=== PATIENT | female | born 1960 | race Caucasian/White ===

== ENCOUNTER 2025-02-05 08:31 | Outpatient (AMB) | payer BC, SELFPAY ==
--- OUTSIDE RECORDS SUMMARY | 2025-02-05 08:36 | XMS_ITS | Clinical Summary ---
Author Organization [facility] Address [address] [place] [address] Phone Care Team Providers Care Operations Research Engineer Name Role Phone Milton Rush MD Primary Care Provider [phone] Allergies Active Allergy Reactions Criticality Noted Date Comments Cefprozil Other Medium 01/17/2025 Ciprofloxacin 12/29/2011 Other reaction(s): Rash/Dermatitis Erythromycin Nausea And Vomiting High 07/06/2005 Lactose Diarrhea 07/05/2018 Sulfa (Sulfonamide Antibiotics) Diarrhea 09/13/2023 Sulfamethoxazole-Trimeth oprim Diarrhea 05/15/2023 unknown unknown Azithromycin Other Medium 01/17/2025 Medications EPINEPHrine (EPIPEN) 0.3 mg/0.3 mL injection INJECT SINGLE DOSE NEEDED 023 Active fluticasone HFA (FLOVENT HFA) 110 mcg/actuation inhaler Take 2 inhalations by mouth 2 (two) times a day. 022 Active insulin glargine (LANTUS) 100 unit/mL injection Inject under the skin every night at bedtime. Active cholecalciferol (VITAMIN D-3) 50 mcg (2,000 unit) tablet Take 1 tablet (2,000 Units total) by mouth 1 (one) time each day. Active ASCORBIC ACID, VITAMIN C, ORAL Take by mouth. Active BLOOD-GLUCOSE METER,CONTINUOUS MISC 1 kit by Other route every 14 (fourteen) days. Active omeprazole (PriLOSEC) [address] capsule Take 1 capsule (20 mg total) by mouth. Active multivitamin (MULTIPLE VITAMINS ORAL) Take 1 tablet by mouth 1 (one) time each day. Active lancets 33 gauge misc Apply 1 Lancet topically. Active blood sugar diagnostic (Numerify Verio test strips) test strip USE TO CHECK BLOOD SUGAR ONCE A DAY 023 Active glucagon (Baqsimi) 3 mg/actuation nasal spray Administer 3 mg into affected nostril(s) if needed. Active albuterol HFA (PROAIR HFA ; PROVENTIL HFA ; VENTOLIN HFA) 90 mcg/actuation inhaler Inhale 1 puff by mouth every 6 (six) hours if needed for wheezing or shortness of breath. Active Lantus Solostar U-100 Insulin 100 unit/mL (3 mL) injection penIndications:Ty pe 2 diabetes mellitus with other diabetic neurological complication (CMS/HCC V24, [facility] V28) INJECT 40 UNITS SUBCUTANEOUSLY ONCE DAILY 30 mL 1 025 Active atorvastatin (LIPITOR) 20 mg tablet TAKE 1 TABLET AT BEDTIME 90 tablet 1 025 Active amLODIPine (NORVASC) 10 mg tablet TAKE 1 TABLET DAILY 90 tablet 1 025 Active insulin aspart (NovoLOG FlexPen) 100 unit/mL (3 mL) injection penIndications:Ty pe II diabetes mellitus with neurological manifestations (CMS/HCC V24, CMS/HCC V28) Three times a day before meals as directed MAX up to 45 units day 45 mL 1 025 Active fluticasone propionate (FLONASE) 50 mcg/actuation nasal spray Administer 2 sprays into each nostril 1 (one) time each day. Shake gently. Before first use, prime pump. After use, clean tip and replace cap. 16 g 5 025 2025 Active losartan (COZAAR) 50 mg tablet TAKE 1 TABLET DAILY 90 tablet 1 025 Active pen needle, diabetic (BD Winsome 2nd Gen Pen Needle) 32 gauge x /32 needleIndications :Type 2 diabetes mellitus with other diabetic neurological complication ([facility] V24, [facility] V28) USE DIRECTED 5 TIMES A DAY 300 each 3 025 Active blood-glucose sensor (FreeStyle Temi 3 Plus Sensor) deviceIndications :Type 2 diabetes mellitus with other diabetic neurological complication ([facility] V24, [facility] V28) Box = Kit = EA, change sensors every 2 weeks 2 kit 11 025 Active cholestyramine (QUESTRAN) 4 gram packet Take 1 packet (4 g total) by mouth 4 (four) times a day. 360 packet 1 025 Active Eliquis 5 mg tablet TAKE 1 TABLET BY MOUTH EVERY 12 HOURS 60 tablet 3 025 Active ondansetron (ZOFRAN) 8 mg tablet Take 1 tablet (8 mg total) by mouth every 8 hours as needed. 023 2024 Discontinued Eliquis 5 mg tablet TAKE 1 TABLET BY MOUTH EVERY 12 HOURS 60 tablet 3 025 2024 Discontinued Active Problems Problem Noted Date Diagnosed Date Family history of MEN (multiple endocrine neopla quentin) 11/18/2024 Mild intermittent asthma 09/26/2024 Type 2 diabetes mellitus ([facility] V24, [facility] V 28) 09/26/2024 Anal cancer ([facility] V24, [facility] V28) Decreased sensation of foot 12/15/2023 Cancer of anorectal junction ([facility] V24, [facility]/ [facility] V28) 01/04/2023 High cholesterol 10/06/2021 Severe obesity (BMI 35.0-39. 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 Hernandez - peripheral neuropathy BRENNA (obstructive sleep apnea) 10/22/2013 Overview (05/13/2024): NOT TREATED (OCTOBER 2020) [facility] Sleep Center Polysomnogram: Date 10/04/2013; Wt 225#; BMI 35; SE 66%; SM 66%; REM 34%; RDI 13 (AHI 8), REM (RDI 30 - AHI 29), Central apneas 1; Obstructive apneas 8; Mixed apneas 0; hypopneas 25; RERAs 22; average oxygen saturation 95% (lowest 88% - without saturations <88% for 5% or more of study); PLMs 15. - Obstructive Sleep Apnea - mild overall and moderate in REM; mostly hypopneas and obstructive apneas; without sleep related hypoventilation by 2019 polysomnogram. 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 Sister is homozygous. C282Y. Acid reflux disease 02/05/2009 Nephrolithiasis 08/27/2008 Overview (05/13/2024): 3-mm stone, CAT scan, 05/15/2008 Lithotripsy 01/14 Left ureter stone 07/16, hydronephrosis and hydroureter Hyperparathyroidism ([facility] V24) 02/20/2008 Overview (05/13/2024): Parathyroidectomy 03/19/2004, parathyroid hyperplasia, right upper, right lower, and left upper parathyroid resected. Allergic rhinitis 07/06/2005 Asthma 07/06/2005 Chronic sinusitis 07/06/2005 Hypertension 07/06/2005 Irritable bowel syndrome with diarrhea 5 Encounters Date Type Department Care Team Description 02/04/2025 2:48 PM EDT Hospital Encounter [facility] PET Scan [address] [place] [phone] Cancer of anorectal junction ([facility]/HCC V24, [facility] V28) 01/31/2025 9:00 AM EDT Office Visit General Surgery - [place] [address] [phone] John Barillas MD Anal cancer ([facility]/HCC V24, [facility] V28) (Primary Dx) 01/29/2025 11:15 AM EDT Office Visit [facility] Hematology Oncology [address] [place] [phone] Chrissy Briggs MD Cancer of anorectal junction ([facility]/HCC V24, [facility] V28) (Primary Dx) 01/23/2025 Telephone [facility] Hematology Oncology [address] [place] [phone] Chrissy Briggs MD 01/22/2025 8:39 AM EDT - 01/22/2025 11:59 PM EDT Hospital Encounter [facility] Neurodiagnostic [address] [place] [phone] Discharge Disposition: Home or Self Care 01/21/2025 8:39 AM EDT - 01/21/2025 11:59 PM EDT Hospital Encounter [facility] Neurodiagnostic [address] [place] [phone] Discharge Disposition: Home or Self Care 01/20/2025 7:51 AM EDT - 01/20/2025 11:59 PM EDT Hospital Encounter [facility] Neurodiagnostic [address] [place] [phone] Discharge Disposition: Home or Self Care 01/17/2025 8:27 AM EDT Anesthesia Event [facility] Endoscopy [address] [place] [phone] Pardeep Blackburn DO 01/17/2025 7:36 AM EDT - 01/17/2025 11:59 PM EDT Hospital Encounter [facility] Endoscopy [address] [place] [phone] Ngoc Antony DO Barnes, Tyanna R, CRNA Anal cancer ([facility] V24, [facility] V28) Discharge Disposition: Home or Self Care 01/15/2025 8:45 AM EDT Office Visit [facility] Hematology Oncology [address] [place] [phone] Chrissy Briggs MD Cancer of anorectal junction ([facility] V24, [facility] V28) (Primary Dx); Malignant neoplasm of anorectum ([facility] V24, [facility] V28) 01/10/2025 Telephone Gastroenterology - [place] 175 [facility] 175 [facility] [address] [place] [phone] Jessica Kirk LPN Anticoagulation (Colonoscopy on 01/17/[address] Antony) 01/09/2025 Telephone Adult Medicine [address] [phone] Milton Rush MD Referral 12/31/2024 9:00 AM EDT Office Visit Endocrinology - [address] [phone] Chetan Pulido MD Type 2 diabetes mellitus with other diabetic neurological complication ([facility] V24, [facility] V28) 12/25/2024 9:00 AM EDT Office Visit Adult Medicine [address] [phone] Barbara Coulter PA Hypertension, unspecified type (Primary Dx); Type II diabetes mellitus with neurological manifestations ([facility] V24, [facility] V28); High cholesterol; Hyperparathyroidism ([facility] V24); Anal cancer ([facility] V24, [facility] V28) 11/28/2024 10:00 AM EDT - 11/28/2024 11:59 PM EDT Hospital Encounter [address] [phone] Other cough Discharge Disposition: Home or Self Care 11/28/2024 9:30 AM EDT Office Visit Adult Medicine [address] [phone] Isaac Walsh MD Other cough (Primary Dx); Rhinitis, unspecified type; Mild intermittent asthma, unspecified whether complicated 11/27/2024 Nurse Triage Adult Medicine [address] [phone] Milton Rush MD Cough; Asthma; Sinusitis 11/23/2024 12:11 PM EDT - 11/23/2024 11:59 PM EDT Hospital Encounter [facility] MRI [address] [place] [phone] Anal cancer ([facility] V24, [facility] V28) Discharge Disposition: Home or Self Care 11/20/2024 Telephone Adult Medicine [address] [phone] Milton Rush MD Referral ([facility]) 11/14/2024 8:30 AM EDT Office Visit [address] [phone] Chetan Pulido MD Type II diabetes mellitus with neurological manifestations ([facility] V24, [facility] V28) (Primary Dx) 11/14/2024 Telephone General Surgery [facility] [address] [phone] John Barillas MD UPDATE ON REFERRAL TO DR. MEZA 11/14/2024 Telephone General Surgery [facility] [address] [phone] John Barillas MD 11/06/2024 Lab [facility] Neurodiagnostic [address] [place] [phone] Mark aSntillan MD Partial seizure disorder ([facility] V24, [facility] V28) from Last 3 Months Immunizations Name Administration Dates Next Due H1N1 Inj Preservative Free 09/10/2009 Influenza Quadravalent, MDCK , 0.5ml, preservative free (Flucelvax) 6mo and older 06/05/2019,08/17/2018 Influenza trivalent, with pr eservative (Fluzone; Afluria) 6mo and older 08/05/2015,05/25/2014,05/15/2013,05/17,05/11/2011,05/13/2010,04/22/2009 ,08/27/2008,05/16/2007,05/22/2006,05/08 Pneumococcal polysaccharide 23 valent (Pneumovax 23) 2yo and older 05/27/2014 Td Tetanus diptheria (Tdvax) 7yo and older 04/05/2018 Tdap Tetanus diptheria acell ular pertussis (Boostrix; Adacel) 7yo and older 02/20/2008 Surgical History Surgery Date Site/Laterality Comments OTHER SURGICAL HISTORY PROCEDURE: MI BIOPSY OVARY UNI/BI SEPARATE PROCEDURE; COMMENT: right ovary/ cyst removed TUBAL LIGATION PROCEDURE: HISTORICAL TUBAL LIGATION PARATHYROIDECTOMY 2002 PROCEDURE: HISTORICAL PARATHYROIDECTOMY; COMMENT: about 15 years ago COLONOSCOPY 2012 PROCEDURE: HISTORICAL COLONOSCOPY; COMMENT: Normal to cecum; propofol at [facility]. COLONOSCOPY 12/09/2002 PROCEDURE: HISTORICAL COLONOSCOPY; COMMENT: Negative/incomplete to 35 cm for rectal bleeding. BREAST SURGERY Left PROCEDURE: MI UNLISTED PROCEDURE BREAST; COMMENT: cystectomy 03/2017 neg OTHER SURGICAL HISTORY PROCEDURE: CHG GI IBS IA ANTI-CDTB&ANTI-VINCULIN ANTB PLSM ALG LITHOTRIPSY Medical History Medical History Date Comments Irritable bowel syndrome 07/06/2005 DX:Irri table bowel syndrome Hyperparathyroidism ([facility] V24) 02/20/2008 DX:Hyperparathyroidism ([facility]); COMMENT: Parathyroidectomy 03/19/2004, parathyroid hyperplasia Nephrolithiasis 08/27/2008 DX:Nephrolithias is Hypertension 07/06/2005 DX:Hypertension Allergic rhinitis 07/06/2005 DX:Allergic rh initis Chronic sinusitis 07/06/2005 DX:Chronic sin usitis Asthma 07/06/2005 DX:Asthma 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 Sister is homozygous. C282Y. GERD (gastroesophageal reflux disease) 9 DX:GERD (gastroesophageal reflux disease) Family history of colonic polyps 02/26/2009 DX:Family history of colonic polyps; COMMENT: Negative/incomplete colonoscopy 12/09/2002. Negative colonoscopy 05/31/2013, no colon cancer screening needed for 10 years. Microalbuminuria 12/07/2012 DX:Microalbumin uria; COMMENT: 116 on 06/27/2010. BRENNA (obstructive sleep apnea) 10/22/2013 DX :BRENNA (obstructive sleep apnea); COMMENT: Noncompliant with CPAP Postmenopausal bleeding 10/03/2012 DX:Postm enopausal bleeding Prediabetes 07/26/2016 DX:Prediabetes IBS (irritable bowel syndrome) D X:IBS (irritable bowel syndrome) Diabetes 1.5, managed as typ e 2 (CMS/HCC V24, CMS/HCC V28) DX:Diabetes 1.5, managed as type 2 (HCC) Rectal bleeding DX:Rectal bleedi ng Rectal cancer (CMS/HCC V24, CMS/HCC V28) Pulmonary embolus (CMS/HCC V 24, CMS/HCC V28) Family History Medical History Relation Name Comments Hypertension Brother 1 Hyperlipidemia Brother 2 Asthma Daughter 1 Asthma Daughter 2 Heart attack Father age 65, alive Breast cancer Father's side p. aunt aunt Diabetes Maternal Grandfather CHF, Hy pertension Hypertension Mother fibromyalgia, C HF, Diabetes, skin cancer, sleep apnea, CKD, athritis, colon polyps Hemochromatosis Sister 1 homozygous C 282Y Relation Name Status Comments Brother 1 Brother 2 Brother 3 Alive x1 Daughter 1 Daughter 2 Daughter 3 Alive x2 Father Alive Father's side p. aunt Maternal Grandfather Maternal Grandmother Mother Alive Paternal Grandfather Paternal Grandmother Sister 1 Sister 2 Alive x1 Social History Tobacco Use Types Packs/Day Years Used Date Smoking Tobacco: Former Cigarettes Q uit: 08/07/1976 Smokeless Tobacco: Never Tobacco Cessation:Counseling Given: Not Answered Alcohol Use Standard Drinks/Week Comments Yes 0 (1 standard drink = 0.6 oz pur e alcohol) Housing Instability Answer Date Recorde d Are you worried that in the next 2 months you may not have stable housing? No 06/17/2024 Food Access & Nutrition Answer Date Rec orded Do you have access to a vari ety of food including fruits and vegetables? Yes 06/17/2024 Access to Healthcare Answer Date Record ed Within the last 3 months, ho w many times did you visit the emergency department for your medical care? 0 06/17/2024 Health Literacy Answer Date Recorded How often do you need to hav e someone help you when you read instructions, pamphlets, or other written material from your doctor or pharmacy? Never 06/17/2024 Caregiver: How often do you need to have someone help you when you read instructions, pamphlets, or other written material from your doctor or pharmacy? Not on file 06/17/2024 Financial Risk Answer Date Recorded How hard is it for you to pa y for the very basics like food, housing, medical care, and air conditioning / heating? Not very hard 06/17/2024 Transportation Answer Date Recorded Has the lack of transportati on kept you from meetings, work, or from getting things needed for daily living? No Has the lack of transportati on kept you from medical appointments or from getting medications? No 06/17/2024 Social Isolation Answer Date Recorded How often do you feel lonely or isolated from th ose around you? Never 06/17/2024 Food Risk Answer Date Recorded Within the past 12 months we worried whether our food would run out before we got money to buy more. Never true 06/17/2024 Within the past 12 months th e food we bought just didn't last and we didn't have money to get more. Never true 06/17/2024 Dependent Care Answer Date Recorded Do you need help finding or paying for care for your loved ones. For example, children's book author or elderly care for an older adult? No 06/17/2024 Education Answer Date Recorded Do you think completing more education or training, like finishing a GED, going to college, or learning a trade, would be helpful for you? N/A 06/17/2024 Employment and Income Answer Date Recor ded During the last four weeks, have you been actively looking for work? No 06/17/2024 Living Situation Answer Date Recorded What is your living situation? 1 08/17/2023 Interpersonal Safety Answer Date Record ed Physical Abuse 01/17/2025 Verbal Abuse 01/17/2025 Comments No Sex and Gender Information Value Date Recorded Sex Assigned at Not on file Legal Sex Female 11:56 AM EST Gender Identity Not on file Sexual Orientation Not on file Obstetrics History Para Term AB IAB SAB Ectopic Multiple Livin g Live Births 2 2 2 2 Date Outcome GA Total Labor Labor/2nd/3rd Weight Sex Type Anes PTL Kristen A1 A5 Name Clin Term Term Last Filed Vital Signs Vital Sign Reading Time Taken Comments Blood Pressure 140/83 01/31/2025 8:57 AM EDT Pulse 84 01/31/2025 8:57 AM EDT Temperature 36.3 C (97.3 F) 01/31/2025 8:57 AM EDT Respiratory Rate 20 01/17/2025 8:55 AM EDT Oxygen Saturation 99% 01/29/2025 11:18 AM EDT Inhaled Oxygen Concentration - - Weight 107 kg (236 lb) 01/31/2025 8:57 AM EDT Height 168.9 cm (5' 6.5 ) 01/31/2025 8:57 AM EDT Body Mass Index 37.52 01/31/2025 8:57 AM EDT Plan of Treatment Upcoming Encounters Date Type Department Care Team (Late st Contact Info) Description 03/04/2025 8:20 AM EDT Office Visit Gastroenterology - [place] [address] [phone] Zohreh Sotelo NP [address] [phone] 04/01/2025 9:00 AM EDT Appointment [facility] Radiation Oncology [address] [place] [phone] Kristen Roe NP [address] [place] [address] 04/02/2025 9:00 AM EDT Office Visit Endocrinology [address] [phone] Chetan Pulido MD [address] [place] [address] 05/15/2025 8:15 AM EDT Office Visit Pulmonolgy - [place] [address] [phone] Jose M Hall MD [address] [address] 05/20/2025 9:45 AM EDT Office Visit [facility] Hematology Oncology [address] [place] [phone] Chrissy Briggs MD [address] [place] [address] 08/04/2025 8:30 AM EST Office Visit Adult Medicine [address] [phone] Milton Rush MD [address] [place] [phone] 10/06/2025 9:20 AM EST Appointment Radiology Department - [address] [phone] Health Maintenance Due Date Last Done Comments Diabetes: Annual Retina Eye Exam 1970 Zoster Vaccines (1 of 2) 1979 Pneumococcal Vaccine: 50+ Years (2 of 2 - PCV) 05/27/2015 05/27/2014 Pneumococcal Vaccine: Pediatrics (0 to 5 Years) and At-Risk Patients (6 to 64 Years) (2 of 2 - PCV) 05/27/2015 05/27/2014 RSV Immunization Adult Patients (1 - Risk 60-74 years 1-dose series) 2020 HIV Screening 07/16/2022 COVID-19 Vaccine (2023- season) 2024 06/25/2022, 05/14/2021, 11/05/2020, Additional history exists Diabetes: Annual Foot Exam 12/14/2024 12/15/2023 Influenza Vaccine (#1) 2025 9, 08/17/2018, 08/05/2015, Additional history exists Social Influencers of Health Screening 06/17/2025 06/17/2024 Diabetes: Annual Urine Albumin-Creatinine Ratio (uACR) 06/24/2025 06/24/2024, 12/15/2023 Diabetes: Blood Sugar Control Test (HGBA1C) 06/27/2025 12/25/2024, 06/24/2024, 12/15/2023, Additional history exists Depression Screening 11/27/2025 11/27/2024 Cervical Cancer Screening: Pap Smear 12/19/2025 12/19/2022, 12/19/2022, 12/19/2022, Additional history exists Diabetes: Annual GFR (Glomerular Filtration Rate) 12/25/2025 12/25/2024, 06/24/2024, 12/15/2023, Additional history exists Hypertension/CHF/CAD Annual BMP Blood Test 12/25/2025 12/25/2024, 06/24/2024, 12/15/2023, Additional history exists Colorectal Cancer Screening: Colonoscopy 09/21/2026 09/21/2023 Breast Cancer Screening 10/05/2026 10/06/19, 09/09/2023, 08/27/2022, Additional history exists Cervical Cancer Screening: HPV 12/20/2027 12/19/2022 DTaP,Tdap,and Td Vaccines (3 - Td or Tdap) 04/05/2028 04/05/2018, 02/20/2008 Cholesterol Screening (Lipid Panel) 12/25/2029 12/25/2024, 06/24/2024, 12/15/2023, Additional history exists Hepatitis C Screening Completed 01/08/2013 HIB Vaccines Aged Out No longer eligi ble based on patient's age to complete this topic HPV Vaccines Aged Out No longer eligi ble based on patient's age to complete this topic Hepatitis A Vaccines Aged Out No long er eligible based on patient's age to complete this topic Hepatitis B Vaccines Aged Out No long er eligible based on patient's age to complete this topic IPV Vaccines Aged Out No longer eligi ble based on patient's age to complete this topic MMR Vaccines Aged Out No longer eligi ble based on patient's age to complete this topic Meningococcal ACWY Vaccine Aged Out N o longer eligible based on patient's age to complete this topic Meningococcal B Vaccine Aged Out No l onger eligible based on patient's age to complete this topic RSV Immunization Patients Under 20 months Aged Out No longer eligible based on patient's age to complete this topic Varicella Vaccines Aged Out No longer eligible based on patient's age to complete this topic Procedures Procedure Name Priority Date/Time Associated Diagnosis Comments CONTINUOUS EEG Routine 01/21/2025 9:04 AM EDT Partial seizure disorder ([facility] V24, [facility] V28) CONTINUOUS EEG Routine 01/20/2025 9:18 AM EDT Partial seizure disorder ([facility] V24, [facility]/H[facility] V28) FLEXIBLE SIGMOIDOSCOPY Routine 01/17/2025 8:34 AM EDT Anal cancer ([facility] V24, [facility] V28) TISSUE EXAM Routine 01/17/2025 8:31 AM EDT Anal cancer ([facility]/HCC V24, [facility]/HCC V28) LIPID PANEL WITH REFLEX TO DIRECT LDL Routine 12/25/2024 9:47 AM EDT High cholesterol HEMOGLOBIN A1C Routine 12/25/2024 9:47 AM EDT Type II diabetes mellitus with neurological manifestations ([facility] V24, [facility] V28) COMPREHENSIVE METABOLIC PANEL Routine 12/25/2024 9:47 AM EDT Hypertension, unspecified type XR CHEST 2 VIEWS STAT 11/28/2024 10:0 6 AM EDT Other cough MR PELVIS WO AND W CONTRAST Routine 11/23/2024 1:17 PM EDT Anal cancer ([facility] V24, [facility] V28) MG MAMMO DIGITAL SCREENING W JUAN BILAT Routine 10/05/2024 9:06 AM EST Encounter for screening mammogram for breast cancer MICROALBUMIN CREATININE URINE RATIO Routine 06/24/2024 9:17 AM EST Type II diabetes mellitus with neurological manifestations (CMS/HCC V24, CMS/HCC V28) DIABETES FOOT EXAM Routine 12/15/2023 COLONOSCOPY Routine 09/21/2023 HPV Routine 12/19/2022 PAP SMEAR Routine 12/19/2022 HEPATITIS C SCREENING Routine 01/08/2013 from Last 3 Months or Most Recently Relevant to Health Maintenance Results * Continuous EEG (01/21/2025 9:04 AM EDT) Narrative Mark Santillan MD - 02/01/2025 3:37 PM EDT Table formatting from the original result was not included. Images from the original result were not included. [facility] [address] [place] [id number] Ambulatory Electroencephalogram Report Date of service: 01/21/25 Patient Name: Elsa Rodriguez Date of : 1960 Age: 64 y.o. Gender: female Procedure Order: Continuous EEG Ordering Provider: Mark Santillan MD Reason for Exam: Order Questions Answers Type of monitoring Unmonitored With video? No Diagnosis listed on Order: Partial seizure disorder (CMS/HCC V24, CMS/HCC V28) This is a recurrent day study. Please see report with final results. us Mark Santillan MD NEUROLOGY ORDERABLES Final Result * Continuous EEG (01/20/2025 9:18 AM EDT) Narrative Mark Santillan MD - 02/01/2025 3:37 PM EDT Table formatting from the original result was not included. Images from the original result were not included. [facility] [address] [place] [id number] Ambulatory Electroencephalogram Report Date of service: 01/20/25 Patient Name: Elsa Rodriguez Date of : 1960 Age: 64 y.o. Gender: female Procedure Order: Continuous EEG Ordering Provider: Mark Santillan MD Reason for Exam: Order Questions Answers Type of monitoring Unmonitored With video? No Diagnosis listed on Order: Partial seizure disorder (CMS/HCC V24, CMS/HCC V28) Procedure Performed: 48-hour EEG. EEG Technical Description: This study was performed using the 10-20 International Electrode System placement and single channel EKG electrode on Trex recorder. Settings included: low frequency filter of 1 Hz, high frequency filter of 70 Hz, sensitivity of 7 uV/mm, a display speed of 30 mm/sec, with a 60 Hz notched filter applied as appropriate. Modifications in these parameters were made as necessary for further waveform resolution. Video Recording: No Description: This is a 16 channel 48-hour ambulatory EEG. Patient kept a diary of each day and did not report any events. HDF EEG was separately reviewed and included wakefulness and sleep. Background EEG rhythm during wakefulness was symmetric alpha posteriorly lower amplitude faster anteriorly with some late and muscle artifacts. At times periods of posterior sharply contoured theta range discharges were noted. More specifically, sharply contoured discharges were noted in the left temporal, T3, and right temporal, T4, area. Cardiac lead did not reveal any significant abnormality. Impression: Mildly abnormal EEG suggestive of temporal irritability. us Mark Santillan MD NEUROLOGY ORDERABLES Final Result * FLEXIBLE SIGMOIDOSCOPY Anesthesia - MAC; [facility] ENDOSCOPY (01/17/2025 8:34 AM EDT) Anatomical Region Laterality Modality Endoscopy 01/17/2025 8:27 AM EDT Impressions 01/17/2025 8:34 AM EDT - No specimens collected. Recommendation: - Discharge patient to home. - Await pathology results. Narrative 01/17/2025 8:34 AM EDT [facility] GI Patient Name: Elsa Rodriguez Procedure Date: 01/17/2025 8:27 AM Date of : 1960 Age: 64 Gender: Female Note Status: Finalized Attending MD: Ngoc Antony DO, [id number] Procedure Date No Time: 01/17/2025 Procedure: Flexible Sigmoidoscopy Indications: High risk colon cancer surveillance: Personal history of colon cancer Providers: Ngoc Antony DO Referring MD: Milton Rush MD Medicines: Monitored Anesthesia Care Complications: No immediate complications. Estimated blood loss: Minimal. Estimated Blood Loss: Estimated blood loss was minimal. Procedure: Pre-Anesthesia Assessment: - - Prior to the procedure, a History and Physical was performed, and patient medications and allergies were reviewed. The patient is competent. The risks and benefits of the procedure and the sedation options and risks were discussed with the patient. All questions were answered and informed consent was obtained. Patient identification and proposed procedure were verified by the physician, the nurse, the anesthesiologist, the intermediate manager and the process engineering technician in the pre-procedure area in the endoscopy suite. Mental Status Examination: alert and oriented. Airway Examination: normal oropharyngeal airway and neck mobility. Respiratory Examination: clear to auscultation. CV Examination: normal. Prophylactic Antibiotics: The patient does not require prophylactic antibiotics. Prior Anticoagulants: The patient has taken no anticoagulant or antiplatelet agents. ASA Grade Assessment: II - A patient with severe systemic disease. After reviewing the risks and benefits, the patient was deemed in satisfactory condition to undergo the procedure. The anesthesia plan was to use monitored anesthesia care (MAC). Immediately prior to administration of medications, the patient was re-assessed for adequacy to receive sedatives. The heart rate, respiratory rate, oxygen saturations, blood pressure, adequacy of pulmonary ventilation, and response to care were monitored throughout the procedure. The physical status of the patient was re-assessed after the procedure. After obtaining informed consent, the endoscope was passed under direct vision. Throughout the procedure, the patient's blood pressure, pulse, and oxygen saturations were monitored continuously. The Olympus Gastroscope was introduced through the anus and advanced to the sigmoid colon. The flexible sigmoidoscopy was accomplished without difficulty. The patient tolerated the procedure well. The quality of the bowel preparation was good. Findings: Hemorrhoids were found on perianal exam. A small scar was found in the distal rectum. The scar tissue was healthy in appearance. Biopsies were taken with a cold forceps for histology. Estimated blood loss was minimal. Procedure Code(s): --- Professional --- 28856, Sigmoidoscopy, flexible; with biopsy, single or multiple Diagnosis Code(s): --- Professional --- Z85.038, Personal history of other malignant neoplasm of large intestine CPT copyright 2020 [employer]. All rights reserved. The codes documented in this report are preliminary and upon stull hewer review may be revised to meet current compliance requirements. NGOC Antony DO 01/17/2025 8:34:30 AM This report has been signed electronically.Ngoc Antony DO Number of Addenda: 0 Note Initiated On: 01/17/2025 8:27 AM Scope In: Scope Out: Endoscopy Department at [facility] - [address] [place] [id number] Procedure Note Ngoc Antony DO - 01/17/2025 [facility] GI Patient Name: Elsa Rodriguez Procedure Date: 01/17/2025 8:27 AM Date of : 1960 Age: 64 Gender: Female Note Status: Finalized Attending MD: Ngoc Antony DO, [id number] Procedure Date No Time: 01/17/2025 Procedure: Flexible Sigmoidoscopy Indications: High risk colon cancer surveillance: Personalhistory of colon cancer Providers: Ngoc Antony DO Referring MD: Milton Rush MD Medicines: Monitored Anesthesia Care Complications: No immediate complications. Estimated blood loss: Minimal. Estimated Blood Loss: Estimated blood loss was minimal. Procedure: Pre-Anesthesia Assessment: - - Prior to the procedure, a History and Physicalwas performed, and patient medications and allergieswere reviewed. The patient is competent. The risks and benefits of the procedure and the sedation optionsand risks were discussed with the patient. Allquestions were answered and informed consent was obtained. Patient identification and proposed procedure were verified by the physician, the nurse, the anesthesiologist, the intermediate manager and thetechnician in the pre-procedure area in the endoscopy suite. Mental Status Examination: alert and oriented.Airway Examination: normal oropharyngeal airway and neck mobility. Respiratory Examination: clear to auscultation. CV Examination: normal. Prophylactic Antibiotics: The patient does not requireprophylactic antibiotics. Prior Anticoagulants: The patient has taken no anticoagulant or antiplatelet agents. ASA Grade Assessment: II - A patient with severesystemic disease. After reviewing the risks and benefits,the patient was deemed in satisfactory condition to undergo the procedure. The anesthesia plan was touse monitored anesthesia care (MAC). Immediately priorto administration of medications, the patient was re-assessed for adequacy to receive sedatives. The heart rate, respiratory rate, oxygen saturations, blood pressure, adequacy of pulmonary ventilation,and response to care were monitored throughout the procedure. The physical status of the patient was re-assessed after the procedure. After obtaining informed consent, the endoscope was passed under direct vision. Throughout theprocedure, the patient's blood pressure, pulse, and oxygen saturations were monitored continuously. TheOlympus Gastroscope was introduced through the anus and advanced to the sigmoid colon. The flexible sigmoidoscopy was accomplished without difficulty.The patient tolerated the procedure well. The qualityof the bowel preparation was good. Findings: Hemorrhoids were found on perianal exam. A small scar was found in the distal rectum. Thescar tissue was healthy in appearance. Biopsies weretaken with a cold forceps for histology. Estimated blood loss was minimal. Procedure Code(s): --- Professional --- 28859, Sigmoidoscopy, flexible; with biopsy, singleor multiple Diagnosis Code(s): --- Professional --- Z85.038, Personal history of other malignantneoplasm of large intestine CPT copyright 2020 [employer]. All rights reserved. The codes documented in this report are preliminary and upon stull hewer reviewmay be revised to meet current compliance requirements. NGOC Antony DO 01/17/2025 8:34:30 AM This report has been signed electronically.Ngoc Antony DO Number of Addenda: 0 Note Initiated On: 01/17/2025 8:27 AM Scope In: Scope Out: Endoscopy Department at [facility] - [address] [place] [phone] IMPRESSION: - No specimens collected. Recommendation: - Discharge patient to home. - Await pathology results. 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 (See note.) - Immunohistochemical studies were performed and the results are as follows: p63: Atypical cells of interest present mainly in rounded nests. p16: Block-like immunoreactivity is present in s93-hmhqzuic cells. Interpretation: The immunohistochemical results show diffuse expression of p16 and p63 in the atypical cells of interest. Note: The atypical squamous epithelium shows diffuse, block-like immunoreactivity for p16. The rounded configuration of the nests and absence of stromal desmoplasia (seen in slides from the patient's prior biopsy specimen, [id number]) suggest that much of the neoplastic proliferation in the current biopsy represents squamous cell carcinoma in situ. However, the presence of rare single cells extending beyond the rounded nests supports interpretation as at least focally invasive squamous cell carcinoma. 5 9:32 AM EDT [facility] Comment Cinder Block Maker slide(s) from this case have been presented at Anatomic Pathology Intradepartmental Review Conference on 01/20/2025. Dr. Frandy Antony was notified of the diagnosis by Dr. Taras Graves via secure text on 01/21/2025 at 9:15 a.m. 5 9:32 AM EDT [facility] Gross Description A. Large Intestine, Rectum, cancer surgical site biopsies: Labeled LI rectum ca . Received in formalin, are four irregular soft to rubbery, elizabeth-pink to red tissue fragments, approximately ranging from 0.1 cm to 0.6 cm in greatest diameters, which are wrapped in paper and submitted in toto in one cassette, four pieces, multiple levels. Please note: Small tissue fragments may not survive processing. hs/DG 5 9:32 AM EDT [facility] Disclaimer NOTE: The immunohistochemical tests and in situ hybridization tests were developed and their performance characteristics were determined by [facility]. They have not been cleared or approved by the U.S. Food and Drug Administration. The FDA has determined that such clearance or approval is not necessary. These tests are used for clinical purposes. They should not be regarded as investigational or for research. This laboratory is certified under the Clinical Laboratory Improvement Amendments of 1988 (CLIA) as qualified to perform high complexity clinical laboratory testing. (controls appropriate) Unless otherwise specified, all tissue is 10% NB formalin fixed and paraffin embedded. 9:32 AM EDT [facility] Tissue Rectum structure / Unknown 01/17/2025 8:31 AM EDT 01/17/2025 9:48 AM EDT us Ngoc Antony DO LAB PATHOLOGY ORDERABLES Final R esult [facility] [address] [place] [address], * (ABNORMAL) Lipid panel with reflex to direct LDL (12/25/2024 9:47 AM EDT) Cholesterol 157 0 - 200 mg/dL LAB CHEMISTRY METHOD 12/25/2024 12:49 PM EDT [facility] Triglycerides 166(H) 0 - 150 mg/dL LAB CHEMISTRY METHOD 12/25/2024 12:49 PM EDT [facility] HDL 56 >=40 mg/dL LAB CHEMISTRY METHOD 12/25/2024 12:49 PM EDT [facility] LDL Calculated 68 0 - 100 mg/dL LAB CHEMISTRY METHOD 12/25/2024 12:49 PM EDT [facility] VLDL Cholesterol Arpan 33.2 mg/dL LAB CHEMISTRY METHOD 12/25/2024 12:49 PM EDT [facility] Non HDL Chol. (LDL+VLDL) 101 <145 mg/dL LAB CHEMISTRY METHOD 12/25/2024 12:49 PM EDT [facility] Chol/HDL Ratio 2.8 0.0 - 4.4 LAB CHEMISTRY METHOD 12/25/2024 12:49 PM EDT [facility] Blood Venous blood specimen / Unknown Venipuncture / Unknown 12/25/2024 9:47 AM EDT 12/25/2024 9:47 AM EDT Barbara Coulter [place] LAB BLOOD ORDERABLES Fi nal Result Performing Organization Address City/[facility]/ZIP Co de Phone Number [facility] [address] [place] [address], [place] [phone] * (ABNORMAL) Hemoglobin A1c (12/25/2024 9:47 AM EDT) Hemoglobin A1C 9.4(H) <6.5 % LAB CHEMISTRY METHOD 12/27/2024 10:34 PM EDT [facility] Mean Bld Glu Estim. 223 mg/dL LAB CHEMISTRY METHOD 12/27/2024 10:34 PM EDT [facility] Blood Venous blood specimen / Unknown Venipuncture / Unknown 12/25/2024 9:47 AM EDT 12/25/2024 9:47 AM EDT Barbara FELICIANO LAB BLOOD ORDERABLES Fi nal Result Performing Organization Address City/[facility]/ZIP Co de Phone Number [facility] [address] [place] [address], [place] [phone] * (ABNORMAL) Comprehensive metabolic panel (12/25/2024 9:47 AM EDT) Sodium 139 133 - 145 mmol/L LAB CHEMISTRY METHOD 12/25/2024 12:55 PM EDT [facility] Potassium 4.4 3.5 - 5.5 mmol/L LAB CHEMISTRY METHOD 12/25/2024 12:55 PM EDT [facility] Chloride 103 96 - 110 mmol/L LAB CHEMISTRY METHOD 12/25/2024 12:55 PM [facility] CO2 25 21 - 32 mmol/L LAB CHEMISTRY METHOD 12/25/2024 12:55 PM [facility] Anion Gap 11 3 - 11 LAB CHEMISTRY METHOD 12/25/2024 12:55 PM [facility] Glucose 239(H) 70 - 100 mg/dL LAB CHEMISTRY METHOD 12/25/2024 12:55 PM [facility] BUN 15 5 - 25 mg/dL LAB CHEMISTRY METHOD 12/25/2024 12:55 PM [facility] Creatinine 0.83 0.50 - 1.10 mg/dL LAB CHEMISTRY METHOD 12/25/2024 12:55 PM [facility] eGFR 79 >=60 mL/min/1. 73m2 LAB CHEMISTRY METHOD 12/25/2024 12:55 PM [facility] Comment:Calculation based on the Chronic Kidney Disease Epidemiology Collaboration (CKD-EPI) equation refit without adjustment for race. BUN/Creatinine Ratio 18.1 LAB CHEMISTRY METHOD 12/25/2024 12:55 PM [facility] Calcium 8.8 8.5 - 10.5 mg/dL LAB CHEMISTRY METHOD 12/25/2024 12:55 PM [facility] AST (SGOT) 30 10 - 42 unit/L LAB CHEMISTRY METHOD 12/25/2024 12:55 PM [facility] ALT (SGPT) 46 10 - 60 unit/L LAB CHEMISTRY METHOD 12/25/2024 12:55 PM [facility] Alkaline Phosphatase 141(H) 42 - 121 unit/L LAB CHEMISTRY METHOD 12/25/2024 12:55 PM [facility] Total Protein 7.6 6.0 - 8.0 g/dL LAB CHEMISTRY METHOD 12/25/2024 12:55 PM [facility] Albumin 3.6 3.2 - 5.0 g/dL LAB CHEMISTRY METHOD 12/25/2024 12:55 PM EDT [facility] Total Bilirubin 0.6 0.0 - 1.4 mg/dL LAB CHEMISTRY METHOD 12/25/2024 12:55 PM EDT [facility] Blood Venous blood specimen / Unknown Venipuncture / Unknown 12/25/2024 9:47 AM EDT 12/25/2024 9:47 AM EDT Barbara FELICIANO LAB BLOOD ORDERABLES Fi nal Result [facility] [address] [place] [address], * XR Chest 2 Views (11/28/2024 10:06 AM EDT) Anatomical Region Laterality Modality Body Radiographic Kathy ging 11/28/2024 10:2 0 AM EDT Impressions 11/28/2024 10:22 AM EDT No acute pulmonary pathology. -------- FINAL REPORT -------- Dictated By: Alisha Frank Dictated Date: 11/28/2024 10:20 ET Assigned Physician: Alisha Frank Reviewed and Electronically Signed By: Alisha Frank Signed Date: 11/28/2024 10:22 ET Workstation ID: [id number] Transcribed By: Self Edit Transcribed Date: 11/28/2024 10:20 ET Narrative 11/28/2024 10:22 AM EDT CHEST, TWO VIEWS HISTORY: Cough. TECHNIQUE: Frontal and lateral views of the chest. PRIOR: Chest x-ray 04/27/2022. FINDINGS: The lungs are clear. No pleural effusion is seen. No pneumothorax is seen. The cardiac diameter is within normal limits. No acute or aggressive appearing bony abnormalities are seen. There is mild curvature and degenerative change of the spine. Surgical clips are noted in the right upper quadrant. Procedure Note Alisha Frank MD - 11/28/2024 CHEST, TWO VIEWS HISTORY: Cough. TECHNIQUE: Frontal and lateral views of the chest. PRIOR: Chest x-ray 04/27/2022. FINDINGS: The lungs are clear. No pleural effusion is seen. No pneumothorax is seen. The cardiac diameter is within normal limits. No acute or aggressive appearing bony abnormalities are seen. There ismild curvature and degenerative change of the spine. Surgical clips are noted in the right upper quadrant. IMPRESSION: No acute pulmonary pathology. -------- FINAL REPORT -------- Dictated By: Alisha Frank Dictated Date: 11/28/2024 10:20 ET Assigned Physician: Alisha Frank Reviewed and Electronically Signed By: Alisha Frank Signed Date: 11/28/2024 10:22 ET Workstation ID: [id number] Transcribed By: Self Edit Transcribed Date: 11/28/2024 10:20 ET Isaac Walsh MD IMG XR PROCEDURES Final Result * MR Pelvis wo and w Contrast (11/23/2024 1:17 PM EDT) Anatomical Region Laterality Modality Pelvis, Body Magnetic Resonan ce 11/25/2024 1:39 PM EDT Impressions 11/25/2024 3:45 PM EDT Stable curvilinear anorectal lesion, correlating with a site of treated neoplastic disease. -------- FINAL REPORT -------- Dictated By: Jay Sinha Dictated Date: 11/25/2024 13:39 ET Assigned Physician: Jay Sinha Reviewed and Electronically Signed By: Jay Sinha Signed Date: 11/25/2024 15:45 ET Workstation ID: [id number] Transcribed By: Self Edit Transcribed Date: 11/25/2024 13:39 ET Narrative 11/25/2024 3:45 PM EDT PROCEDURE: Contrast enhanced MRI of the pelvis. TECHNIQUE: Multiplanar multisequence MRI of the pelvis with and without intravenous contrast administration. IV contrast dose: 20 mL intravenous Dotarem from a 20 mL vial with 0 mL discarded. HISTORY: Anal carcinoma, monitor COMPARISON: 02/13/2024. FINDINGS: No significant change in a curvilinear low T2 signal anorectal lesion, extending from the 5-10 o'clock position on axial images (series 5, images 18-21). The lesion measures approximately 2.0 x 0.8 cm in maximal transverse dimensions and extends craniocaudally over a length of approximately 3 cm. Unchanged involvement of the internal and external sphincter. Stable irregular architectural distortion in the adjacent fat at the 7-8 o'clock position, at the site of a soft tissue nodule seen on the 12/29/[address], but no discrete residual soft tissue nodule. No associated diffusion restriction. Sigmoid diverticulosis. Underdistention of the urinary bladder limits evaluation but appears grossly unremarkable. Anteverted uterus with no focal lesion. The junctional zone appears ill-defined and thickened. Endometrial stripe appears normal. Normal appearance of the cervix. Minimal free fluid in the pelvis. No pelvic lymphadenopathy. No focal bony lesion. Mild degenerative changes of the hips, pubic symphysis, and visualized lumbar spine. Fatty marrow replacement in the pelvis, likely secondary to radiation therapy. Procedure Note Jay Sinha MD - 11/25/2024 PROCEDURE: Contrast enhanced MRI of the pelvis. TECHNIQUE: Multiplanar multisequence MRI of the pelvis with and withoutintravenous contrast administration. IV contrast dose: 20 mL intravenous Dotarem from a 20 mL vial with 0 mLdiscarded. HISTORY: Anal carcinoma, monitor COMPARISON: 02/13/2024. FINDINGS: No significant change in a curvilinear low T2 signal anorectal lesion,extending from the 5-10 o'clock position on axial images (series 5, [id number]). The lesion measures approximately 2.0 x 0.8 cm in maximaltransverse dimensions and extends craniocaudally over a length ofapproximately 3 cm. Unchanged involvement of the internal and externalsphincter. Stable irregular architectural distortion in the adjacent fatat the 7-8 o'clock position, at the site of a soft tissue nodule seen onthe 12/29/[address], but no discrete residual soft tissue nodule.No associated diffusion restriction. Sigmoid diverticulosis. Underdistention of the urinary bladder limits evaluation but appearsgrossly unremarkable. Anteverted uterus with no focal lesion. The junctional zone appearsill-defined and thickened. Endometrial stripe appears normal. Normalappearance of the cervix. Minimal free fluid in the pelvis. No pelvic lymphadenopathy. No focal bony lesion. Mild degenerative changes of the hips, pubicsymphysis, and visualized lumbar spine. Fatty marrow replacement in thepelvis, likely secondary to radiation therapy. IMPRESSION: Stable curvilinear anorectal lesion, correlating with a site of treatedneoplastic disease. -------- FINAL REPORT -------- Dictated By: Jya Sinha Dictated Date: 11/25/2024 13:39 ET Assigned Physician: Jay Sinha Reviewed and Electronically Signed By: Jay Sinha Signed Date: 11/25/2024 15:45 ET Workstation ID: [id number] Transcribed By: Self Edit Transcribed Date: 11/25/2024 13:39 ET us John Barillas MD IMG MRI PROCEDURES Final Re sult * MG Mammo Digital Screening w Juan bilat (10/05/2024 9:06 AM EST) Anatomical Region Laterality Modality Breast Bilateral Mammography 10/07/2024 4:37 PM EST Impressions 10/07/2024 4:40 PM EST 1. No mammographic evidence of malignancy 2. Scattered fibroglandular tissue BI-RADS CATEGORY: 2 - BENIGN RECOMMENDATION: Screening bilateral mammogram is recommended in 1 year. Mammo Location: [facility], [address] [place] [address], [id number], . -------- FINAL REPORT -------- Dictated By: Tamela Sutton Dictated Date: 10/07/2024 16:37 ET Assigned Physician: Tamela Sutton Reviewed and Electronically Signed By: Tamela Sutton Signed Date: 10/07/2024 16:40 ET Workstation ID: [id number] Transcribed By: Self Edit Transcribed Date: 10/07/2024 16:37 ET Narrative 10/07/2024 4:40 PM EST A BILATERAL DIGITAL 3D SCREENING MAMMOGRAPHY HISTORY: Routine screening. Family history of breast cancer COMPARISON: Multiple priors dating back to 05/25/2020 Technique: Bilateral full field digital mammography (3D) was performed using standard CC and MLO projections CAD was used to evaluate this mammogram. FINDINGS: Right: No suspicious masses, groups of microcalcification or areas of architectural distortion identified. Stable typically benign parenchymal asymmetries. Left: No suspicious masses, groups of microcalcification or areas of architectural distortion identified. Stable typically benign parenchymal asymmetries. BREAST DENSITY: B - There are scattered areas of fibroglandular density. Procedure Note Tamela Sutton MD - 10/07/2024 A BILATERAL DIGITAL 3D SCREENING MAMMOGRAPHY HISTORY: Routine screening. Family history of breast cancer COMPARISON: Multiple priors dating back to 05/25/2020 Technique: Bilateral full field digital mammography (3D) was performedusing standard CC and MLO projections CAD was used to evaluate this mammogram. FINDINGS: Right: No suspicious masses, groups of microcalcification or areas ofarchitectural distortion identified. Stable typically benign parenchymalasymmetries. Left: No suspicious masses, groups of microcalcification or areas ofarchitectural distortion identified. Stable typically benign parenchymalasymmetries. BREAST DENSITY: B - There are scattered areas of fibroglandular density. IMPRESSION: 1. No mammographic evidence of malignancy 2. Scattered fibroglandular tissue BI-RADS CATEGORY: 2 - BENIGN RECOMMENDATION: Screening bilateral mammogram is recommended in 1 year. Mammo Location: [facility], [address] [place] [address], [id number], . -------- FINAL REPORT -------- Dictated By: Tamela Sutton Dictated Date: 10/07/2024 16:37 ET Assigned Physician: Tamela Sutton Reviewed and Electronically Signed By: Tamela Sutton Signed Date: 10/07/2024 16:40 ET Workstation ID: [id number] Transcribed By: Self Edit Transcribed Date: 10/07/2024 16:37 ET us Milton Rush MD IM BI PROCEDURES Final Result * (ABNORMAL) Microalbumin creatinine urine ratio (06/24/2024 9:17 AM EST) Creatinine, Urine 333.0 mg/dL LAB CHEMISTRY METHOD 06/24/2024 10:58 AM EST [facility] Microalb, Ur 53.0(H) 0.0 - 29.0 mg/L LAB CHEMISTRY METHOD 06/24/2024 10:58 AM EST [facility] Microalb/Crea t Ratio 16 <30 mg/g creat LAB CHEMISTRY METHOD 06/24/2024 10:58 AM EST [facility] Urine Urine specimen obtained by clean catch procedure / Unknown Non-blood Collection / Unknown 06/24/2024 9:17 AM EST 06/24/2024 9:17 AM EST Milton Rush MD LAB URINE ORDERABLES Final [facility] [address] [place] [address], * Diabetes Foot Exam (12/15/2023) Pathologist [facility] Diabetes: Annual Foot Exam abstracted Historical Provider HEALTH MAINTENANCE Final Result * Colonoscopy (09/21/2023) [facility] Colonoscopy no interpretation , abstracted Anatomical Region Laterality Modality Other Historical Provider HEALTH MAINTENANCE Final Result * Cervical Cancer Screening: HPV (12/19/2022) [facility] Cervical Cancer Screening: HPV no interpretation , abstracted Historical Provider HEALTH MAINTENANCE Final Result * Pap smear (12/19/2022) 12/19/2022 Narrative HISTORICAL TESTING LAB RESULTING AGENCY - 12/26/2022 7:40 AM EDT [id number] THINPREP PAP, IMAGED: NEGATIVE FOR SQUAMOUS INTRAEPITHELIAL LESION AND MALIGNANCY . ZEKE GONZALEZ(ASCP) (CASE ELECTRONICALLY SIGNED 12 25 2022) RESULT OF APTIMA HIGH RISK HPV ASSAY: HIGH RISK HPV: NEGATIVE (SEROTYPES 16,18,31,33,35,39,45,51,52,56,58,59,66,68) COMPLETED ON 2022-12-20 ADEQUACY: SATISFACTORY ENDOCERVICAL/TRANSFORMATION ZONE COMPONENT PRESENT. SOURCE: THINPREP PAP HPV ANY DX: REFLEX 16 AND 18, CERVICAL, IMAGED CLINICAL INFORMATION: HPV ANY DIAGNOSIS. MENOPAUSE, PAP HX NEGATIVE, LMP 08/21/12, [Z01.419] Maria E Olmos DO LAB CYTOLOGY ORDERABLES Final Result HISTORICAL TESTING LAB RESULTING AGENCY * Hepatitis C Screening (01/08/2013) Hepatitis C Screening abstracted Historical Provider HEALTH MAINTENANCE Final Result from Last 3 Months or Most Recently Relevant to Health Maintenance Insurance [facility] Care Teams Operations Research Engineer Relationship Specialty Start Date End Date Milton Rush MD [address] [place] [id number] PCP - General Internal Medicine 02/11/20
--- OUTSIDE RECORDS SUMMARY | 2025-02-05 08:36 | XMS_ITS | Clinical Summary ---
Author Organization [facility] Address [address] [place] [address] Care Team Providers Care Padding Machine Operator Name Role Phone Milton Rush MD Primary Care Provider [phone] Allergies Active Allergy Reactions Criticality Noted Date Comments Ciprofloxacin 12/29/2011 Other reaction(s): Rash/Dermatitis Erythromycin Nausea And Vomiting High 07/06/2005 Lactose Diarrhea 07/05/2018 Medications Medication Sig Dispensed Refills Start Date End Date Status albuterol 108 (90 Base) MCG/ACT inhaler Inhale 1 puff into the lungs. 0 07/13/2022 Active amLODIPine (NORVASC) tablet 10 mg Take 1 tablet (10 mg total) by mouth daily. 0 08/26/2022 Active atorvastatin (LIPITOR) tablet 20 mg Take 1 tablet (20 mg total) by mouth daily. 0 08/26/2022 Active EPINEPHrine 0.3 MG/0.3ML SOAJ INJECT SINGLE DOSE NEEDED 0 11/01/2022 Active fluticasone (Flovent HFA) 110 MCG/ACT inhaler Take 2 inhalations by mouth 2 (two) times a day. 0 03/23/2022 Active losartan (COZAAR) tablet 50 mg Take 1 tablet (50 mg total) by mouth daily. 0 08/26/2022 Active ondansetron (ZOFRAN) 8 MG tablet Take 1 tablet (8 mg total) by mouth every 8 (eight) hours as needed for nausea. 20 tablet 3 01/16/2023 Active Additional Information Patient not taking.Reported on 12/05/2023 insulin glargine (LANTUS) injection 100 units/mL Inject under the skin every night at bedtime. 0 Active insulin lispro (HumaLOG) injection 100 units/mL Inject under the skin 3 (three) times a day before meals. 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 Social History Tobacco Use Types Packs/Day Years Used Date Smoking Tobacco: Never Smokeless Tobacco: Never Tobacco Cessation:Counseling Given: Not Answered Alcohol Use Standard Drinks/Week Comments Yes 0 (1 standard drink = 0.6 oz pur e alcohol) 1 or 2 times a year Sex and Gender Information Value Date Recorded Sex Assigned at Female 02/13/2023 12:08 PM EDT Gender Identity Female 02/13/2023 12:08 PM EDT Sexual Orientation Straight 02/13/2023 12 :08 PM EDT Job Start Date Occupation Industry Not on file Not on file Not on file Last Filed Vital Signs Vital Sign Reading Time Taken Comments Blood Pressure 130/75 12/05/2023 9:05 AM EDT Pulse 92 12/05/2023 9:05 AM EDT Temperature 36.4 C (97.6 F) 12/05/2023 9:05 AM EDT Respiratory Rate 18 02/13/2023 11:47 AM EDT Oxygen Saturation 100% 12/05/2023 9:05 AM EDT Inhaled Oxygen Concentration - - Weight 94.8 kg (209 lb) 12/05/2023 9:05 AM EDT Height 167.6 cm (5' 6 ) 12/05/2023 9:05 AM EDT Body Mass Index 33.73 12/05/2023 9:05 AM EDT Plan of Treatment Health Maintenance Due Date Last Done Comments Hepatitis C Screening 1960 Depression Screening 1972 BMI Counseling 1978 Preventative Health Evaluation 1978 Shingrix-Zoster Vaccine (1 of 2) 1979 Cervical Cancer Screening (Pap Smear) 1981 Colon Cancer Screening (Colonoscopy) 2005 Breast Cancer Screening (Mammogram) 2010 Pneumococcal Vaccine (2 of 2 - PCV) 05/27/2015 05/27/2014 Pneumococcal Vaccine (2 of 2 - PCV) 05/27/2015 05/27/2014 DTap / Tdap / Td (2 - Td or Tdap) 02/19/2018 02/20/2008 COVID-19 Vaccine (2 - Pfizer risk series) 07/16/2022 06/25/2022 Influenza Vaccine (Season Ended) 2025 06/05/2019, 08/17/2018, 08/05/2015, Additional history exists RSV Adult > 60+ Yrs or (1 - 1-dose 75+ series) 2035 Hepatitis B Vaccines Aged Out No long er eligible based on patient's age to complete this topic RSV Ped < 20 months Aged Out No longe r eligible based on patient's age to complete this topic Care Teams Padding Machine Operator Relationship Specialty Start Date End Date Milton Rush MD PCP - General Internal Medicine 12/02/22
--- NOTE | 2025-02-05 08:40 | MHC.OFFVIS ---
Intake Visit Reasons: fu after AMB EEG Allergies erythromycin base (From ERYTHROCIN) Allergy (Unknown, Unverified 04/23/20 19:51) UNKNOWN HPI Comments Details: 64 y/o woman with DM, rectal cancer treated with chemo and radiation in 2022, h/o chronic inflammatory demyelinating polyneuropathy is here for episodes of dizziness.she has been having brief episodes of blurred vision like her eyes were moving or jumping.? Each episode lasting for a second or a few seconds.? She did not feel confused or unsteady with it.? There was no pain or headache.? There was no known trigger.? [facility] Medical History (Updated 02/05/25 @ 09:04 by Mark Santillan MD) Kidney stones Rectal cancer Hypertension Partial seizure disorder BRENNA (obstructive sleep apnea) Mild cognitive impairment CIDP (chronic inflammatory demyelinating polyneuropathy) Gait disorder Diabetes mellitus Peripheral neuropathy Family History (Updated 02/04/25 @ 15:28 by Rachel White MA) Mother Diabetes mellitus CAD (coronary artery disease) COPD (chronic obstructive pulmonary disease) CHF (congestive heart failure) Physical Exam Neuro Other: Mental Status: Alert with normal orientation and attention. Normal spontaneous speech, fluency, and comprehension. No obvious issues with mood and memory. Affect is appropriate. Cranial Nerves: CN II: Visual dominguez full to confrontation, visual acuity intact. CN III, IV, : Pupils equal, round, reactive to light and accommodation. Extraocular movements are normal. CN V: Facial sensation is normal. CN VII: Facial movements symmetrical. CN VIII: Hearing intact to bedside conversation is normal. Motor: Bulk and tone normal in all extremities. No significant muscle weakness in arms and legs. No drift. Gait and Station: No obvious gait abnormality. No ataxia or instability. Sensory: Intact to light touch, pinprick, and vibration. Romberg is negative. Extrapyramidal: Full facial expressions and blinking. No rigidity. Movements are appropriate with no tremor or abnormality. Speech: Normal; no dysarthria or tremor. Assessment & Plan Assessment & Plan (1) Partial seizure disorder: Code(s): G40.109 - Localization-related (focal) (partial) symptomatic epilepsy and epileptic syndromes with simple partial seizures, not intractable, without status epilepticus Category: Medical Plan She was educated but her diagnosis and was advised to take the medicine to prevent any further spells especially now that she was driving. So far she did not have an episode where she would lose her mind or get confused but episodes now then were still happening. After discussing risks and benefit of medicine levetiracetam 250 mg twice a day was prescribed and side effects were discussed. Medications: New levetiracetam 250 mg PO BID 60 tabs 2RF Coding Level of Care Code Tele New Pt Level 4 (66044) Diagnoses Partial seizure disorder G40.109
== END 2025-02-05 09:03 | disposition home or self-care (01) ==
LOC: HO.HSM 08:32
PROVIDERS: PCP Internal Medicine Endocrinology, Diabetes & Metabolism; Visit Provider Psychiatry & Neurology Neurology
DX: G40.109 Localization-related (focal) (partial) symptomatic epilepsy and epileptic syndromes with simple partial seizures, not intractable, without status epilepticus (principal)
CPT/HCPCS: 99204

== ENCOUNTER → 2025-06-20 13:41 | Outpatient (BNV) | payer BC, SELFPAY | PROVIDERS: PCP Internal Medicine; Visit Provider Radiology Diagnostic Radiology | DX: G40.109 Localization-related (focal) (partial) symptomatic epilepsy and epileptic syndromes with simple partial seizures, not intractable, without status epilepticus (principal) | CPT/HCPCS: 70553 ==

== ENCOUNTER 2025-06-20 13:42 | Outpatient (REF) | payer BC, SELFPAY ==
--- OUTSIDE RECORDS SUMMARY | 2025-06-17 13:30 | XMS_ITS | Encounter Summary ---
Author Organization [facility] Address [address] [place] [address] Care Team Providers Care Java Web Developer Name Role Phone Milton Rush MD Primary Care Provider [phone] Reason for Visit * Reason Comments Rectal Bleeding Encounter Details Date Type Department Care Team (Late st Contact Info) Description 06/17/2025 1:30 PM EST Office Visit Adult Medicine [facility] [address] [place] [address] Lianna Segal, SCIENTIFIC RESEARCH MANAGER [address] [place], [place] Bleeding (Primary Dx) Social History Tobacco Use Types Packs/Day Years Used Date Smoking Tobacco: Former Cigarettes 0 Q uit: 08/07/1976 Smokeless Tobacco: Never Tobacco [...] care for your loved ones. For example, child care team lead or elderly care for an older adult? [...] Date Recorded What is your living situation? Unrecognized valu e 06/17/2024 Interpersonal Safety Answer Date Record ed Physical Abuse Unrecognized value 01/17/2025 Verbal Abuse Unrecognized value 01/17/2025 Comments No Sex and Gender Information Value Date Recorded Sex Assigned at Not on file Legal Sex Female 11:56 AM EST Gender Identity Not on file Sexual Orientation Not on file documented as of this encounter Last Filed Vital Signs Vital Sign Reading Time Taken Comments Blood Pressure 85/61 06/17/2025 1:20 PM EST Pulse 92 06/17/2025 1:20 PM EST Temperature 36.4 C (97.5 F) 06/17/2025 1:20 PM EST Respiratory Rate 15 06/17/2025 1:20 PM EST Oxygen Saturation 97% 06/17/2025 1:20 PM EST Inhaled Oxygen Concentration - - Weight 94.2 kg (207 lb 11.2 oz) 06/17/2025 1:20 PM EST Height 168.9 cm (5' 6.5 ) 06/17/2025 1:20 PM EST Body Mass Index 33.02 06/17/2025 1:20 PM EST documented in this encounter Progress Notes * Lianna Segal NP - 06/17/2025 1:30 PM EST PATIENT'S PCP: Milton Rush MD LAST VISIT IN THIS DEPARTMENT: 06/12/2025 I have obtained verbal consent from Elsa Rodriguez prior to the recording. I have advised Elsa Rodriguez that she may refuse the recording and require the recording to be turned off at any time during this encounter. Elsa Rodriguez is a 64 y.o. (: 1960) female who presents today for: Chief Complaint Patient presents with Rectal Bleeding SUBJECTIVE History of Present Illness The patient presents for evaluation of blood in the rectum. She underwent a rectal resection on 03/06/2025, during which a flap was placed in the buttock area.Postoperatively, she noticed a small amount of bright red blood, an occurrence that had not been previously experienced. Despite daily monitoring, no further bleeding has been observed. A family member who provided care post-surgery also reported no significant changes. She has been cautious in heractivities, including walking and washing the area, and has been using a donut-shaped cushion to alleviate pressure on the buttock. She has recently resumed part-time work, which involves increased sitting and bending, leading to discomfort and tenderness in the area. She has an upcoming appointment with gastroenterology on 06/26/2025. 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 PAST SURGICAL HISTORY: Rectal resection on 03/06/2025 Review Of System See HPI PAST MEDICAL HISTORY: Patient Active Problem List Diagnosis Date Noted Family history of MEN (multiple endocrine neoplasia) 11/18/2024 Mild intermittent asthma 09/26/2024 Type 2 diabetes mellitus ([facility] V24, [facility] V28) 09/26/2024 Anal cancer ([facility] V24, [facility] V28) 01/03/2024 Decreased sensation of foot 12/15/2023 Cancer of anorectal junction ([facility] V24, [facility] V28) 01/04/2023 High cholesterol 10/06/2021 Severe obesity (BMI 35.0-39.9) with comorbidity ([facility] V24, [facility] V28) 10/12/2020 Type II diabetes mellitus with renal manifestations ([facility] V24, [facility] V28) 10/12/2020 Aortic dilatation ([facility] V24) 05/22/2020 PLMD (periodic limb movement disorder) 03/05/2020 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 ([facility] V24) 01/09/2020 Type II diabetes mellitus with neurological manifestations ([facility] V24, [facility] V28) 08/14/2019 BRENNA (obstructive sleep apnea) 10/22/2013 Microalbuminuria 12/07/2012 Postmenopausal bleeding 10/03/2012 Iron metabolism disorder 02/26/2009 Acid reflux disease 02/05/2009 Nephrolithiasis 08/27/2008 Hyperparathyroidism ([facility] V24) 02/20/2008 Allergic rhinitis 07/06/2005 Asthma 07/06/2005 Chronic sinusitis 07/06/2005 Hypertension 07/06/2005 Irritable bowel syndrome with diarrhea 07/06/2005 Surgical History[1] SOCIAL HISTORY: Social History Tobacco Use Smoking status: Former Current packs/day: 0.00 Types: Cigarettes Quit date: 08/07/1976 Years since quittin.8 Smokeless tobacco: Never Substance Use Topics Alcohol use: Yes FAMILY HISTORY: Family History[2] Family Status Relation Name Status Mother Alive Father Alive Sister (Not Specified) Sister Alive x1 Daughter (Not Specified) Daughter (Not Specified) Daughter Alive x2 MGM MGF PGM PGF Brother (Not Specified) Brother (Not Specified) Brother Alive x1 Father's mariah p. aunt No partnership data on file OBJECTIVES Vitals: 06/17/25 1320 BP: 85/61 Pulse: 92 Resp: 15 Temp: 36.4 ??C (97.5 ??F) TempSrc: Oral SpO2: 97% Weight: 94.2 kg (207 lb 11.2 oz) Height: 1.689 m (66.5 ) BP Readings from Last 5 Encounters: 06/17/25 85/61 05/20/25 125/76 01/31/25 (!) 140/83 01/29/25 130/81 01/17/25 130/81 Body mass index is 33.02 kg/m??. BMI is greater than 25.0 (above the normal range) - see Plan Wt Readings from Last 5 Encounters: 06/17/25 1320 94.2 kg (207 lb 11.2 oz) 05/20/25 0946 94.3 kg (208 lb) 01/31/25 0857 107 kg (236 lb) 01/29/25 1118 107 kg (235 lb) 01/17/25 0802 107 kg (236 lb) 01/10/25 1200 107 kg (235 lb) Allergies[3] Active Medications: Current Outpatient Medications Medication Instructions albuterol HFA (PROAIR HFA ; PROVENTIL HFA ; VENTOLIN HFA) 90 mcg/actuation inhaler USE 1 INHALATIONORALLY EVERY 6 HOURS NEEDED FOR COUGH, WHEEZING, OR SHORTNESS OF BREATH FOR UP TO 90 DAYS amLODIPine (NORVASC) 10 mg, oral, Daily ASCORBIC ACID, VITAMIN C, ORAL Take by mouth. atorvastatin (LIPITOR) 20 mg, oral, at bedtime. Baqsimi 3 mg, As needed blood sugar diagnostic (OneTouch Verio test strips) test strip USE TO CHECK BLOOD SUGAR ONCE A DAY BLOOD-GLUCOSE METER,CONTINUOUS MISC 1 kit, Every 14 days blood-glucose sensor (FreeStyle Temi 3 Plus Sensor) device change sensors every 15 days cholecalciferol (VITAMIN D-3) 50 mcg (2,000 unit) tablet 1 tablet, Daily Eliquis 5 mg, oral, Every 12 hours EPINEPHrine (EPIPEN) 0.3 mg/0.3 mL injection INJECT SINGLE DOSE NEEDED fluticasone HFA (FLOVENT HFA) 110 mcg/actuation inhaler Take 2 inhalations by mouth 2 (two) times aday. fluticasone propionate (FLONASE) 50 mcg/actuation nasal spray 2 sprays, Each Nostril, Daily, Shake gently. Before first use, prime pump. After use, clean tip and replace cap. insulin aspart (NovoLOG FlexPen) 100 unit/mL (3 mL) injection pen Three times a day before meals asdirected MAX up to 45 units day insulin glargine (Lantus Solostar U-100 Insulin) 100 unit/mL (3 mL) injection pen 20 units two times daily lancets 33 gauge misc 1 each levETIRAcetam (KEPPRA) 250 mg, 2 times daily losartan (COZAAR) 50 mg, oral, Daily multivitamin (MULTIPLE VITAMINS ORAL) 1 tablet, Daily Winsome 2nd Gen Pen Needle 32 gauge x 5/32 needle 1 each, extracorporeal, 4 times daily omeprazole (PRILOSEC) 20 mg Physical Exam Constitutional: Appearance: Normal appearance. Genitourinary: Rectum: Normal. No external hemorrhoid. Neurological: General: No focal deficit present. Mental Status: She is alert and oriented to person, place, and time. LABORATORY: CBC: No results found for: WBC , HGB , HCT , MCV , PLT Lab Results Component Value Date LDLCALC 68 12/25/2024 1. Bleeding Assessment & Plan Postoperative bleeding A small amount of bright red blood was noted from the flap on the buttock area, which occurred onceand has not recurred. The surgical site appears to be healing well with no signs of infection or complications. She has been advised to continue monitoring the area and to avoid excessive pressure or strain. She is using a donut-shaped cushion to alleviate pressure while sitting. She has an upcoming appointment with gastroenterology on 06/26/2025. Patient understands the plan and is in agreement with the plan. FOLLOW-UP: No follow-ups on file. Health Maintenance Due Topic Date Due Diabetes: Annual Retina Eye Exam Never done Zoster Vaccines (1 of 2) Never done RSV Immunization Adult Patients (1 - Risk 50-74 years 1-dose series) Never done HIV Screening Never done Diabetes: Annual Foot Exam 12/14/2024 Influenza Vaccine (1) 04/07/2025 COVID-19 Vaccine (2024- season) 2025 Pneumococcal Vaccine: 50+ Years (2 of 2 - PCV) 05/27/2025 Social Influencers of Health Screening 06/17/2025 Lianna Segal NP ADULT MEDICINE [address] I have obtained verbal consent from Elsa Rodriguez prior to the recording. I have advised Elsa Rodriguez that she may refuse the recording and require the recording to be turned off at any time during this encounter. Today's documentation was made using voice recognition software.This note may contain grammatical errors secondary to this software. [1] Past Surgical History: Procedure Laterality Date BREAST SURGERY Left PROCEDURE: OR UNLISTED PROCEDURE BREAST; COMMENT: cystectomy 03/2017 neg COLONOSCOPY 2012 PROCEDURE: HISTORICAL COLONOSCOPY; COMMENT: Normal to cecum; propofol at [facility]. COLONOSCOPY 12/09/2002 PROCEDURE: HISTORICAL COLONOSCOPY; COMMENT: Negative/incomplete to 35 cm for rectal bleeding. LITHOTRIPSY OTHER SURGICAL HISTORY PROCEDURE: OR BIOPSY OVARY UNI/BI SEPARATE PROCEDURE; COMMENT: right ovary/ cyst removed OTHER SURGICAL HISTORY PROCEDURE: CHG GI IBS IA ANTI-CDTB&ANTI-VINCULIN ANTB PLSM ALG PARATHYROIDECTOMY 2002 PROCEDURE: HISTORICAL PARATHYROIDECTOMY; COMMENT: about 15 years ago TUBAL LIGATION PROCEDURE: HISTORICAL TUBAL LIGATION [2] Family History Problem Relation Name Age of Onset Hypertension Mother fibromyalgia, CHF, Diabetes, skin cancer, sleep apnea, CKD, athritis, colon polyps Heart attack Father age 65, alive Hemochromatosis Sister homozygous C282Y Asthma Daughter Asthma Daughter Diabetes Maternal Grandfather CHF, Hypertension Hypertension Brother Hyperlipidemia Brother Breast cancer Father's side p. aunt 40 aunt [3] Allergies Allergen Reactions Erythromycin Nausea And Vomiting Cefzil [Cefprozil] Other Zithromax [Azithromycin] Other Ciprofloxacin Other reaction(s): Rash/Dermatitis Lactose Diarrhea Sulfa (Sulfonamide Antibiotics) Diarrhea Sulfamethoxazole-Trimethoprim Diarrhea unknown unknown documented in this encounter Plan of Treatment Upcoming Encounters Date Type Department Care Team (Late st Contact Info) Description 06/25/2025 1:45 PM EST Appointment Radiology Department [address] [phone] 06/26/2025 8:00 AM EST Office Visit Gastroenterology - [address] [facility] [address] [place] [phone] Zohreh Sotelo, YORDAN [address] [facility] [address] [place] [address] 06/26/2025 8:30 AM EST Clinical Support General Surgery - [place] [address] [facility] [address] [place] [phone] 07/07/2025 3:30 PM EST Office Visit Pulmonology - [place] [address] [facility] [address] [place] [address] Jose M Hall MD [address] [place] [phone] 07/25/2025 9:00 AM EST Office Visit [facility] Hematology Oncology [address] [place] [phone] Chrissy Briggs MD [address] [place] [address] 08/04/2025 8:30 AM EST Office Visit Adult Medicine [facility] - [address] [phone] Milton Rush MD [address] [place] [address] 10/11/2025 9:30 AM EST Appointment Radiology Department - [address] [phone] documented as of this encounter Visit Diagnoses Diagnosis Bleeding- Primary Unspecified hemorrhage documented in this encounter Additional Health Concerns Assessment Noted Time PHQ-9 Depression Total Score: 0 11/28/19 25 4:50 PM EDT documented as of this encounter Care Teams Java Web Developer Relationship Specialty Start Date End Date Milton Rush MD [address] [place] [address] PCP - General Internal Medicine 02/11/20 documented as of this encounter
--- OUTSIDE RECORDS SUMMARY | 2025-06-18 23:59 | XMS_ITS | Continuity of Care Document ---
Author Organization [facility] [place] [address] [facility], [address] [place] [address]- Care Team Providers Care Lighting Engineering Technician Name Role Phone Victor Manuel ROMERO MD, Milton Bob Primary Care Physician [phone] Encounter 06/11/25 - 06/18/25 [facility] [address], [address] [place] [address]- Attending Physician: Miguelina Caruso Admitting Physician: Miguelina Caruso Referring Physician: Miguelina Caruso Encounter Type: OutPatient One Time Allergies, Adverse Reactions, Alerts Substance Criticality Severity Reaction Reaction Severity Status erythromycin Active Zithromax 1 Miscellaneous Acti ve Cefzil 2 Miscellaneous Active Grass 3 Miscellaneous Active Bactrim 4 Miscellaneous Active Dust 5 Miscellaneous Active 1unknown 2unknown 3sinus issues 4unknown 5sinus issues Medications amLODIPine 10 mg oral tablet 10 mg, 1, tablet, By Mouth, Daily, Refills 0, Maintenance, 08/26/22 8:45:00 AM EST, Partial fill upon patient request if the prescription is for a schedule II opioid drug. Start Date: 08/26/22 Status: Ordered Medication Dispense Status: Completed Total Allowed Fills: 1 Fills Dispensed: 0 atorvastatin 20 mg oral tablet 1 tablet = 20 mg, By Mouth, Daily, 0 Refills, Maintenance, 08/26/22 8:45:00 AM EST, Partial fill upon patient request if the prescription is for a schedule II opioid drug. Start Date: 08/26/22 Status: Ordered Medication Dispense Status: Completed Total Allowed Fills: 1 Fills Dispensed: 0 cholestyramine 4 g/4.8 g oral powder for reconstitution = 4 Gm, By Mouth, 2 times a day, 0 Refills, Maintenance, 08/26/22 8:45:00 AM EST, Partial fill upon patient request if the prescription is for a schedule II opioid drug. Start Date: 08/26/22 Status: Ordered Medication Dispense Status: Completed Total Allowed Fills: 1 Fills Dispensed: 0 glipiZIDE 5 mg oral tablet 5 mg, 1, tablet, By Mouth, Daily, Refills 0, Maintenance, 08/26/22 8:46:00 AM EST, Partial fill uponpatient request if the prescription is for a schedule II opioid drug. Start Date: 08/26/22 Status: Ordered Medication Dispense Status: Completed Total Allowed Fills: 1 Fills Dispensed: 0 losartan 50 mg oral tablet 50 mg, 1, tablet, By Mouth, Daily, Refills 0, Maintenance, 08/26/22 8:46:00 AM EST, Partial fill upon patient request if the prescription is for a schedule II opioid drug. Start Date: 08/26/22 Status: Ordered Medication Dispense Status: Completed Total Allowed Fills: 1 Fills Dispensed: 0 omeprazole 20 mg oral delayed release tablet 1 tablet = 20 mg, By Mouth, Daily, 0 Refills, Maintenance, 08/26/22 8:46:00 AM EST, Partial fill upon patient request if the prescription is for a schedule II opioid drug. Start Date: 08/26/22 Status: Ordered Medication Dispense Status: Completed Total Allowed Fills: 1 Fills Dispensed: 0 Please obtain the following labs at any [facility] lab: Serum Calcium & albumin Please obtain the following labs at any [facility] lab: Serum Calcium & albumin, See Instructions, # 1 each, Refills 0, Tot. Refills 0, Maintenance, Obtain these labs in 1 week, 12/13/22 12:18:00 PM EDT, Supply Start Date: 12/13/22 Status: Ordered Medication Dispense Status: Completed Quantity: 1.0 Unit: each Total Allowed Fills: 1 Fills Dispensed: 0 Trulicity Pen 4.5 mg/0.5 mL subcutaneous solution = 4.5 mg, Subcutaneous Infusion, 0 Refills, Maintenance, 08/26/22 8:46:00 AM EST, Partial fill upon patient request if the prescription is for a schedule II opioid drug. Start Date: 08/26/22 Status: Ordered Medication Dispense Status: Completed Total Allowed Fills: 1 Fills Dispensed: 0 Vitamin C By Mouth, Daily, 0 Refills, Maintenance, 08/26/22 8:46:00 AM EST, Partial fill upon patient request if the prescription is for a schedule II opioid drug. Start Date: 08/26/22 Status: Ordered Medication Dispense Status: Completed Total Allowed Fills: 1 Fills Dispensed: 0 Problem List Condition Confirmation Course Effective Dates Status Health Status Informant Hypertension Confirmed Active Acid reflux disease Confirmed Active Hyperparathyroidism Confirmed Active Irritable bowel syndrome with diarrhea Confirmed Active Nephrolithiasis Confirmed Active Mild intermittent asthma Confirmed Active Severe obesity (BMI 35.0-39.9) with comorbidity Confirmed Active Type 2 diabetes mellitus Confirmed Active Results Radiology Reports * Exam Date Time Procedure Performing Provider Status 06/10/25 1:[address] Abd/Pelvis W/O + W/ IV Contrast Modified Notes: (CT Abd/Pelvis W/O + W/ IV Contrast) Reason For Exam: hematuria RESULT: CT Abd/Pelvis W/O + W/ IV Contrast CT Abd/Pelvis W/O + W/ IV Contrast THE STUDY WAS PERFORMED AT [facility] , [address] [place] [address] Reason: hematuria. History of nephrolithiasis, dysuria and gross hematuria. TECHNIQUE: Spiral CT through the abdomen and pelvis with and without IV contrast, formatted in 3 planes. Urogram protocol was used with a 10 minute delayed sequence obtained for ureteral evaluation. 100 cc of Isovue 300 100cc vials was administered intravenously. This study was performed without oral contrast. Weight-based protocol using automatic tube modulation was used to optimize exposure parameters. COMPARISON: Noncontrast CT abdomen and pelvis 11/15/2022. Renal bladder ultrasound 11/10/2023 reviewed. FINDINGS: Chief Procurement Officer View Findings, Lines and Tubes: None. Visualized Chest: Lung bases are clear. No pleural effusion. The heart is normal in size. No pericardial effusion. Diaphragm: Normal. Liver: Normal morphology and attenuation. No suspicious lesion. Gallbladder: Cholecystectomy Bile ducts: No biliary ductal dilation. Spleen: Normal. Pancreas: Marked fatty atrophy. Unchanged 6 mm soft tissue attenuation nodule in the region of the pancreatic head anteriorly (series 2, image 34), compared to 11/15/2022, likely a small peripancreatic lymph node. Adrenal glands: Right adrenal normal. There is an unchanged 6 no later nodule of the lateral limb of the left adrenal gland, measuring 7 Hounsfield units on noncontrast CT, consistent with a small lipid-rich adenoma. Kidneys and ureters: No hydronephrosis, stones, or suspicious masses. At the left upper pole calyx,there appears to be an ill-defined linear hypodensity (delayed coronal series 9, image 65), which could reflect clot or possibly a region papillary necrosis. It does not have the typical appearance of a transitional cell carcinoma. There are also tiny linear contrast filled defects at the tips of the papilla of the left lower pole (image 61) and right upper pole (image 68), questionable significance but could reflect very early changes of papillary necrosis. Normal ureters. Bladder: Normal. Decompressed, limiting assessment. Reproductive organs: Unremarkable. Stomach, small bowel, and large bowel: Stomach and small bowel normal. Left lower quadrant colostomy. Interval abdominoperineal resection. Appendix: Not seen, but no evidence of appendicitis. Peritoneum and retroperitoneum: No ascites or pneumoperitoneum. No omental or mesenteric lesions. Lymph nodes: No enlarged lymph nodes. 7 mm short axis low left para-aortic lymph node unchanged (series 2, image 56). Blood vessels: Normal. No aneurysm. No evidence of venous thrombosis. Abdominal and pelvic wall: Unremarkable. Bones: No acute abnormality. IMPRESSION: 1. No urinary tract calcification. 2. No evidence of renal mass. 3. There is an ill-defined linear hypodensity at the right upper pole calyx on the delayed imaging raising the question of clot or possibly early papillary necrosis. This does not have the typical appearance of a transitional cell lesion although this cannot be entirely excluded. There are also tiny linear contrast-filled defects at the left lower and right upper pole papillae centrally, nonspecific, but could also reflect very early papillary necrosis. This should be correlated clinically. 4. Unchanged 6 mm left adrenal nodule of low attenuation typical for an adenoma. Interval abdominoperineal resection. WSN: [id number] Ordering Physician: Miguelina Mccullough Dictated By: Troy Rubalcava MD Dictated Date/Time: 06/11/25 4:50 pm Reviewed By: Troy Rubalcava MD Signed By: Troy Rubalcava MD Signed Date/Time: 06/11/25 4:50 pm Transcribed By: OVIDIO Transcribed Date/Time: 06/11/25 4:26 pm Social History Social History Type Response Smoking Status Never (less than 100 in lifetime) entered on: 11/29/22 Sex Sex Representation Female (finding) Patient Care team information Care Team Personnel Name: Milton Rush III, MD Position: Reference Physician Member Role: PCP Address: [address] [place] [address] Telecom: Care Team Related Persons Name: PATRICE GONGORA Name: LEON JIMÉNEZ Insurance Providers Guarantor name: FATOU GONGORA [place] Plan Information #: 1 Payer: RUSTO Payer Identifier: NA Member Number: [id number] Group Number: [id number] Subscriber Identifier: [id number] Relationship to Subscriber: spouse Coverage Type: NA Coverage Verification Date: NA Telecom: NA Address:
--- OUTSIDE RECORDS SUMMARY | 2025-06-19 10:19 | XMS_ITS | Encounter Summary ---
Author Organization [facility] Address [address] [place] [address] Care Team Providers Care Child Care Associate Teacher Name Role Phone Milton Rush MD Primary Care Provider Reason for Visit * Reason Comments Follow-up Encounter Details Date Type Department Care Team (Latest Contact Info) Description 06/19/2025 10:19 AM EST Hospital Encounter [facility] Radiation Oncology [address] [place] [phone] Kristen Roe, YORDAN [address] [place] [address] Anal cancer (CMS/HCC V24, CMS/HCC V28) (Primary Dx) Social History Tobacco Use Types Packs/Day Years Used Date Smoking Tobacco: Former Cigarettes 0 Q uit: 08/07/1976 Smokeless Tobacco: Never Alcohol Use Standard Drinks/Week Comments Yes 0 [...] for your loved ones. For example, child guidance counselor or elderly care for an older adult? [...] Sign Reading Time Taken Comments Blood Pressure 126/67 06/19/2025 10:42 AM EST Pulse 85 06/19/2025 10:42 AM EST Temperature 35.8 C (96.4 F) 06/19/2025 10:42 AM EST Respiratory Rate 18 06/19/2025 10:42 AM EST Oxygen Saturation 99% 06/19/2025 10:42 AM EST Inhaled Oxygen Concentration - - Weight 95.3 kg (210 lb) 06/19/2025 10:42 AM EST Height 168.9 cm (5' 6.5 ) 06/19/2025 10:42 AM ES T Body Mass Index 33.39 06/19/2025 10:42 AM EST documented in this encounter Progress Notes * Kristen Roe NP - 06/19/2025 10:30 AM EST Images from the original note were not included. [address] [phone] RADIATION ONCOLOGY FOLLOW-UP Staff Physician: Kristen Roe NP Requesting Physician: No ref. provider found Date of Service: 06/19/2025 Accompanied by: self Diagnosis: No diagnosis found. 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 She reports she is doing okay. She had some intermittent bleeding per rectum prior. On 01/17/2025 she had a surveillance sigmoidoscopy which showed Squamous cell carcinoma, HPV-associated, with focal ulceration and acute and chronic inflammation. She unfortuantly had complications after her resection with colostomy. 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 She feels tired a lot. Her appetite has been fine. She has beenhydrating well. She still has sensitivity on her bottom especially since surgery. She uses a special pillow to sit. Has a MRI brain tomorrow and a MRI pelvis next week. She is seeing General Surgery and GI on the 06/26/2025. HPI ROS: Review of Systems Constitutional: Positive for fatigue (baseline). Negative for appetite change and unexpected weightchange. Gastrointestinal: Positive for rectal pain. Negative for nausea and vomiting. Discomfort in rectal area. Ostomy in place. Genitourinary: Positive for bladder incontinence. Negative for frequency. Feels pressure in pelvis area. Skin: Negative for itching and rash. Neurological: Negative for dizziness and headaches. Medications: Current Outpatient Medications: albuterol HFA (PROAIR HFA ; PROVENTIL HFA ; VENTOLIN HFA) 90 mcg/actuation inhaler, USE 1 INHALATION ORALLY EVERY 6 HOURS NEEDED FOR COUGH, WHEEZING, OR SHORTNESS OF BREATH FOR UP TO 90 DAYS, Disp: 18 g, Rfl: 7 amLODIPine (NORVASC) 10 mg tablet, TAKE 1 TABLET DAILY, Disp: 90 tablet, Rfl: 1 ASCORBIC ACID, VITAMIN C, ORAL, Take by mouth., Disp: , Rfl: atorvastatin (LIPITOR) 20 mg tablet, TAKE 1 TABLET AT BEDTIME, Disp: 90 tablet, Rfl: 1 blood sugar diagnostic (Aden & Anais Verio test strips) test strip, USE TO CHECK BLOOD SUGAR ONCE A DAY, Disp: , Rfl: BLOOD-GLUCOSE METER,CONTINUOUS MISC, 1 kit by Other route every 14 (fourteen) days., Disp: , Rfl: blood-glucose sensor (FreeStyle Temi 3 Plus Sensor) device, change sensors every 15 days, Disp: 6 each, Rfl: 5 cholecalciferol (VITAMIN D-3) 50 mcg (2,000 unit) tablet, Take 1 tablet (2,000 Units total) by mouth 1 (one) time each day., Disp: , Rfl: Eliquis 5 mg tablet, TAKE 1 TABLET BY MOUTH EVERY 12 HOURS, Disp: 60 tablet, Rfl: 3 EPINEPHrine (EPIPEN) 0.3 mg/0.3 mL injection, INJECT SINGLE DOSE NEEDED, Disp: , Rfl: fluticasone HFA (FLOVENT HFA) 110 mcg/actuation inhaler, Take 2 inhalations by mouth 2 (two) times a day., Disp: , Rfl: fluticasone propionate (FLONASE) 50 mcg/actuation nasal spray, Administer 2 sprays into each nostril 1 (one) time each day. Shake gently. Before first use, prime pump. After use, clean tip and replace cap., Disp: 16 g, Rfl: 5 glucagon (Baqsimi) 3 mg/actuation nasal spray, Administer 3 mg into affected nostril(s) if needed.,Disp: , Rfl: insulin aspart (NovoLOG FlexPen) 100 unit/mL (3 mL) injection pen, Three times a day before meals as directed MAX up to 45 units day, Disp: 45 mL, Rfl: 1 insulin glargine (Lantus Solostar U-100 Insulin) 100 unit/mL (3 mL) injection pen, 20 units two times daily, Disp: 45 mL, Rfl: 1 lancets 33 gauge misc, Apply 1 Lancet topically., Disp: , Rfl: levETIRAcetam (KEPPRA) 250 mg tablet, Take 1 tablet (250 mg total) by mouth 2 (two) times a day., Disp: , Rfl: losartan (COZAAR) 50 mg tablet, TAKE 1 TABLET DAILY, Disp: 90 tablet, Rfl: 1 multivitamin (MULTIPLE VITAMINS ORAL), Take 1 tablet by mouth 1 (one) time each day., Disp: , Rfl: Winsome 2nd Gen Pen Needle 32 gauge x 5/32 needle, USE DIRECTED 4 TIMES A DAY, Disp: 200 each, Rfl: 5 omeprazole (PriLOSEC) [address] capsule, Take 1 capsule (20 mg total) by mouth., Disp: , Rfl: Imported vital signs, weight Visit Vitals BP 126/67 (BP Location: Left arm, Patient Position: Sitting, BP Cuff Size: Adult) Pulse 85 Temp 35.8 ??C (96.4 ??F) (Temporal) Resp 18 Ht 1.689 m (66.5 ) Wt 95.3 kg (210 lb) SpO2 99% BMI 33.39 kg/m?? OB Status Postmenopausal Smoking Status Former BSA 2.05 m?? No data recorded Physical Exam: Physical Exam Vitals reviewed. Constitutional: Appearance: Normal appearance. HENT: Head: Normocephalic. Abdominal: General: The ostomy site is clean. There is no distension. Comments: Ostomy in place Genitourinary: Rectum: No mass. Skin: General: Skin is warm. Neurological: General: No focal deficit present. Mental Status: She is alert and oriented to person, place, and time. Mental status is at baseline. Psychiatric: Mood and Affect: Mood normal. Behavior: Behavior normal. Behavior is cooperative. Thought Content: Thought content normal. Judgment: Judgment normal. Impression: Patient overall healing well post surgical intervention. She is following with Dr. Briggs, general surgery, and GI. Has appointments upcoming. She was recently checked for a UTI and was cleared. Advised to use vaginal dilators 3 times per week to avoid vaginal fibrosis, shortening, or stenosis. She still see PACKAGING INSPECTOR per current guidelines. Plan: Follow-up in six months. Sooner if needed. Kristen Roe NP 06/19/25 11:08 AM EST documented in this encounter Plan of Treatment Upcoming Encounters Date Type Department Care Team ([facility] st Contact Info) Description 06/25/2025 1:45 PM EST Appointment Radiology Department [address] [phone] 06/26/2025 8:00 AM EST Office Visit Gastroenterology - [address] [place] [address] Zohreh Sotelo NP [address] [facility] [address] [place] [address] 06/26/2025 8:30 AM EST Clinical Support General Surgery [facility] [address] [facility] [address] [place] [phone] 07/07/2025 3:30 PM EST Office Visit Pulmonology - [place] [address] [facility] [address] [place] [address] Jose M Hall MD [address] [place] [phone] 07/25/2025 9:00 AM EST Office Visit [facility] Hematology Oncology [address] [place] [phone] Chrissy Briggs MD [address] [place] [address] 08/04/2025 8:30 AM EST Office Visit [facility] - [address] [phone] Milton Rush MD [address] [place] [address] 10/11/2025 9:30 AM EST Appointment Radiology Department - [address] [phone] documented as of this encounter Visit Diagnoses Diagnosis Anal cancer (CMS/HCC V24, CMS/HCC V28)- Primary Malignant neoplasm of anus, unspecified site documented in this encounter Additional Health Concerns Assessment Noted Time PHQ-9 Depression Total Score: 0 11/28/19 25 4:50 PM EDT documented as of this encounter Care Teams Child Care Associate Teacher Relationship Specialty Start Date End Date Milton Rush MD [address] [place] [address] PCP - General Internal Medicine 02/11/20 documented as of this encounter
--- NOTE | ~2025-06-20 | MR_ITS ---
EXAMINATION: MR BRAIN WITHOUT AND WITH CONTRAST CLINICAL INFORMATION: G 40.109. COMPARISON: January 03, 2020. TECHNIQUE: Multiplanar, multisequence MRI of the brain was obtained before and after the intravenous administration of 10.0 mL gadolinium based (Gadavist) without reported immediate complications. FINDINGS: No restricted diffusion. No abnormal enhancement within the intra-axial or the extra-axial compartment of the cranium. No acute intracranial hemorrhage, mass effect, midline shift, hydrocephalus or herniation. Villareal-white matter differentiation is normal. Bilateral, a few, scattered, nonspecific subcortical and white matter hyperintense T2 FLAIR signal foci, the most conspicuous in the left frontal lobe. Prominence of the extra-axial CSF spaces and cerebral sulci involving mostly the bifrontal lobes. No signal abnormality or enhancing lesion in the hippocampi. Flow-void signal within the main cerebral vessels is normal. Main cerebral venous sinuses are patent. Sellar/suprasellar region is normal. Craniocervical junction is intact with normal position of the cerebellar tonsils. MR/MR head/brain wo/w con IMPRESSION: No acute brain abnormality. No abnormal enhancement. Nonspecific white matter T2 FLAIR signal. Electronically signed by: Joshua Patterson MD 06/24/2025 10:20 AM MICHELLE
--- OUTSIDE RECORDS SUMMARY | 2025-06-20 20:03 | XMS_ITS | Encounter Summary ---
Author Organization [facility] Address [address] [place] [address] [place] [address] Phone Care Team Providers Care Mount Loader Name Role Phone John Barillas MD Unavailable [phone] Milton Rush MD Primary Care Provider + Cheryl Orellana MD, MSc Unavailable [phone] Henrry Patel MD Unavailable [phone] Encounter Details Date Type Department Care Team (Late st Contact Info) Description 03/06/2025 Procedure Pass [facility] Periop [address] [place] [address] Social History Tobacco Use Types Packs/Day Years Used Date Smoking Tobacco: Never Passive Smoke Exposure: Never Smokeless Tobacco: Never Alcohol Use Standard Drinks/Week Comments Yes 0 (1 standard drink = 0.6 oz pur e alcohol) rare Child or Family Care Answer Date Record ed Do you have problems with on e of the following making it difficult for you to work, study, or receive health care? No 02/03/2025 Education Answer Date Recorded Are you interested in help w ith more adult education (for example, completing high school, GED, job training, learning the [place] language, technical skills, or developing parenting skills)? No 02/03/2025 Are you concerned about learning? Not on file 02/03/2025 No 02/03/2025 Yes 02/03/2025 Food Answer Date Recorded Within the past 6 months we worried whether our food would run out before we got money to buy more. Never True 03/06/2025 Within the past 6 months the food we bought just didn't last and we didn't have enough money to get more. Never True Residential Stability Answer Date Recor ded What is your housing situation today? I have pedro luis sing 03/06/2025 How many times have you move d in the past 12 months? Zero (I did not move) 03/06/2025 Paying for Meds Answer Date Recorded Do you have trouble paying for medicines? No 03/06/2025 Paying Utility Bills Answer Date Record ed Do you have trouble paying your heating or elect ricity bill? No 03/06/2025 Transportation Answer Date Recorded Has the lack of transportati on kept you from medical appointments or from getting medications? No 03/06/2025 Digital Access Answer Date Recorded No 03/06/2025 Yes 03/06/2025 Do you have reliable internet access at home? Ye s 03/06/2025 Do you have a device (e.g., phone, tablet, computer) with a working camera? Yes 03/06/2025 Intimate Partner Violence Answer Date R ecorded Are you denied basic needs s uch as food, clothing, or medical care? No 03/06/2025 In the past 12 months have y ou been in a relationship with a person who hurts, threatens, or tries to control you? No 03/06/2025 Are you denied basic needs s uch as food, clothing, or medical care? No 03/06/2025 In the past 12 months have y ou been in a relationship with a person who hurts, threatens, or tries to control you? No 03/06/2025 Comments No Sex and Gender Information Value Date Recorded Sex Assigned at Female 02/03/2025 8:42 AM EDT Legal Sex Female 8:40 AM EDT Gender Identity Female 02/03/2025 8:42 AM EDT Sexual Orientation Straight 02/03/2025 8: 42 AM EDT documented as of this encounter Functional Status * Calculated C-SSRS Risk Score (Lifetime/Recent) Answer Date of Assessment Author No Risk Indicated 03/06/2025 11:32 PM EDT Daisy Juárez RN * [place] Suicide Severity Rating Scale (Screener/Recent Self-Report) Question Answer Date of Assessment Author 1. Wish to be (Past 1 Month) No 03/06/2025 11:32 PM EDT Daisy Paniagua RN 2. Non-Specific Active Suicidal Thoughts (Past 1 Month) No 03/06/2025 11:32 PM EDT Daisy Paniagua RN 6. Suicidal Behavior (Lifetime) No 03/06/2025 11:32 PM EDT Daisy Paniagua RN documented as of this encounter Plan of Treatment Scheduled Procedures Name Priority Associated Diagnoses Date/Ti me RECONSTRUCTION PERINEAL Anal cancer documented as of this encounter Visit Diagnoses Not on filedocumented in this encounter Care Teams Mount Loader Relationship Specialty Start Date End Date Milton Rush MD [address] [place] [address] PCP - General 02/03/25 John Barillas MD [address] [place] [address] Referring Physician General Surgery 02/03/25 Cheryl Orellana MD, MSc [address] [place] [phone] [email or web address] Colon and Rectal Surgery 02/03/25 Henrry Patel MD [address] [place] [address] [email or web address] Medical Oncology 02/03/25 documented as of this encounter Additional Source Comments The information contained in this document represents components of the legal health record. It is not the complete legal health record.[facility]
--- OUTSIDE RECORDS SUMMARY | 2025-06-20 20:03 | XMS_ITS | Encounter Summary ---
Author Organization [facility] Address [address] [place] [address] [place] [address] Phone Care Team Providers Care Electronic Commerce Specialist Name Role Phone John Barillas MD Unavailable [phone] Milton Rush MD Primary Care Provider + Cheryl Orellana MD, MSc Unavailable [phone] Henrry Patel MD Unavailable [phone] Encounter Details Date Type Department Care Team (Late st Contact Info) Description 03/25/2025 Procedure Pass [facility], Ct Scan - [address] [id number] Social History Tobacco Use Types Packs/Day Years [...] high school, GED, job training, learning the Wol[place] language, technical skills, or developing parenting skills)? No 02/03/2025 Are you concerned about learning? Not on file 02/03/2025 No 02/03/2025 Yes 02/03/2025 Food Answer Date Recorded Within the past 6 months we worried whether our food would run out before we got money to buy more. Never True 03/24/2025 Within the past 6 months the food we bought just didn't last and we didn't have enough money to get more. Never True Residential Stability Answer Date Recor ded What is your housing situation today? I have pedro luis sing 03/24/2025 How many times have you move d in the past 12 months? Zero (I did not move) 03/24/2025 Paying for Meds Answer Date Recorded Do you have trouble paying for medicines? No 03/24/2025 Paying Utility Bills Answer Date Record ed Do you have trouble paying your heating or elect ricity bill? No 03/24/2025 Transportation Answer Date Recorded Has the lack of transportati on kept you from medical appointments or from getting medications? No 03/24/2025 Digital Access Answer Date Recorded Yes 03/24/2025 No 03/24/2025 Do you have reliable internet access at home? No 03/24/2025 Do you have a device (e.g., phone, tablet, computer) with a working camera? No 03/24/2025 Intimate Partner Violence Answer Date R ecorded Are you denied basic needs s uch as food, clothing, or medical care? No 03/24/2025 In the past 12 months have y ou been in a relationship with a person who hurts, threatens, or tries to control you? No 03/24/2025 Are you denied basic needs s uch as food, clothing, or medical care? No 03/24/2025 In the past 12 months have y ou been in a relationship with a person who hurts, threatens, or tries to control you? No 03/24/2025 Comments No Sex and Gender Information Value Date Recorded Sex Assigned at Female 02/03/2025 8:42 AM EDT Legal Sex Female 8:40 AM EDT Gender Identity Female 02/03/2025 8:42 AM EDT Sexual Orientation Straight 02/03/2025 8: 42 AM EDT documented as of this encounter Plan of Treatment Scheduled Procedures Name Priority Associated Diagnoses Date/Ti me RECONSTRUCTION PERINEAL Anal cancer documented as of this encounter Visit Diagnoses Not on filedocumented in this encounter Care Teams Electronic Commerce Specialist Relationship Specialty Start Date End Date Milton Rush MD [address] [place] [phone] PCP - General 02/03/25 John Barillas MD [address] [place] [address] Referring Physician General Surgery 02/03/25 Cheryl Orellana MD, MSc [address] [place] [address] [email or web address] Colon and Rectal Surgery 02/03/25 Henrry Patel MD [address] [place] [phone] [email or web address] Medical Oncology 02/03/25 documented as of this encounter Additional Source Comments The information contained in this document represents components of the legal health record. It is not the complete legal health record.[facility]
--- OUTSIDE RECORDS SUMMARY | 2025-06-20 20:03 | XMS_ITS | Encounter Summary ---
Author Organization [facility] Address [address] [place] [address] [place] [address] Phone Care Team Providers Care Land Acquisition Manager Name Role Phone John Barillas MD Unavailable [phone] Milton Rush MD Primary Care Provider + Cheryl Orellana MD, MSc Unavailable [phone] Henrry Patel MD Unavailable [phone] Encounter Details Date Type Department Care Team (Late st Contact Info) Description 03/24/2025 Procedure Pass [facility], Ct Scan - [address] [address] Social History Tobacco Use Types Packs/Day Years [...] high school, GED, job training, learning the Chadian language, technical skills, or developing parenting skills)? [...] Date of Assessment Author No Risk Indicated 03/24/2025 1:36 AM EDT Dougie Goodman RN * [place] Suicide Severity Rating Scale (Screener/Recent Self-Report) Question Answer Date of Assessment Author 1. Wish to be (Past 1 Month) No 03/24/2025 1:36 AM EDT Dougie Goodman RN 2. Non-Specific Active Suicidal Thoughts (Past 1 Month) No 03/24/2025 1:36 AM EDT Dougie Goodman RN 6. Suicidal Behavior (Lifetime) No 03/24/2025 1:36 AM EDT Dougie Goodman RN documented as of this encounter Plan of Treatment Scheduled Procedures Name Priority Associated Diagnoses Date/Ti me RECONSTRUCTION PERINEAL Anal cancer documented as of this encounter Visit Diagnoses Not on filedocumented in this encounter Care Teams Land Acquisition Manager Relationship Specialty Start Date End Date Milton Rush MD [address] [place] [address] PCP - General 02/03/25 John Barillas MD [address] [place] [address] Referring Physician General Surgery 02/03/25 Cheryl Orellana MD, MSc [address] [place] [address] [email or web address] Colon and Rectal Surgery 02/03/25 Henrry Patel MD [address] [place] [address] [email or web address] Medical Oncology 02/03/25 documented as of this encounter Additional Source Comments The information contained in this document represents components of the legal health record. It is not the complete legal health record.[facility]
--- OUTSIDE RECORDS SUMMARY | 2025-06-20 20:03 | XMS_ITS | Encounter Summary ---
Author Organization [facility] Address [address] [place] [address] [place] [address] Phone Care Team Providers Care Career Portals Teacher Name Role Phone John Barillas MD Unavailable [phone] Milton Rush MD Primary Care Provider + Cheryl Orellana MD, MSc Unavailable [phone] Henrry Patel MD Unavailable [phone] Encounter Details Date Type Department Care Team (Late st Contact Info) Description 04/01/2025 Procedure Pass [facility], Ct Scan - [address] [address] Social History Tobacco Use Types Packs/Day Years [...] high school, GED, job training, learning the Kiswahili language, technical skills, or developing parenting skills)? [...] on filedocumented in this encounter Care Teams Career Portals Teacher Relationship Specialty Start Date End Date Milton Rush MD [address] [place] [address] PCP - General 02/03/25 John Barillas MD [address] [place] [address] Referring Physician General Surgery 02/03/25 Cheryl Orellana MD, MSc [address] [place] [phone] [email or web address] Colon and Rectal Surgery 02/03/25 Henrry Patel MD [address] [place] [phone] [email or web address] Medical Oncology 02/03/25 documented as of this encounter Additional Source Comments The information contained in this document represents components of the legal health record. It is not the complete legal health record.[facility]
--- OUTSIDE RECORDS SUMMARY | 2025-06-20 20:03 | XMS_ITS | Clinical Summary ---
Author Organization [facility] Address [address] [place] [address] Phone Care Team Providers Care Curb Setter Helper Name Role Phone Milton Rush MD Primary Care Provider [phone] Allergies Active Allergy Reactions Criticality Noted Date [...] 2 (two) times a day. 022 Active cholecalciferol (VITAMIN D-3) 50 mcg (2,000 unit) tablet Take 1 tablet (2,000 Units total) by mouth 1 (one) time each day. Active ASCORBIC ACID, VITAMIN C, ORAL Take by mouth. Active BLOOD-GLUCOSE METER,CONTINUOUS MISC 1 kit by Other route every 14 (fourteen) days. 024 Active omeprazole (PriLOSEC) [address] capsule Take 1 capsule (20 mg total) by mouth. Active multivitamin (MULTIPLE VITAMINS ORAL) Take 1 tablet by mouth 1 (one) time each day. Active lancets 33 gauge misc Apply 1 Lancet topically. 023 Active blood sugar diagnostic (OneTouch Verio test strips) test strip USE TO CHECK BLOOD SUGAR ONCE A DAY Active glucagon (Baqsimi) 3 mg/actuation nasal spray Administer 3 mg into affected nostril(s) if needed. 023 Active fluticasone propionate (FLONASE) 50 mcg/actuation nasal [...] units day 45 mL 1 025 Active insulin glargine (Lantus Solostar U-100 Insulin) 100 unit/mL (3 mL) injection penIndications:Ty pe 2 diabetes mellitus with other diabetic neurological complication (CMS/HCC V24, CMS/HCC V28) 20 units two times daily 45 mL 1 025 Active amLODIPine (NORVASC) 10 mg tablet TAKE 1 TABLET DAILY 90 tablet 1 025 Active atorvastatin (LIPITOR) 20 mg tablet TAKE 1 TABLET AT BEDTIME 90 tablet 1 025 Active Eliquis 5 mg tablet TAKE 1 TABLET BY MOUTH EVERY 12 HOURS 60 tablet 3 025 Active Winsome 2nd Gen Pen Needle 32 gauge x needleIndications :Type 2 diabetes mellitus with other diabetic neurological complication ([facility] V24, [facility] V28) USE DIRECTED 4 TIMES A DAY 200 each 5 025 Active levETIRAcetam (KEPPRA) 250 mg tablet Take 1 tablet (250 mg total) by mouth 2 (two) times a day. 025 Active blood-glucose sensor (FreeStyle Temi 3 Plus Sensor) deviceIndications :Type 2 diabetes mellitus with other diabetic neurological complication ([facility] V24, [facility] V28) change sensors every 15 days 6 each 5 025 Active albuterol HFA (PROAIR HFA ; PROVENTIL HFA ; VENTOLIN HFA) 90 mcg/actuation inhaler USE 1 INHALATION ORALLY EVERY 6 HOURS NEEDED FOR COUGH, WHEEZING, OR SHORTNESS OF BREATH FOR UP TO 90 DAYS 18 g 7 025 Active albuterol HFA (PROAIR HFA ; PROVENTIL HFA ; VENTOLIN HFA) 90 mcg/actuation inhaler Inhale 1 puff by mouth every 6 (six) hours if needed for wheezing or shortness of breath. 024 2024 Discontinued Active Problems Problem Noted Date Diagnosed Date Family history of MEN (multiple endocrine neopla quentin) 11/18/2024 Mild intermittent asthma 09/26/2024 Type 2 diabetes mellitus ([facility] V24, [facility] V 28) 09/26/2024 Anal cancer ([facility] V24, [facility] V28) 4 Decreased sensation of foot 12/15/2023 Cancer of anorectal junction ([facility] V24, [facility] V28) 01/04/2023 High cholesterol 10/06/2021 Severe obesity (BMI 35.0-39. 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 Hernandez - peripheral neuropathy BRENNA (obstructive sleep apnea) 10/22/2013 Overview (05/13/2024): NOT TREATED (OCTOBER 2020) [facility] Polysomnogram: Date 10/04/2013; Wt 225#; [...] ureter stone 07/16, hydronephrosis and hydroureter Hyperparathyroidism ([facility] V24) 02/20/2008 Overview (05/13/2024): Parathyroidectomy 03/19/2004, parathyroid hyperplasia, right upper, right lower, and left upper parathyroid resected. Allergic rhinitis 07/06/2005 Asthma 07/06/2005 Chronic sinusitis 07/06/2005 Hypertension 07/06/2005 Irritable bowel syndrome with diarrhea 5 Encounters Date Type Department Care Team Description 06/19/2025 10:19 AM EST Hospital Encounter [facility] Radiation Oncology [address] [place] [phone] Kristen Roe NP Anal cancer (CMS/HCC V24, CMS/HCC V28) (Primary Dx) 06/19/2025 Telephone Adult Medicine [address] [phone] Jitendra De [place], [place] 06/17/2025 1:30 PM EST Office Visit Adult [address] [phone] Lianna Segal NP Bleeding (Primary Dx) 06/12/2025 Telephone Adult [address] [phone] Milton Rush MD 06/10/2025 Nurse Triage [address] [phone] Milton Rush MD 06/09/2025 Telephone Adult [address] [phone] Jitendra [place], [place] 06/05/2025 1:50 PM EDT Lab Draw [address] Gross hematuria (Primary Dx) 06/03/2025 Lab Requisition [facility] - Main Lab [address] [facility] [place] [phone] Miguelina Mccullough PA Gross hematuria 05/28/2025 Telephone [facility] Hematology Oncology [address] [place] [phone] Chrissy Briggs MD 05/26/2025 Billing Patient Not Present Adult Medicine [address] [phone] Milton Rush MD 05/20/2025 9:45 AM EDT Office Visit [facility] Hematology Oncology [address] [place] [phone] Chrissy Briggs MD Anal cancer (CMS/HCC V24, CMS/HCC V28) (Primary Dx) 05/20/2025 Telephone [facility] Hematology Oncology [address] [place] [phone] Jessica Nuñez DC 05/16/2025 Lab Requisition [facility] - Main Lab [address] [facility] [place] [phone] Miguelina Mccullough PA Urinary tract infection, site not specified; Dysuria 05/02/2025 Telephone Adult Medicine [address] [phone] Milton Rush MD 05/02/2025 Telephone Adult Medicine [address] [phone] Milton Rush MD 04/30/2025 Telephone Adult Medicine [address] [phone] Milton Rush MD 04/30/2025 Telephone Adult Medicine [address] [phone] Milton Rush MD 04/30/2025 Telephone Adult Medicine [address] [phone] Milton Rush MD 04/28/2025 Telephone Adult Medicine [address] [phone] Milton Rush MD 04/22/2025 Telephone Adult Medicine [address] [phone] Milton Rush MD 04/21/2025 Telephone Adult Medicine [address] [phone] Milton Rush MD 04/18/2025 Telephone Adult Medicine [address] [phone] Milton Rush MD 04/14/[address] [phone] Chetan Pulido MD 04/08/2025 Telephone Adult [address] [phone] Milton Rush MD 04/04/2025 Telephone Adult [address] [phone] Milton Rush MD 04/02/2025 9:00 AM EDT Telemedicine [address] [phone] Chetan Pulido MD Type 2 diabetes mellitus with other diabetic neurological complication (CMS/HCC V24, CMS/HCC V28) (Primary Dx); Type II diabetes mellitus with neurological manifestations (CMS/HCC V24, CMS/HCC V28) 04/02/[address] [phone] Chetan Pulido MD 04/01/2025 [place] Adult [address] [phone] Isabela Mckinney RN 03/31/2025 Telephone Adult Medicine [address] [phone] Milton Rush MD from Last 3 Months Immunizations Immunization Administration Dates Next Due H1N1 Inj Preservative [...] Date Site/Laterality Comments OTHER SURGICAL HISTORY PROCEDURE: [place] BIOPSY OVARY UNI/BI SEPARATE PROCEDURE; COMMENT: right ovary/ cyst removed TUBAL LIGATION PROCEDURE: HISTORICAL TUBAL LIGATION PARATHYROIDECTOMY 2002 PROCEDURE: HISTORICAL PARATHYROIDECTOMY; COMMENT: about 15 years ago COLONOSCOPY 2012 PROCEDURE: HISTORICAL COLONOSCOPY; COMMENT: Normal to cecum; propofol at [facility]. COLONOSCOPY 12/09/2002 PROCEDURE: HISTORICAL COLONOSCOPY; COMMENT: Negative/incomplete to 35 cm for rectal bleeding. BREAST SURGERY Left PROCEDURE: [place] UNLISTED PROCEDURE BREAST; COMMENT: cystectomy 03/2017 neg OTHER SURGICAL HISTORY PROCEDURE: CHG GI IBS IA ANTI-CDTB&ANTI-VINCULIN ANTB PLSM ALG LITHOTRIPSY Medical History Medical History Date Comments Irritable bowel syndrome 07/06/2005 DX:Irri table bowel syndrome Hyperparathyroidism (CMS/HCC V24) 02/20/2008 DX:Hyperparathyroidism (HCC); COMMENT: Parathyroidectomy 03/19/2004, parathyroid hyperplasia Nephrolithiasis 08/27/2008 [...] Diabetes 1.5, managed as typ e 2 ([facility] V24, [facility] V28) DX:Diabetes 1.5, managed as type 2 (HCC) Rectal bleeding DX:Rectal bleedi ng Rectal cancer ([facility] V24, [facility] V28) Pulmonary embolus ([facility] V 24, [facility] V28) Family History Medical History Relation Name [...] for your loved ones. For example, child adolescent care or elderly care for an older adult? [...] Mass Index 33.39 06/19/2025 10:42 AM EST Plan of Treatment Upcoming Encounters Date Type Department Care Team (Late st Contact Info) Description 06/25/2025 1:45 PM EST Appointment Radiology Department - [address] [phone] 06/26/2025 8:00 AM EST Office Visit Gastroenterology - [address] [place] [phone] Zohreh Sotelo, YORDAN [facility] [address] [place] [address] 06/26/2025 8:30 AM EST Clinical Support General Surgery - [place] [facility] [address] [place] [phone] 07/07/2025 3:30 PM EST Office Visit Pulmonology - [place] [facility] [address] [place] [phone] Jose M Hall MD [address] [place] [phone] 07/25/2025 9:00 AM EST Office Visit [facility] Hematology Oncology [address] [place] [phone] Chrissy Briggs MD [address] [place] [address] 08/04/2025 8:30 AM EST Office Visit Adult Medicine [place] - [address] [phone] Milton Rush MD [address] [place] [address] 10/11/2025 9:30 AM EST Appointment Radiology Department - [address] [phone] Health Maintenance Due Date Last Done Comments Diabetes: Annual Retina Eye Exam 1970 Zoster Vaccines (1 of 2) 1979 RSV Immunization Adult Patients (1 - Risk 50-74 years 1-dose series) 2010 HIV Screening 07/16/2022 Diabetes: Annual Foot Exam 12/14/2024 12/15/2023 COVID-19 Vaccine ( season) 2025 06/25/2022, 05/14/2021, 11/08/2020, Additional history exists Influenza Vaccine (#1) 2025 9, 08/17/2018, 08/05/2015, Additional history exists Pneumococcal Vaccine: 50+ Years (2 of 2 - PCV) 05/27/2025 05/27/2024, 05/27/2014 Social Influencers of Health Screening 06/17/2025 06/17/2024 Diabetes: Annual Urine Albumin-Creatinine Ratio (uACR) 06/24/2025 06/24/2024, 12/15/2023 Diabetes: Blood Sugar Control Test (HGBA1C) 06/27/2025 12/25/2024, 06/24/2024, 12/15/2023, Additional history exists Cervical Cancer Screening: Pap Smear 12/19/2025 12/19/2022, 12/19/2022, 12/19/2022, Additional history exists Diabetes: Annual GFR (Glomerular Filtration Rate) 06/05/2026 06/05/2025, 04/01/2025, 03/31/2025, Additional history exists Hypertension/CHF/CAD Annual BMP Blood Test 06/05/2026 06/05/2025, 04/01/2025, 03/31/2025, Additional history exists Colorectal Cancer Screening: Colonoscopy 09/21/2026 09/21/2023 Breast Cancer Screening 10/05/2026 10/06/19, 09/09/2023, 08/27/2022, Additional history exists Cervical Cancer Screening: HPV 12/20/2027 12/19/2022 DTaP,Tdap,and Td Vaccines (3 - Td or Tdap) 04/05/2028 04/05/2018, 02/20/2008 Cholesterol Screening (Lipid Panel) 12/25/2029 12/25/2024, 06/24/2024, 12/15/2023, Additional history exists Hepatitis C Screening Completed 01/08/2013 Depression Screening Completed 11/27/2024 HIB Vaccines Aged Out No longer eligi [...] Procedure Name Priority Date/Time Associated Diagnosis Comments BUN Routine 06/05/2025 1:52 PM EDT Gross hematuria CREATININE, SERUM Routine 06/05/2025 1:5 2 PM EDT Gross hematuria CULTURE URINE Routine 05/30/2025 10:51 AM EDT Increased urinary frequency CULTURE URINE Routine 05/22/2025 10:43 AM EDT Anal cancer (CMS/HCC V24, CMS/HCC V28) NON-GYNECOLOGIC CYTOLOGY Routine 05/16/2025 12:00 AM EDT Gross hematuria CULTURE URINE Routine 05/16/2025 12:00 AM EDT Urinary tract infection, site not specified Dysuria URINALYSIS WITH REFLEX MICROSCOPIC Routine 04/25/2025 2:36 PM EDT Hematuria, unspecified type URINALYSIS WITH REFLEX MICROSCOPIC Routine 04/25/2025 2:36 PM EDT Hematuria, unspecified type CULTURE URINE Routine 04/25/2025 2:36 PM EDT Hematuria, unspecified type EXTERNAL CLINICAL LAB 04/02/2025 EXTERNAL CLINICAL LAB 04/01/2025 EXTERNAL CLINICAL LAB 03/31/2025 EXTERNAL CLINICAL LAB 03/30/2025 EXTERNAL CLINICAL LAB 03/29/2025 EXTERNAL CLINICAL LAB 03/29/2025 EXTERNAL CLINICAL LAB 03/28/2025 EXTERNAL CLINICAL LAB 03/27/2025 EXTERNAL CLINICAL LAB 03/27/2025 EXTERNAL CLINICAL LAB 03/26/2025 EXTERNAL CLINICAL LAB 03/26/2025 EXTERNAL CLINICAL LAB 03/25/2025 EXTERNAL CLINICAL LAB 03/25/2025 EXTERNAL CLINICAL LAB 03/25/2025 EXTERNAL CLINICAL LAB 03/24/2025 EXTERNAL CLINICAL LAB 03/24/2025 EXTERNAL CLINICAL LAB 03/24/2025 EXTERNAL CLINICAL LAB 03/24/2025 EXTERNAL CLINICAL LAB 03/24/[address] REPORT 03/24/2025 HEMOGLOBIN A1C Routine 12/25/2024 9:47 AM EDT Type II diabetes mellitus with neurological manifestations (CMS/HCC V24, CMS/HCC V28) LIPID PANEL WITH REFLEX TO DIRECT LDL Routine 12/25/2024 9:47 AM EDT High cholesterol MG MAMMO DIGITAL SCREENING W JUAN BILAT Routine 10/05/2024 9:06 AM EST Encounter for screening mammogram for breast cancer MICROALBUMIN CREATININE URINE RATIO Routine 06/24/2024 9:17 AM EST Type II diabetes mellitus with neurological manifestations (CMS/HCC V24, CMS/HCC V28) HM DIABETES FOOT EXAM Routine 12/15/2023 COLONOSCOPY Routine 09/21/2023 HM HPV Routine 12/19/2022 PAP SMEAR Routine 12/19/2022 HEPATITIS C SCREENING Routine 01/08/2013 from Last 3 Months or Most Recently Relevant to Health Maintenance Results * Creatinine (06/05/2025 1:52 PM EDT) Creatinine 0.99 0.50 - 1.10 mg/dL LAB CHEMISTRY METHOD 06/05/2025 5:00 PM EDT [facility] eGFR 64 >=60 mL/min/1. 73m2 LAB CHEMISTRY METHOD 06/05/2025 5:00 PM EDT [facility] Comment:Calculation based on the Chronic Kidney Disease Epidemiology Collaboration (CKD-EPI) equation refit without adjustment for race. Blood Venous blood specimen / Unknown Venipuncture / Unknown 06/05/2025 1:52 PM EDT 06/05/2025 1:52 PM EDT us Miguelina FELICIANO LAB BLOOD ORDERABLES Final Res ult Performing Organization Address [facility] de Phone Number [facility] [address] [place] [address], [place] [phone] * (ABNORMAL) BUN (06/05/2025 1:52 PM EDT) BUN 28(H) 5 - 25 mg/dL LAB CHEMISTRY METHOD 06/05/2025 5:08 PM EDT [facility] Blood Venous blood specimen / Unknown Venipuncture / Unknown 06/05/2025 1:52 PM EDT 06/05/2025 1:52 PM EDT us Miguelina FELICIANO LAB BLOOD ORDERABLES Final Res ult [facility] [address] [place] [address], [place] [phone] * Urine culture (05/30/2025 10:51 AM EDT) Only the most recent of4 resultswithin the time period is included. Culture, Urine <10,000 CFU/mL gram negative bacilli, insignificant count, no further workup 05/31/2025 8:58 AM EDT [facility] Urine Urine specimen obtained by clean catch procedure / Unknown Non-blood Collection / Unknown 05/30/2025 10:51 AM EDT 05/30/2025 10:51 AM EDT Miguelina FELICIANO LAB MICROBIOLOGY - GENERAL ORD ERABLES Final Result Performing Organization Address [facility]/State/ZIP Co de Phone Number [facility] [address] [place] [address], [place] [phone] * Non-gynecologic cytology (05/16/2025 12:00 AM EDT) Final Diagnosis Urine, Voided, ([id number]): Negative for high grade urothelial carcinoma. Acute inflammatory cells are present. Results of [employer] fluorescence in situ hybridization (FISH) testing: CEP3: Normal CEP7: Normal CEP17: Normal LSI 9p21: Normal Interpretation: Normal profile Controls stained appropriately. Note: The results are intended as a screening device and should be interpreted in association with other clinical and pathological findings. 06/06/2025 1:55 PM EDT [facility] at 1355 EDT Specimen A Adequacy Satisfactory for evaluation 06/06/2025 1:55 PM EDT [facility] Clinical Information Gross hematuria R31.0 Urine Cytology/FISH (now) 06/06/2025 1:55 PM EDT [facility] Gross Description A. Urine, Voided, ([id number]): Received one ThinPrep slide for cytology and one ThinPrep slide for [employer] FISH 06/06/2025 1:55 PM EDT [facility] Disclaimer Unless otherwise specified, all tissue is 10% NB formalin fixed and paraffin embedded. Technical pathology services provided by [facility] at [address], [place] [address] (CLIA #[id number]/Brook Lee MD, Mobile Home Set Up Person) 06/06/2025 1:55 PM EDT [facility] Urine Urine specimen from urethra / Unknown 05/16/2025 06/03/2025 2:13 PM EDT us Miguelina FELICIANO LAB CYTOLOGY ORDERABLES Final Result [facility] [address] [place] [address], [place] [phone] * (ABNORMAL) Urinalysis with reflex microscopic (04/25/2025 2:36 PM EDT) Specific [place] Urine 1.019 1.003 - 1.030 LAB URINALYSIS - AUTOMATED METHOD 04/25/2025 6:57 PM EDT [facility] pH, Urine 6.0 5.0 - 8.0 pH LAB URINALYSIS - AUTOMATED METHOD 04/25/2025 6:57 PM EDT [facility] Leukocytes, Urine Negative Negative LAB URINALYSIS - AUTOMATED METHOD 04/25/2025 6:57 PM EDT [facility] Nitrite, Urine Negative Negative LAB URINALYSIS - AUTOMATED METHOD 04/25/2025 6:57 PM EDT [facility] Protein, Urine 30(A) <=Trace mg/dL LAB URINALYSIS - AUTOMATED METHOD 04/25/2025 6:57 PM EDT [facility] Glucose, Urine Negative Negative mg/dL LAB URINALYSIS - AUTOMATED METHOD 04/25/2025 6:57 PM EDT [facility] Ketones, Urine Trace(A) Negative mg/dL LAB URINALYSIS - AUTOMATED METHOD [facility]2025 6:[facility] Urobilinogen , Urine 1.0 0.2 - 1.0 mg/dL LAB URINALYSIS - AUTOMATED METHOD 04/25/2025 6:57 PM [facility] Bilirubin, Urine Negative Negative LAB URINALYSIS - AUTOMATED METHOD 04/25/2025 6:57 PM [facility] Blood, Urine Moderate(A) Negative LAB URINALYSIS - AUTOMATED METHOD 04/25/2025 6:57 PM [facility] RBC, Urine 9(H) 0 - 4 /HPF 04/25/2025 6:57 PM [facility] WBC, Urine 65(H) 0 - 4 /HPF 04/25/2025 6:57 PM [facility] Squamous Epithelial, Urine 30 0 - 60 /LPF 04/25/2025 6:57 PM [facility] Non-Squamous Epithelial, Urine 10-20 Transitional epithelial cells. /LPF 04/25/2025 6:57 PM [facility] Bacteria, Urine Many(A) Negative /HPF 04/25/2025 6:57 PM [facility] Hyaline Casts, Urine 10(H) 0 - 3 /LPF 04/25/2025 6:57 PM [facility] Other Casts, Urine Rare Fine Granular casts. /LPF 04/25/2025 6:57 PM [facility] Mucus, Urine Moderate None /HPF 04/25/2025 6:57 PM [facility] Urine Urine specimen obtained by clean catch procedure / Unknown Non-blood Collection / Unknown 04/25/2025 2:36 PM EDT 04/25/2025 2:36 PM EDT us Milton Rush MD LAB URINE ORDERABLES Final Resu lt [facility] [address] [place] [address], [place] [phone] * External clinical lab (04/02/2025) Only the most recent of19 resultswithin the time period is included. us Provider [facility] LAB BLOOD ORDERABLES Fin al Result * External CT Report (03/24/2025) Anatomical Region Laterality Modality Computed Tomogra phy Provider [facility] IMG CT PROCEDURES Final Result * (ABNORMAL) Lipid panel with reflex to direct LDL (12/25/2024 9:47 AM EDT) Cholesterol 157 0 - 200 mg/dL LAB CHEMISTRY METHOD 12/25/2024 12:49 PM [facility] Triglycerides 166(H) 0 - 150 mg/dL LAB CHEMISTRY METHOD 12/25/2024 12:49 PM EDT [facility] HDL 56 >=40 mg/dL LAB CHEMISTRY METHOD 12/25/2024 12:49 PM T [facility] LDL Calculated 68 0 - 100 mg/dL LAB CHEMISTRY METHOD 12/25/2024 12:49 PM [facility] VLDL Cholesterol Arpan 33.2 mg/dL LAB CHEMISTRY METHOD 12/25/2024 12:49 PM EDT [facility] Non HDL Chol. (LDL+VLDL) 101 <145 mg/dL LAB CHEMISTRY METHOD 12/25/2024 12:49 PM EDT [facility] Chol/HDL Ratio 2.8 0.0 - 4.4 LAB CHEMISTRY METHOD 12/25/2024 12:49 PM [facility] Blood Venous blood specimen / Unknown Venipuncture / Unknown 12/25/2024 9:47 AM EDT 12/25/2024 9:47 AM EDT [facility] LAB BLOOD ORDERABLES Fi nal Result Performing Organization Address [facility]/State/ZIP Co de Phone Number [facility] [address] [place] [address], [place] [phone] * (ABNORMAL) Hemoglobin A1c (12/25/2024 9:47 AM EDT) Hemoglobin A1C 9.4(H) <6.5 % LAB CHEMISTRY METHOD 12/27/2024 10:34 PM EDT [facility] Mean Bld Glu Estim. 223 mg/dL LAB CHEMISTRY METHOD 12/27/2024 10:34 PM EDT [facility] Blood Venous blood specimen / Unknown Venipuncture / Unknown 12/25/2024 9:47 AM EDT 12/25/2024 9:47 AM EDT [facility] BLOOD ORDERABLES Fi nal Result Performing Organization Address [facility]/ZIP Co de Phone Number [facility] [address] [place] [address], [place] [phone] * MG Mammo Digital Screening w Juan bilat (10/05/2024 9:06 AM EST) Anatomical Region Laterality Modality Breast Bilateral Mammography 10/07/2024 4:37 PM EST Impressions 10/07/2024 4:40 PM EST 1. No mammographic evidence of malignancy 2. Scattered fibroglandular tissue BI-RADS CATEGORY: 2 - BENIGN RECOMMENDATION: Screening bilateral mammogram is recommended in 1 year. Mammo Location: [facility], [address] [place] [address], [id number], . -------- FINAL REPORT -------- Dictated By: Tamela Sutton Dictated Date: 10/07/2024 16:37 ET Assigned Physician: Tamela Sutton Reviewed and Electronically Signed By: Tamela Sutton Signed Date: 10/07/2024 16:40 ET Workstation ID: [id number] Transcribed By: Self Edit Transcribed Date: 10/07/2024 [...] is recommended in 1 year. Mammo Location: [facility], [address] [place] [address], [id number], . -------- FINAL REPORT -------- Dictated By: Tamela Sutton Dictated Date: 10/07/2024 16:37 ET Assigned Physician: Tamela Sutton Reviewed and Electronically Signed By: Tamela Sutton Signed Date: 10/07/2024 16:40 ET Workstation ID: [id number] Transcribed By: Self Edit Transcribed Date: 10/07/2024 16:37 ET Milton Rush MD IMG BI PROCEDURES Final Result * (ABNORMAL) Microalbumin creatinine urine ratio (06/24/2024 9:17 AM EST) [facility] Creatinine, Urine 333.0 mg/dL LAB CHEMISTRY METHOD 06/24/2024 10:58 AM EST [facility] Microalb, Ur 53.0(H) 0.0 - 29.0 mg/L LAB CHEMISTRY METHOD 06/24/2024 10:58 AM EST [facility] Microalb/Crea t Ratio 16 <30 mg/g creat LAB CHEMISTRY METHOD 06/24/2024 10:58 AM EST [facility] Urine Urine specimen obtained by clean catch procedure / Unknown Non-blood Collection / Unknown 06/24/2024 9:17 AM EST 06/24/2024 9:17 AM EST Milton Rush MD LAB URINE ORDERABLES Final Resu lt [facility] [address] [place] [address], [place] [phone] * Diabetes Foot Exam (12/15/2023) [facility] Diabetes: Annual Foot Exam abstracted Historical Alex [facility] MAINTENANCE Final Result * Colonoscopy (09/21/2023) [facility] Colonoscopy no interpretation , abstracted Anatomical Region Laterality Modality Other Historical Alex [facility] MAINTENANCE Final Result * Cervical Cancer Screening: HPV (12/19/2022) [facility] Cervical Cancer Screening: HPV no interpretation , abstracted Stevo Johnson MD HEALTH MAINTENANCE Final Result * Pap smear (12/19/2022) 12/19/2022 Narrative HISTORICAL TESTING LAB RESULTING AGENCY - 12/26/2022 7:40 AM EDT [id number] THINPREP PAP, IMAGED: NEGATIVE FOR SQUAMOUS INTRAEPITHELIAL [...] Most Recently Relevant to Health Maintenance Insurance [facility] Care Teams 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
--- OUTSIDE RECORDS SUMMARY | 2025-06-20 20:04 | XMS_ITS | Encounter Summary ---
Author Organization [facility] Address [address] [place] [address] Care Team Providers Care Machine Maintenance Mechanic Name Role Phone Milton Rush MD Primary Care Provider [phone] Reason for Visit * Reason Comments home health cert Encounter Details Date Type Department Care Team (Late st Contact Info) Description 05/26/2025 Billing Patient Not Present Adult Medicine [address] [phone] Milton Rush MD [address] [place] [address] Social History Tobacco Use Types Packs/Day Years [...] care for your loved ones. For example, children teacher or elderly care for an older adult? [...] on file documented as of this encounter Plan of Treatment Upcoming Encounters Date Type Department Care Team (Late st Contact Info) Description 06/25/2025 1:45 PM EST Appointment Radiology Department - [address] [phone] 06/26/2025 8:00 AM EST Office Visit Gastroenterology - 299 [facility] 299 [facility] [address] [place] [address] Zohreh Sotelo, YORDAN 299 [facility] [address] [place] [address] 06/26/2025 8:30 AM EST Clinical Support General Surgery - [place] 175 [facility] [address] [place] [address] 07/07/2025 3:30 PM EST Office Visit Pulmonology - [place] 175 [facility] 200 [place] [phone] Jose M Hall MD [address] [place] [address] 07/25/2025 9:00 AM EST Office Visit [facility] Hematology Oncology [address] [place] [phone] Chrissy Briggs MD [address] [place] [address] 08/04/2025 8:30 AM EST Office Visit Adult Medicine [facility] - [address] [phone] Milton Rush MD [address] [place] [address] 10/11/2025 9:30 AM EST Appointment Radiology Department - [address] [phone] documented as of this encounter Visit Diagnoses Not on filedocumented in this encounter Additional Health Concerns Assessment Noted Time PHQ-9 Depression Total Score: 0 11/28/19 25 4:50 PM EDT documented as of this encounter Care Teams Machine Maintenance Mechanic Relationship Specialty Start Date End Date Milton Rush MD [address] [place] [phone] PCP - General Internal Medicine 02/11/20 documented as of this encounter
--- OUTSIDE RECORDS SUMMARY | 2025-06-20 20:04 | XMS_ITS | Encounter Summary ---
Author Organization [facility] Address [address] [place] [address] Care Team Providers Care Tape Cutting Machine Operator Name Role Phone Milton Rush MD Primary Care Provider Encounter Details Date Type Department Care Team (Late st Contact Info) Description 06/03/[address] [facility] - Main Lab 299 [facility] [place] [address] Miguelina Mccullough PA [address] [place] [address] Gross hematuria Social History Tobacco Use Types Packs/Day Years [...] for your loved ones. For example, child support specialist or elderly care for an older adult? [...] 1:45 PM EST Appointment Radiology Department - [address] [phone] 06/26/2025 8:00 AM EST Office Visit Gastroenterology - 299 [place] 299 [facility] [address] [place] [address] Zohreh Sotelo, YORDAN 299 [facility] [address] [place] [address] 06/26/2025 8:30 AM EST Clinical Support General Surgery - [place] 175 [facility] 110 [place] [phone] 07/07/2025 3:30 PM EST Office Visit Pulmonology - [place] 175 [facility] 200 [place] [address] Jose M Hall MD 230 [place] [address] 07/25/2025 9:00 AM EST Office Visit [facility] Hematology Oncology [address] [place] [phone] Chrissy Briggs MD [address] [place] [address] 08/04/2025 8:30 AM EST Office Visit [facility] [place] - [address] [phone] Milton Rush MD [address] [place] [address] 10/11/2025 9:30 AM EST Appointment Radiology Department - [address] [phone] documented as of this encounter Procedures Procedure Name Priority Date/Time Associated Diagnosis Comments NON-GYNECOLOGIC CYTOLOGY Routine 05/16/2025 12:00 AM EDT Gross hematuria documented in this encounter Results * Non-gynecologic cytology (05/16/2025 12:00 AM EDT) Final Diagnosis Urine, Voided, ([id number]): Negative for high grade urothelial carcinoma. Acute inflammatory cells are present. Results of UroVysion fluorescence in situ hybridization (FISH) testing: CEP3: Normal CEP7: Normal CEP17: Normal LSI 9p21: Normal Interpretation: Normal profile Controls stained appropriately. Note: The results are intended as a screening device and should be interpreted in association with other clinical and pathological findings. 06/06/2025 1:55 PM EDT [facility] at 1355 EDT Specimen A Adequacy Satisfactory for evaluation 06/06/2025 1:55 PM EDT [facility] Clinical Information Gross hematuria R31.0 Urine Cytology/FISH (now) 06/06/2025 1:55 PM EDT [facility] Gross Description A. Urine, Voided, ([id number]): Received one ThinPrep slide for cytology and one ThinPrep slide for UroVysion FISH 06/06/2025 1:55 PM EDT [facility] Disclaimer Unless otherwise specified, all tissue is 10% NB formalin fixed and paraffin embedded. Technical pathology services provided by [facility] Urology at [address], [place] [address] (CLIA #[id number]/Brook Lee MD, Meter Readers Supervisor) 06/06/2025 1:55 PM EDT [facility] Urine Urine specimen from urethra / Unknown 05/16/2025 06/03/2025 2:13 PM EDT us Miguelina FELICIANO LAB CYTOLOGY ORDERABLES Final Result [facility] [address] [place], [place] [address] [phone] documented in this encounter Visit Diagnoses Diagnosis Gross hematuria documented in this encounter Additional Health Concerns Assessment Noted Time PHQ-9 Depression Total Score: 0 11/28/19 25 4:50 PM EDT documented as of this encounter Care Teams Tape Cutting Machine Operator Relationship Specialty Start Date End Date Milton Rush MD [address] [place] [phone] PCP - General Internal Medicine 02/11/20 documented as of this encounter
--- OUTSIDE RECORDS SUMMARY | 2025-06-20 20:04 | XMS_ITS | Encounter Summary ---
Author Organization [facility] Address [address] [place] [address] Care Team Providers Care Business Office Representative Name Role Phone Milton Rush MD Primary Care Provider [phone] Reason for Visit * Reason Onset Date Comments call back 06/19/2025 Encounter Details Date Type Department Care Team (Late st Contact Info) Description 06/19/2025 Telephone Adult Medicine [address] [phone] Lisa Ham MA Social History Tobacco Use Types Packs/Day Years [...] for your loved ones. For example, child nurse or elderly care for an older adult? [...] on file documented as of this encounter Progress Notes * Lisa Ham MA - 06/19/2025 1:02 PM EST Patient states she is returning a call to Esther from today at 12:34p documented in this encounter Plan of Treatment Upcoming Encounters Date Type Department Care Team (Late st Contact Info) Description 06/25/2025 1:45 PM EST Appointment Radiology Department - [address] [phone] 06/26/2025 8:00 AM EST Office Visit Gastroenterology - 299 [facility] 299 [facility] [address] [place] [address] Zohreh Sotelo, YORDAN 299 [facility] [address] [place] [address] 06/26/2025 8:30 AM EST Clinical Support General Surgery - [place] 175 [facility] 110 [place] [phone] 07/07/2025 3:30 PM EST Office Visit Pulmonology - [place] 175 [facility] 200 [place] [address] Jose M Hall MD 230 [place] [phone] 07/25/2025 9:00 AM EST Office Visit [facility] Hematology Oncology [address] [place] [phone] Chrissy Briggs MD 271 [place] [address] 08/04/2025 8:30 AM EST Office Visit Adult Medicine [facility] - [address] [phone] Milton Rush MD [address] [place] [address] 10/11/2025 9:30 AM EST Appointment Radiology Department - [place] [address] [place] [address] documented as of this encounter Visit Diagnoses Not on filedocumented in this encounter Additional Health Concerns Assessment Noted Time PHQ-9 Depression Total Score: 0 11/28/19 25 4:50 PM EDT documented as of this encounter Care Teams Business Office Representative Relationship Specialty Start Date End Date Milton Rush MD 4 [place] [address] PCP - General Internal Medicine 02/11/20 documented as of this encounter
--- OUTSIDE RECORDS SUMMARY | 2025-06-20 20:04 | XMS_ITS | Encounter Summary ---
Author Organization [facility] Address [address] [place] [address] [place] [address] Phone Care Team Providers Care Commercial Loan Assistant Name Role Phone John Barillas MD Unavailable [phone] Milton Rush MD Primary Care Provider + Cheryl Orellana MD, MSc Unavailable [phone] Henrry Patel MD Unavailable [phone] Encounter Details Date Type Department Care Team (Late st Contact Info) Description 02/25/2025 Prep for Surgery [facility] Plastic Surgery [address] [address] Ron [email or web address] Social History Tobacco Use Types Packs/Day Years Used Date Smoking Tobacco: Never Passive Smoke Exposure: Never Smokeless Tobacco: Never Child or Family Care Answer Date Record ed Do you have problems with on e of the following making it difficult for you to work, study, or receive health care? No 02/03/2025 Education Answer Date Recorded Are you interested in help w ith more adult education (for example, completing high school, GED, job training, learning the [place] language, technical skills, or developing parenting skills)? No 02/03/2025 Are you concerned about learning? Not on file 02/03/2025 No 02/03/2025 Yes 02/03/2025 Food Answer Date Recorded Within the past 6 months we worried whether our food would run out before we got money to buy more. Never True 02/03/2025 Within the past 6 months the food we bought just didn't last and we didn't have enough money to get more. Never True Residential Stability Answer Date Recor ded What is your housing situation today? I have pedro luis sing 02/03/2025 How many times have you move d in the past 12 months? Zero (I did not move) 02/03/2025 Paying for Meds Answer Date Recorded Do you have trouble paying for medicines? No 02/03/2025 Transportation Answer Date Recorded Has the lack of transportati on kept you from medical appointments or from getting medications? No 02/03/2025 Digital Access Answer Date Recorded No 02/03/2025 No 02/03/2025 Reliable internet access at home? Not on file 02/03/2025 Device with a working camera? Not on file Comments Unknown Sex and Gender Information Value Date Recorded [...] on filedocumented in this encounter Care Teams Commercial Loan Assistant Relationship Specialty Start Date End Date Milton Rush MD [address] [place] [address] PCP - General 02/03/25 John Barillas MD [address] [place] [address] Referring Physician General Surgery 02/03/25 Cheryl Orellana MD, MSc [address] [place] [address] [email or web address] Colon [email or web address] Rectal Surgery 02/03/25 Henrry Patel MD [address] [place] [address] [email or web address] Medical Oncology 02/03/25 documented as of this encounter Additional Source Comments The information contained in this document represents components of the legal health record. It is not the complete legal health record.[facility]
--- OUTSIDE RECORDS SUMMARY | 2025-06-20 20:04 | XMS_ITS | Encounter Summary ---
Author Organization [facility] Address [address] [place] [address] Care Team Providers Care Steam Station Supervisor Name Role Phone Milton Rush MD Primary Care Provider Encounter Details Date Type Department Care Team (Late st Contact Info) Description 05/16/2025 Lab Requisition [facility] - Main Lab [address] [facility] [address] [place] [address] Miguelina Mccullough PA [address] [place] [address] Urinary tract infection, site not specified; Dysuria Social History Tobacco Use Types Packs/Day Years [...] your loved ones. For example, child care group leader or elderly care for an older adult? [...] PM EST Appointment Radiology Department - [address] [phone] 06/26/2025 8:00 AM EST Office Visit Gastroenterology - 299 [facility] 299 [facility] [address] [place] [address] Zohreh Sotelo, YORDAN 299 [facility] 419 [place] [address] 06/26/2025 8:30 AM EST Clinical Support General Surgery - [place] 175 [facility] 110 [place] [phone] 07/07/2025 3:30 PM EST Office Visit Pulmonology - [place] 175 [facility] 200 [place] [phone] Jose M Hall MD 230 [place] [address] 07/25/2025 9:00 AM EST Office Visit [facility] Hematology Oncology [address] [place] [phone] Chrissy Briggs MD 271 [place] [address] 08/04/2025 8:30 AM EST Office Visit Adult Medicine [facility] - [address] [phone] Milton Rush MD [address] [place] [address] 10/11/2025 9:30 AM EST Appointment Radiology Department - [address] [phone] documented as of this encounter Procedures Procedure Name Priority Date/Time Associated Diagnosis Comments CULTURE URINE Routine 05/16/2025 12:00 AM EDT Urinary tract infection, site not specified Dysuria documented in this encounter Results * Culture urine (05/16/2025 12:00 AM EDT) Culture, Urine <10,000 CFU/mL gram negative bacilli, insignificant count, no further workup 05/17/2025 11:14 AM EDT [facility] Urine Urine specimen obtained by clean catch procedure / Unknown 05/16/2025 05/16/2025 2:04 PM EDT us Miguelina FELICIANO LAB MICROBIOLOGY - GENERAL ORD ERABLES Final Result [facility] [address] [place] [address], documented in this encounter Visit Diagnoses Diagnosis Urinary tract infection, site not specified Dysuria documented in this encounter Additional Health Concerns Assessment Noted Time PHQ-9 Depression Total Score: 0 11/28/19 25 4:50 PM EDT documented as of this encounter Care Teams Steam Station Supervisor Relationship Specialty Start Date End Date Milton Rush MD 4 [place] [address] PCP - General Internal Medicine 02/11/20 documented as of this encounter
--- OUTSIDE RECORDS SUMMARY | 2025-06-20 20:05 | XMS_ITS | Encounter Summary ---
Author Organization [facility] Address [address] [place] [address] Care Team Providers Care Firebrick Layer Name Role Phone Milton Rush MD Primary Care Provider [phone] Encounter Details Date Type Department Care Team Description 12/09/2022 Social Work [facility] Oncology Services [address] [place] [address] [facility] Social History Tobacco Use Types Packs/Day Years Used Date Smoking Tobacco: Never Smokeless Tobacco: Never Alcohol Use Standard [...] file Not on file Not on file COVID-19 Exposure Response Date Recorded In the last 10 days, have yo u been in contact with someone who was confirmed or suspected to have Coronavirus/COVID-19? No / Unsure 12/06/2022 2:36 PM EDT documented as of this encounter Plan of Treatment Not on file documented as of this encounter Visit Diagnoses Not on filedocumented in this encounter Care Teams Firebrick Layer Relationship Specialty Start Date End Date Milton Rush MD PCP - General Internal Medicine 12/02/22 documented as of this encounter
--- OUTSIDE RECORDS SUMMARY | 2025-06-20 20:05 | XMS_ITS | Clinical Summary ---
Author Organization [facility] Address [address] [place] [address] Care Team Providers Care Vine Pruner Name Role Phone Milton Rush MD Primary Care Provider Allergies Active Allergy Reactions Criticality Noted Date [...] Pfizer risk series) 07/16/2022 06/25/2022 Influenza Vaccine (#1) 2025 9, 08/17/2018, 08/05/2015, Additional history exists RSV Adult > 60+ Yrs or (1 - 1-dose 75+ series) 2035 Hepatitis B Vaccines Aged Out No long er eligible based on patient's age to complete this topic RSV Ped < 20 months Aged Out No longe r eligible based on patient's age to complete this topic Care Teams Vine Pruner Relationship Specialty Start Date End Date Milton Rush MD PCP - General Internal Medicine 12/02/22
--- OUTSIDE RECORDS SUMMARY | 2025-06-20 20:05 | XMS_ITS ---
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 Past Plans ONCOLOGY TREATMENT Plan Name Start Date Discontinue Date Treatment Medications Discontinue Reason Plan Provider Cycles [facility] BCN OP FLUOROURACIL CI + MITOMYCIN + XRT (Anal) 3 10/10/2023 albuterol (PROVENTIL)diph enhydrAMINE (BENADRYL)EPINE PHrinefamotidin e (PF) (PEPCID)hydroco rtisone (SOLU-CORTEF) IVmeperidine (DEMEROL) 25 MG/MLmitoMYcin (MUTAMYCIN)onda nsetron (ZOFRAN-ODT)pro chlorperazine (COMPAZINE)Sali ne Flush 0.9 %sodium chloride (NS) 0.9 %sodium chloride 0.9% bolus (NS) Therapy Complete Chrissy Briggs MD 1 of 1 cycle started Radiation Treatments * No radiation treatments are documented for this patient in [facility]. Treatments may have been administered in another system.
--- OUTSIDE RECORDS SUMMARY | 2025-06-20 20:05 | XMS_ITS | Clinical Summary ---
Author Organization [facility] Address [address] [place] [address] [place] [id number] Phone Care Team Providers Care Supervisor Filtration Name Role Phone John Barillas MD Unavailable [phone] Milton Rush MD Primary Care Provider + Cheryl Orellana MD, MSc Unavailable [phone] Henrry Patel MD Unavailable [phone] Allergies Active Allergy Reactions Criticality Noted Date Comments Azithromycin Other (See Comments) Medium 01/17/2025 Ciprofloxacin 12/29/2011 Other reaction(s): Rash/Dermatitis House Dust Mite 03/05/2025 Sulfa (Sulfonamide Antibiotics) Diarrhea 09/13/2023 Medications albuterol 90 mcg/actuation inhaler Inhale 1 puff into the lungs every 6 (six) hours as needed. 04/30/2024 Active amLODIPine (NORVASC) 10 MG tablet Take 10 mg by mouth nightly at bedtime. 11/07/2024 Active ELIQUIS 5 mg tablet Take 5 mg by mouth every 12 (twelve) hours. 12/19/2023 Active atorvastatin (LIPITOR) 20 MG tablet Take 20 mg by mouth nightly at bedtime. at bedtime. 11/07/2024 Active fluticasone propionate (FLONASE) 50 mcg/actuation nasal spray 2 sprays by Nasal route daily. 11/28/2024 11/29/19 26 Active levETIRAcetam (KEPPRA) 250 MG IMMEDIATE release tablet Take 250 mg by mouth 2 (two) times a day. 02/05/2025 Active losartan (COZAAR) 50 MG tablet Take 50 mg by mouth daily. 12/23/2024 Active omeprazole (PRILOSEC) 20 MG capsule Take 20 mg by mouth daily. Active ascorbic acid, vitamin C, (ASCORBIC ACID) 250 mg Chew Take 250 mg by mouth daily. Active FREESTYLE GUNJAN 3 PLUS SENSOR Bl[place]ita Box = Kit = EA, change sensors every 2 weeks 12/31/2024 Active insulin aspart U-100 (NOVOLOG) 100 unit/mL (3 mL) injection pen Three times a day before meals as directed MAX up to 45 units day 11/14/2024 Active acetaminophen (TYLENOL) 325 mg tablet Take 2 tablets (650 mg total) by mouth 4 (four) times a day. 03/14/2025 Active senna (SENOKOT) 8.6 mg tablet Take 1 tablet by mouth 2 (two) times a day. 03/14/2025 Active insulin glargine (LANTUS) 100 unit/mL injection vial Inject 12 Units under the skin 2 (two) times a day. 10 mL 2 04/03/2025 08/06/20 25 Active traMADoL (ULTRAM) 50 mg tablet Take 1 tablet (50 mg total) by mouth every 8 (eight) hours as needed for pain (specific location in comments). 15 tablet 04/03/2025 Active insulin aspart ([id number]) 100 units/mL 3 mL injection Inject 0-6 Units under the skin as directed. Blood glucose (mg/dL): Insulin dose Glucose 70-150: 0 unit. Glucose 151-200: 1 unit. Glucose 201-250: 2 units. Glucose 251-300: 3 units. Glucose 301-350: 4 units. Glucose 351-400: 5 units. Glucose >400: 6 units 3 mL 11 04/03/2025 Active insulin aspart ([id number]) 100 units/mL 3 mL injection Inject 4 Units under the skin 4 (four) times a day before meals and nightly. Take as directed. 3 mL 11 04/03/2025 Active ondansetron (ZOFRAN) 4 MG tablet Take 1 tablet (4 mg total) by mouth every 8 (eight) hours as needed for nausea. 30 tablet 04/14/2025 Active Active Problems Problem Noted Date Diagnosed Date Alkaline phosphatase elevation 03/28/2025 Assessment & Plan (04/02/2025 5:11 PM EDT): - Alkaline phosphatase has been elevated. When she first presented all LFTs slightly elevated, improved but alkphos and GGT remained elevated. Ultrasound did not show any acute biliary obstruction or cause. Was seen to gradually down trend. Will need follow up LFTs in 2 weeks. Assessment & Plan (04/01/2025 4:56 PM EDT): - Alkaline phosphatase has been elevated. When she first presented all LFTs slightly elevated, improved but alkphos and GGT remained elevated. Ultrasound did not show any acute biliary obstruction or cause. Was seen to gradually down trend. Will need follow up LFTs in 2 weeks. Assessment & Plan (03/31/2025 9:11 PM EDT): - Alkaline phosphatase has been elevated. When she first presented all LFTs slightly elevated, improved but alkphos and GGT remained elevated. Ultrasound did not show any acute biliary obstruction or cause. Was seen to gradually down trend. Will need follow up LFTs in 2 weeks. Assessment & Plan (03/30/2025 6:01 PM EDT): - Alkaline phosphatase has been elevated - Reviewed recent imaging does not appear there has been any evidence of bony metastasis -She had imaging on 03/26 that did not show any biliary obstruction or acute liver findings -Reassuring that the bilirubin is not elevated continue to follow- and alk phos is downtrending - check RUQ u/s pending Assessment & Plan (03/29/2025 10:44 PM EDT): - Alkaline phosphatase has been elevated - Reviewed recent imaging does not appear there has been any evidence of bony metastasis -She had imaging on 03/26 that did not show any biliary obstruction or acute liver findings -Reassuring that the bilirubin is not elevated continue to follow - check RUQ u/s Assessment & Plan (03/28/2025 5:18 PM EDT): - Alkaline phosphatase has been elevated and is slightly higher today Do not see previous alk phos studies before February of this year -Will check GGT - Reviewed recent imaging does not appear there has been any evidence of bony metastasis -She had imaging on 03/26 that did not show any biliary obstruction or acute liver findings -Reassuring that the bilirubin is not elevated continue to follow - Could be related to antibiotic if worsening may need to change antibiotic coverage Hypoxia 03/26/2025 Assessment & Plan (04/02/2025 5:11 PM EDT): Transient, likely atelectasis, improved with mobilization. Assessment & Plan (04/01/2025 4:56 PM EDT): Transient, likely atelectasis, improved with mobilization. Assessment & Plan (03/31/2025 9:11 PM EDT): Transient, likely atelectasis, improved with mobilization. Assessment & Plan (03/30/2025 6:01 PM EDT): - mild suspect atelectasis - trying to mobilize - weaned off 03/30 Assessment & Plan (03/29/2025 10:44 PM EDT): - mild suspect atelectasis - trying to mobilize - weaning Assessment & Plan (03/28/2025 5:15 PM EDT): - mild suspect atelectasis - trying to mobilize - if worsening then chest xray Assessment & Plan (03/27/2025 10:14 AM EDT): - mild suspect atelectasis - trying to mobilize - if worsening then chest xray Assessment & Plan (03/26/2025 2:12 PM EDT): - mild - monitor closely, could be atelectasis, encourage as much mobilization as she can tolerate, activity restriction to avoid any sitting, pain too severe for her to stand - PNA would be covered, at risk for PE but is anticoagulated and not having other signs to suggest PE, atelectasis possible, use incentive spirometer, appears she only received 1L so do not suspect significant volume overload. Postoperative infection, uns pecified type, initial encounter 03/24/2025 Assessment & Plan (04/02/2025 5:11 PM EDT): Presented with severe pain of right lower quadrant at drain site. After her surgery she was at rehab where she was eating and ambulating when the pain became severe such that she couldn't walk or get out of bed. Reported small amount of redness at drain site. She had fever and mild leukocytosis. CT abdomen pelvis showed fat stranding/trace fluid in RLQ centered around drain including skin thickening and subcutaneous fat but no fluid collection. It was reviewed with her surgeon Dr. Orellana who felt it was abdominal wall cellulitis. She was treated with vancomycin and zosyn. She had very severe pain, difficult to control with IV dilaudid. Repeat CT on 03/25 showed intervally increased soft tissue edema of the right lateral abdominal wall and muscular wall layers surrounding the percutaneous drain no drainable fluid collection seen. This also was discussed with Dr. Orellana who felt continued IV antibiotics needed. She felt treatment course of zosyn to augmentin likely indicated. MRSA screen was negative and vancomycin was stopped. She had gradual improvement in her symptoms. RLQ drain output was minimal and Dr. Orellana recommended remove drain 03/28. Pain gradually improved and she was able to resume working with PT. She completed 7 days of zosyn and because infection was initially slow to respond, will complete total 10 days with augmentin thru 04/03. She also has buttocks incision and right thigh incision. Dr. Carlisle was contacted twice and recommended thigh drain removal after she was back to ambulating and output was still less than 10 ml for 2 days. Removed on 03/31. She will need oncology and surgical follow up as was previously recommended by her [facility] team. For pain, she was needing IV hydromorphone and eventually transitioned to oral hydromorphone and then mainly acetaminophen. For home going she wanted some pills, in case she has increased pain. Avoiding hydromorphone due to shortage, morphine pills may be too strong, oxycodone has caused vomiting in past. Will use tramadol. She intends to use sparingly with acetaminophen for breakthrough. Does lower seizure threshold but feel at the very small doses she intends to use, it likely ok. If she needs higher doses, will have to switch to another opioid. Repeated imaging of buttock surgical site fails to show any abscess or other abnormality besides edema Will transition to oral antibiotics in preparation for discharge Assessment & Plan (04/02/2025 12:30 PM EDT): This is a 64-year-old female with a past medical history of diabetes, recent anal cancer status post bowel resection, colostomy placement with omental flap who previously had 3 drains which include 1 in the left buttock, right thigh, right lower abdomen all of which have been removed. Called to bedside for LT buttock discharge. Her physical exam was remarkable for induration, with no discharge or bleeding. There is no tenderness to palpation. CT did not reach previous drain site. US showed no collection, rather edema. No new recommendations. Would continue local wound care. In total, chart review, physical exam, discussion with patient's, and attending physician Dr. Franklin took approximately 35 minutes. Assessment & Plan (04/01/2025 4:56 PM EDT): Presented with severe pain of right lower quadrant at drain site. After her surgery she was at rehab where she was eating and ambulating when the pain became severe such that she couldn't walk or get out of bed. Reported small amount of redness at drain site. She had fever and mild leukocytosis. CT abdomen pelvis showed fat stranding/trace fluid in RLQ centered around drain including skin thickening and subcutaneous fat but no fluid collection. It was reviewed with her surgeon Dr. Orellana who felt it was abdominal wall cellulitis. She was treated with vancomycin and zosyn. She had very severe pain, difficult to control with IV dilaudid. Repeat CT on 03/25 showed intervally increased soft tissue edema of the right lateral abdominal wall and muscular wall layers surrounding the percutaneous drain no drainable fluid collection seen. This also was discussed with Dr. Orellana who felt continued IV antibiotics needed. She felt treatment course of zosyn to augmentin likely indicated. MRSA screen was negative and vancomycin was stopped. She had gradual improvement in her symptoms. RLQ drain output was minimal and Dr. Orellana recommended remove drain 03/28. Pain gradually improved and she was able to resume working with PT. She completed 7 days of zosyn and because infection was initially slow to respond, will complete total 10 days with augmentin thru 04/03. She also has buttocks incision and right thigh incision. Dr. Carlisle was contacted twice and recommended thigh drain removal after she was back to ambulating and output was still less than 10 ml for 2 days. Removed on 03/31. She will need oncology and surgical follow up as was previously recommended by her [facility] team. For pain, she was needing IV hydromorphone and eventually transitioned to oral hydromorphone and then mainly acetaminophen. For home going she wanted some pills, in case she has increased pain. Avoiding hydromorphone due to shortage, morphine pills may be too strong, oxycodone has caused vomiting in past. Will use tramadol. She intends to use sparingly with acetaminophen for breakthrough. Does lower seizure threshold but feel at the very small doses she intends to use, it likely ok. If she needs higher doses, will have to switch to another opioid. Gen surgery still finding purulence with small opening in left buttock surgical site, recommending dedicated CT so will order Continue IVF abx for now Assessment & Plan (04/01/2025 10:26 AM EDT): This is a 64-year-old female with a past medical history of diabetes, recent anal cancer status post bowel resection, colostomy placement with omental flap who previously had 3 drains which include 1 in the left buttock, right thigh, right lower abdomen all of which have been removed. Called to bedside for LT buttock discharge. Her physical exam was remarkable for induration, with some mild to moderate discharge on the bandage. There is no tenderness to palpation. She had a recent CT scan that likely did not reach all the way to the buttock. At this point. Would recommend a noncontrast CT of the pelvis to delineate any potential collection. Would continue local wound care. In total, chart review, physical exam, discussion with patient's, and attending physician Dr. Franklin took approximately 35 minutes. Assessment & Plan (03/31/2025 9:22 PM EDT): Presented with severe pain of right lower quadrant at drain site. After her surgery she was at rehab where she was eating and ambulating when the pain became severe such that she couldn't walk or get out of bed. Reported small amount of redness at drain site. She had fever and mild leukocytosis. CT abdomen pelvis showed fat stranding/trace fluid in RLQ centered around drain including skin thickening and subcutaneous fat but no fluid collection. It was reviewed with her surgeon Dr. Orellana who felt it was abdominal wall cellulitis. She was treated with vancomycin and zosyn. She had very severe pain, difficult to control with IV dilaudid. Repeat CT on 03/25 showed intervally increased soft tissue edema of the right lateral abdominal wall and muscular wall layers surrounding the percutaneous drain no drainable fluid collection seen. This also was discussed with Dr. Orellana who felt continued IV antibiotics needed. She felt treatment course of zosyn to augmentin likely indicated. MRSA screen was negative and vancomycin was stopped. She had gradual improvement in her symptoms. RLQ drain output was minimal and Dr. Orellana recommended remove drain 03/28. Pain gradually improved and she was able to resume working with PT. She completed 7 days of zosyn and because infection was initially slow to respond, will complete total 10 days with augmentin thru 04/03. She also has buttocks incision and right thigh incision. Dr. Carlisle was contacted twice and recommended thigh drain removal after she was back to ambulating and output was still less than 10 ml for 2 days. Removed on 03/31. She will need oncology and surgical follow up as was previously recommended by her [facility] team. For pain, she was needing IV hydromorphone and eventually transitioned to oral hydromorphone and then mainly acetaminophen. For home going she wanted some pills, in case she has increased pain. Avoiding hydromorphone due to shortage, morphine pills may be too strong, oxycodone has caused vomiting in past. Will use tramadol. She intends to use sparingly with acetaminophen for breakthrough. Does lower seizure threshold but feel at the very small doses she intends to use, it likely ok. If she needs higher doses, will have to switch to another opioid. ADDENDUM: this evening concern regarding buttocks incision, tender and surgery only had limited view, plan for continue zosyn this evening and exam tomorrow with additional pain medication Assessment & Plan (03/30/2025 6:01 PM EDT): - felt to have abdominal wall cellulitis - repeat CT on 03/25 showed intervally increased soft tissue edema of the right lateral abdominal wall and muscular wall layers surrounding the percutaneous drain no drainable fluid collection seen -Initially treated with vancomycin and Zosyn MRSA screen was negative and vancomycin was stopped - For abdominal wall infection involving the skin and muscle, - RUQ drain removed 03/28 -Day 6 of Zosyn treatment, infection seems significantly improved but with initially slow to respond to antibiotic tentative plan to complete 7 to 10 days likely transition to Augmentin tomorrow If the thigh drain output is less than 10 mL overnight then we will ask surgery to pull it tomorrow, if it is over 10 mL will talk to her surgeon by phone as she says that he had told her it could be pulsatile and the output was less than 20 mL in a day Assessment & Plan (03/29/2025 10:44 PM EDT): - felt to have abdominal wall cellulitis - repeat CT on 03/25 showed intervally increased soft tissue edema of the right lateral abdominal wall and muscular wall layers surrounding the percutaneous drain no drainable fluid collection seen - For abdominal wall infection involving the skin and muscle, Will continue broad antibiotic coverage with piperacillin/tazobactam, leukocytosis improved (her surgeon had recommended likely vancomycin not needed and MRSA screen was negative) - RUQ drain removed 03/28 Assessment & Plan (03/28/2025 5:15 PM EDT): - felt to have abdominal wall cellulitis - repeat CT on 03/25 showed intervally increased soft tissue edema of the right lateral abdominal wall and muscular wall layers surrounding the percutaneous drain no drainable fluid collection seen - For abdominal wall infection involving the skin and muscle, Will continue broad antibiotic coverage with piperacillin/tazobactam, leukocytosis improved (her surgeon had recommended likely vancomycin not needed and MRSA screen was negative) For ileus versus constipation she has not had signs of full ileus though she was having many days without stool output and imaging findings suggestive of ileus - 03/28 having some stool output suspicious for continued constipation that she is passing hard pebble-like stool she is going to try to continue MiraLAX if she is not able to tolerate it we will transition to senna - Ideally would avoid opioids and antiemetics which could be contributing to the constipation and drying of the stool but these are needed for symptom management -Was n.p.o. into today will trial sips of clears for now Assessment & Plan (03/27/2025 12:59 PM EDT): - felt to have abdominal wall cellulitis - repeat CT on 03/25 showed intervally increased soft tissue edema of the right lateral abdominal wall and muscular wall layers surrounding the percutaneous drain no drainable fluid collection seen - Will continue broad antibiotic coverage with vancomycin and piperacillin/tazobactam, it does appear that the leukocytosis is gradually improving ADDENDUM -03/[address] Cheryl Orellana: - she reviewed CT findings from 03/25: increase in soft tissue edema - continues to feel that antibiotic treatment for abdominal wall infection is recommended coverage for intra-abdominal coverage likely eventually transitioning to ampicillin clavulanate once she is better - recommended if abdominal drain does not put out more than 10 ml overnight then remove tomorrow, confirmed no flushing of drain - aware of question constipation or ileus - recommended continue with miralax - her office will re-schedule follow up that was missed because Sandrine is admitted here - after we spoke Sandrine with increased nausea/vomiting - additional antiemetics for symptom control - will check abdominal xray - plan for NPO with IVF for presumed ileus - continue to try to mobilize - consider bowel regimen from below as does not seem to have full ileus (passing flatus, has bowel sounds, tolerating some oral intake) - pain: acetaminophen, oral hydromorphone, sparing use IV hydromorphone - previous hospitalist discussed case by phone with plastic surgeon Dr. Carlisle He is ok with removing the drain in the leg once she is mobilized for much of the day, as sometimes output increases with mobilization. Assessment & Plan (03/26/2025 2:12 PM EDT): - felt to have abdominal wall cellulitis - repeat CT on 03/25 showed intervally increased soft tissue edema of the right lateral abdominal wall and muscular wall layers surrounding the percutaneous drain no drainable fluid collection seen - Will continue broad antibiotic coverage with vancomycin and piperacillin/tazobactam, it does appear that the leukocytosis is gradually improving -Have a call into Dr. Cheryl Orellana regarding persistent severe pain, CT findings: increase in soft tissue edema, concern for partial ileus, question of ostomy irrigation by wound nurse, and patient's question regarding criteria/timing for drain removal - she was on bowel rest this morning b/c concern for ileus, but she reports tolerating some small amount of intake without vomiting - doesn't feel pain caused by oral intake - cautiously continue clear diet and miralax - encourage mobilization and using opioids sparingly, unfortunately severe pain makes both difficult - IF vomiting or worsening pain, would plan for NPO - previous hospitalist discussed case by phone with plastic surgeon Dr. Carlisle He is ok with removing the drain in the leg once she is mobilised for much of the day, as sometimes output increases with mobilization. Assessment & Plan (03/25/2025 4:11 PM EDT): I was able to discuss this patient's care with her primary surgeon, who after purusing the imaging as well as discussing the case with me, believes that this is to just be cellulitis. Not able to explain why the pain seems out of proportion to findings, but right now does not see a reason to treat for anything other than that. Though I suspect vancomycin alone would be adequate given the purulent exudate, I will treat more broadly initially especially given her diabetes. Will continue Vanco and Zosyn. Will need ongoing Dilaudid as well given the severe nature of her pain. Does not do well with oxycodone, tends to cause a lot of vomiting. Discussed case by phone with plastic surgeon Dr. Carlisle with patient and family present as well. He is ok with removing the drain in the leg once she is mobilised for much of the day, as sometimes output increases with mobilization. Drain in abdomen is under purview of Dr. Orellana. Assessment & Plan (03/24/2025 5:04 PM EDT): I was able to discuss this patient's care with her primary surgeon, who after [place] in the imaging as well as discussing the case with me, believes that this is to just be cellulitis. Not able to explain why the pain seems out of proportion to findings, but right now does not see a reason to treat for anything other than that. Though I suspect vancomycin alone would be adequate given the purulent exudate, I will treat more broadly initially especially given her diabetes. Will continue Vanco and Zosyn. Will need ongoing Dilaudid as well given the severe nature of her pain. Does not do well with oxycodone, tends to cause a lot of vomiting. Type 2 diabetes mellitus wit h hyperglycemia, with long-term current use of insulin 03/24/2025 Assessment & Plan (04/02/2025 5:11 PM EDT): -She was previously on glargine 16 units twice daily, Basal bolus insulin was adjusted and she will resume her previous glargine dosing at discharge Assessment & Plan (04/01/2025 4:56 PM EDT): -She was previously on glargine 16 units twice daily, Basal bolus insulin was adjusted and she will resume her previous glargine dosing at discharge Assessment & Plan (03/31/2025 9:11 PM EDT): -She was previously on glargine 16 units twice daily, Basal bolus insulin was adjusted and she will resume her previous glargine dosing at discharge Assessment & Plan (03/30/2025 6:01 PM EDT): -She was previously on glargine 16 units twice daily, evening dose of glargine held on 03/27 Increasing insulin as her oral intake is improved Assessment & Plan (03/29/2025 10:44 PM EDT): -She was previously on glargine 16 units twice daily, evening dose of glargine held on 03/27 Small increase in glargine Assessment & Plan (03/28/2025 5:15 PM EDT): -She was previously on glargine 16 units twice daily, evening dose of glargine held on 03/27 Would continue reduced dose glargine for now and has insulin sliding scale as needed Assessment & Plan (03/27/2025 1:01 PM EDT): Decrease glargine from 16 units bid to 8 units bid as NPO, cont insulin sliding scale Hold prandial insulin Assessment & Plan (03/26/2025 2:12 PM EDT): Cont basal bolus insulin, adjust as necessary as oral intake decreased Assessment & Plan (03/25/2025 4:11 PM EDT): Will use basal and bolus insulin with meals as well as a constant carbohydrate diet. Assessment & Plan (03/24/2025 5:04 PM EDT): Will use basal and bolus insulin with meals as well as a constant carbohydrate diet. Partial seizure disorder 03/24/2025 Assessment & Plan (04/02/2025 5:11 PM EDT): Continue keppra Assessment & Plan (04/01/2025 4:56 PM EDT): Continue keppra Assessment & Plan (03/31/2025 8:38 PM EDT): Continue keppra Assessment & Plan (03/30/2025 6:01 PM EDT): Continue keppra Assessment & Plan (03/29/2025 9:36 PM EDT): Continue keppra Assessment & Plan (03/28/2025 5:15 PM EDT): Continue keppra Assessment & Plan (03/27/2025 10:14 AM EDT): Continue keppra Assessment & Plan (03/26/2025 11:41 AM EDT): Continue keppra Assessment & Plan (03/25/2025 4:11 PM EDT): Continue keppra Assessment & Plan (03/24/2025 5:04 PM EDT): Continue kera History of blood clots 03/24/2025 Assessment & Plan (04/02/2025 5:11 PM EDT): Had multiple blood clots approximately 2 years ago, has been on Eliquis since. - Transiently on therapeutic lovenox during poor oral intake, concern for ileus, concern for need for procedures. Once oral intake improved, resumed eliquis. Assessment & Plan (04/01/2025 4:56 PM EDT): Had multiple blood clots approximately 2 years ago, has been on Eliquis since. - Transiently on therapeutic lovenox during poor oral intake, concern for ileus, concern for need for procedures. Once oral intake improved, resumed eliquis. Assessment & Plan (03/31/2025 9:11 PM EDT): Had multiple blood clots approximately 2 years ago, has been on Eliquis since. - Transiently on therapeutic lovenox during poor oral intake, concern for ileus, concern for need for procedures. Once oral intake improved, resumed eliquis. Assessment & Plan (03/30/2025 6:01 PM EDT): Had multiple blood clots approximately 2 years ago, has been on Eliquis since. - for now will use therapeutic lovenox in case procedure needed and in case absorption is not ideal currently - standing scale weight reassuring that current dosing is appropriate - may resume eliquis soon as oral intake has improved Assessment & Plan (03/29/2025 10:44 PM EDT): Had multiple blood clots approximately 2 years ago, has been on Eliquis since. - for now will use therapeutic lovenox in case procedure needed and in case absorption is not ideal currently - weight for dosing challenging, she isn't able to stand on scale and bed weights quite discrepant - at previous hospitalization her weight was 235 lb, but may have had change in weight since then - current bedscale weight is 199 lb? Assessment & Plan (03/28/2025 5:15 PM EDT): Had multiple blood clots approximately 2 years ago, has been on Eliquis since. - for now will use therapeutic lovenox in case procedure needed and in case absorption is not ideal currently - weight for dosing challenging, she isn't able to stand on scale and bed weights quite discrepant - at previous hospitalization her weight was 235 lb, but may have had change in weight since then - current bedscale weight is 199 lb? - see if PT OT can help her get standing scale weight Assessment & Plan (03/27/2025 10:14 AM EDT): Had multiple blood clots approximately 2 years ago, has been on Eliquis since. - for now will use therapeutic lovenox in case procedure needed and in case absorption is not ideal currently - weight for dosing challenging, she isn't able to stand on scale and bed weights quite discrepant - at previous hospitalization her weight was 235 lb, but may have had change in weight since then - current bedscale weight is 199 lb? - see if PT OT can help her get standing scale weight Assessment & Plan (03/26/2025 2:12 PM EDT): Had multiple blood clots approximately 2 years ago, has been on Eliquis since. - for now will use therapeutic lovenox in case procedure needed and in case absorption is not ideal currently Assessment & Plan (03/25/2025 4:11 PM EDT): Had multiple blood clots approximately 2 years ago, has been on Eliquis since. Will continue for now as there is no evidence that she will need any surgery immediately. Assessment & Plan (03/24/2025 5:04 PM EDT): Had multiple blood clots approximately 2 years ago, has been on Eliquis since. Will continue for now as there is no evidence that she will need any surgery immediately. 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 No ostomy output for several days and CT findings to suggest ileus. She tolerated some clear intake but ultimately had vomiting, treated with bowel rest. Eventually she passed significant hard pebble like stool and bowel function resumed and she was able to advance diet. Using senna, decreased opioids to avoid further complications. Assessment & Plan (04/01/2025 4:56 PM EDT): Was having partial ileus/constipation. No ostomy output for several days and CT findings to suggest ileus. She tolerated some clear intake but ultimately had vomiting, treated with bowel rest. Eventually she passed significant hard pebble like stool and bowel function resumed and she was able to advance diet. Using senna, decreased opioids to avoid further complications. Assessment & Plan (03/31/2025 9:11 PM EDT): Was having partial ileus/constipation. No ostomy output for several days and CT findings to suggest ileus. She tolerated some clear intake but ultimately had vomiting, treated with bowel rest. Eventually she passed significant hard pebble like stool and bowel function resumed and she was able to advance diet. Using senna, decreased opioids to avoid further complications. Assessment & Plan (03/30/2025 6:01 PM EDT): Moderate having partial ileus/constipation which is now resolved she is using senna and tolerating oral intake Assessment & Plan (03/29/2025 10:44 PM EDT): - having stool output, advanced diet, discussed food selection Using senna, stopped miralax, Assessment & Plan (03/28/2025 5:15 PM EDT): - see above Assessment & Plan (03/27/2025 12:59 PM EDT): - see above Assessment & Plan (03/26/2025 2:12 PM EDT): - partial ileus/developing or resolving ileus - has bowel sounds, passing some gas, tolerating some oral intake so not full ileus Assessment & Plan (03/25/2025 4:11 PM EDT): Patient states there has been no output from her stoma in 2 days, CT fortunately did not show obstruction but did show diffuse stool throughout the colon. Recommendation from surgeon was to use MiraLAX daily to ensure no constipation. Assessment & Plan (03/24/2025 5:04 PM EDT): Patient states there has been no output from her stoma in 2 days, CT fortunately did not show obstruction but did show diffuse stool throughout the colon. Recommendation from surgeon was to use MiraLAX to ensure no constipation. 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 [place] [address] Leydi Mendez PA-C Follow-up 04/25/2025 Telephone [facility] General & GI Surgery [address] [place] [id number] Li Celeste, pattern checker Care 04/22/2025 Orders Only [facility] General & GI Surgery [address] [place] [phone] John Coulter PA-C Anal cancer (Primary Dx) 04/16/2025 9:30 AM EDT [facility] [place] [facility] [address] [facility] [address] [place] [address] Henrry Patel MD [place], Zoe Silverio, [facility] Family history of gene mutation (Primary Dx) 04/14/2025 Orders Only [facility] General & GI Surgery [address] [place] [id number] Leydi Mendez PA-C Yeast infection (Primary Dx) 04/11/2025 11:00 AM EDT Office Visit [facility] Plastic Surgery [address] [facility] [address] [place] [address] Dereck Carlisle MD Anal cancer (Primary Dx) 04/11/2025 10:00 AM EDT Office Visit [facility] General & GI Surgery [address] [place] [id number] Leydi Mendez PA-C Anal cancer (Primary Dx) 04/01/2025 Procedure Pass [address] [address] 03/25/2025 Procedure Pass [address] [address] 03/24/2025 1:27 AM EDT - 04/03/2025 2:35 PM EDT Hospital Encounter [facility] [address] [address] Alisha Motley MD McKenna-Weiss, Eli, MD Hampson, Brian S, DO Kielbasa, Shasta A, MD Preston, Linda J, MD Discharge Disposition: [place] [facility] [place]/24/2025 Procedure Pass [facility], [facility] [address] [place] [address] 03/23/2025 7:54 AM EDT - 03/23/2025 11:59 PM EDT Hospital Encounter [facility] [address] [place] [address] Beth Mittal MD Discharge Disposition: Home or Self Care 03/23/2025 Transcribe Orders [facility] Specimen Processing [address] [place] [address] Beth Mittal MD Infection (Primary Dx) from Last 3 Months Family History Medical History Relation Comments Cancer Neg Hx Social History Tobacco Use Types Packs/Day Years Used Date Smoking Tobacco: Never Passive Smoke Exposure: Never Smokeless Tobacco: Never Tobacco Cessation:Counseling Given: [...] high school, GED, job training, learning the Ukrainian language, technical skills, or developing parenting skills)? [...] Orientation Straight 02/03/2025 8: 42 AM EDT Last Filed Vital Signs Vital Sign Reading Time Taken Comments Blood Pressure 135/65 04/11/2025 10:08 AM EDT Pulse 80 04/11/2025 10:08 AM EDT Temperature 36.8 C (98.2 F) 04/03/2025 7:30 AM EDT Respiratory Rate 20 04/11/2025 10:08 AM EDT Oxygen Saturation 99% 04/11/2025 10:08 AM EDT Inhaled Oxygen Concentration - - Weight 94.3 kg (208 lb) 04/11/2025 10:08 AM EDT Height 167.6 cm (5' 6 ) 04/11/2025 10:08 AM EDT Body Mass Index 33.57 04/11/2025 10:08 AM EDT Plan of Treatment Scheduled Procedures Name Priority Associated Diagnoses Date/Ti me RECONSTRUCTION PERINEAL Anal cancer Health Maintenance Due Date Last Done Comments DEPRESSION SCREENING 1972 HEPATITIS C SCREENING 1978 HIV ONE-TIME SCREENING (18-65 YEARS) 1978 ZOSTER VACCINES (1 of 2) 1979 COLOGUARD 2005 COLONOSCOPY 2005 FIT TEST 2005 FOBT 2005 VIRTUAL COLONOSCOPY 2005 RSV VACCINE (1 - Risk 50-74 years 1-dose series) 2010 PNEUMOCOCCAL VACCINES (50+ years) (2 of 2 - PCV) 05/27/2015 05/27/2014 DIABETIC EYE EXAM 03/07/2025 INFLUENZA VACCINE (#1) 2025 9, 08/17/2018, 08/05/2015, Additional history exists COVID-19 VACCINE (2024- season) 2025 06/25/2022, 06/25/2022, 05/14/2021, Additional history exists HEMOGLOBIN A1C 06/05/2025 03/05/2025, 12/25/2024 BLOOD PRESSURE 10/09/2025 04/11/2025 PAP SMEAR 12/19/2025 12/19/2022 CREATININE LEVEL 04/02/2026 04/02/2025, , 03/31/2025, Additional history exists POTASSIUM LEVEL 04/02/2026 04/02/2025, 03/08, 03/31/2025, Additional history exists MAMMOGRAM 10/05/2026 10/05/2024, 10/05/2024 Adult Td,Tdap Booster 04/05/2028 04/05/2018, 008 COLORECTAL CANCER SCREENING 01/17/2030 SIGMOIDOSCOPY 01/17/2030 01/17/2025 SMOKING STATUS SCREENING (Once After 26 Yrs) Completed 04/11/2025 HEPATITIS A VACCINES Aged Out No long er eligible based on patient's age to complete this topic HIB VACCINES Aged Out No longer eligi ble based on patient's age to complete this topic IPV VACCINES Aged Out No longer eligi ble based on patient's age to complete this topic MENINGOCOCCAL VACCINES (ACWY) Aged Out No longer eligible based on patient's age to complete this topic MENINGOCOCCAL VACCINES (B) Aged Out N o longer eligible based on patient's age to complete this topic Medical Devices Not on file Procedures Procedure Name Priority Date/Time Associated Diagnosis Comments POCT GLUCOSE Routine 04/03/2025 11:54 AM EDT POCT GLUCOSE Routine 04/03/2025 8:18 AM EDT POCT GLUCOSE Routine 04/02/2025 9:04 PM EDT POCT GLUCOSE Routine 04/02/2025 5:12 PM EDT POCT GLUCOSE Routine 04/02/2025 12:07 PM EDT US LOWER EXTREMITY NON-VASCULAR LIMITED (LEFT) Routine 04/02/2025 10:41 AM EDT BASIC METABOLIC PANEL (BMP) Routine 04/02/2025 9:36 AM EDT POCT GLUCOSE Routine 04/02/2025 8:13 AM EDT POCT GLUCOSE Routine 04/01/2025 8:[address] PELVIS WITH CONTRAST Routine 04/01/2025 5:51 PM EDT POCT GLUCOSE Routine 04/01/2025 5:28 PM EDT POCT GLUCOSE Routine 04/01/2025 12:13 PM EDT POCT GLUCOSE Routine 04/01/2025 8:09 AM EDT COMPREHENSIVE METABOLIC PANEL (CMP) Routine 04/01/2025 5:35 AM EDT CBC AND DIFFERENTIAL Routine 04/01/2025 5:35 AM EDT POCT GLUCOSE Routine 03/31/2025 8:18 PM EDT POCT GLUCOSE Routine 03/31/2025 5:23 PM EDT POCT GLUCOSE Routine 03/31/2025 12:07 PM EDT POCT GLUCOSE Routine 03/31/2025 8:41 AM EDT US ABDOMEN LIMITED SINGLE ORGAN Routine 03/31/2025 8:09 AM EDT COMPREHENSIVE METABOLIC PANEL (CMP) Routine 03/31/2025 6:58 AM EDT CBC AND DIFFERENTIAL Routine 03/31/2025 6:58 AM EDT POCT GLUCOSE Routine 03/30/2025 8:36 PM EDT POCT GLUCOSE Routine 03/30/2025 5:18 PM EDT POCT GLUCOSE Routine 03/30/2025 11:24 AM EDT COMPREHENSIVE METABOLIC PANEL (CMP) Routine 03/30/2025 9:11 AM EDT CBC AND DIFFERENTIAL Routine 03/30/2025 9:11 AM EDT POCT GLUCOSE Routine 03/30/2025 7:46 AM EDT POCT GLUCOSE Routine 03/29/2025 7:43 PM EDT POCT GLUCOSE Routine 03/29/2025 4:37 PM EDT POCT GLUCOSE Routine 03/29/2025 12:37 PM EDT POCT GLUCOSE Routine 03/29/2025 9:22 AM EDT POCT GLUCOSE Routine 03/29/2025 6:06 AM EDT CBC AND DIFFERENTIAL Routine 03/29/2025 6:03 AM EDT GGT (GAMMA GLUTAMYL TRANSFERASE) Routine 03/29/2025 6:03 AM EDT PHOSPHORUS Routine 03/29/2025 6:03 AM EDT COMPREHENSIVE METABOLIC PANEL (CMP) Routine 03/29/2025 6:03 AM EDT MAGNESIUM Routine 03/29/2025 6:03 AM EDT POCT GLUCOSE Routine 03/28/2025 11:19 PM EDT POCT GLUCOSE Routine 03/28/2025 6:01 PM EDT POCT GLUCOSE Routine 03/28/2025 11:57 AM EDT POCT GLUCOSE Routine 03/28/2025 8:07 AM EDT MAGNESIUM Routine 03/28/2025 5:30 AM EDT COMPREHENSIVE METABOLIC PANEL (CMP) Routine 03/28/2025 5:30 AM EDT CBC AND DIFFERENTIAL Routine 03/28/2025 5:30 AM EDT POCT GLUCOSE Routine 03/28/2025 5:19 AM EDT POCT GLUCOSE Routine 03/28/2025 12:15 AM EDT POCT GLUCOSE Routine 03/27/2025 8:35 PM EDT POCT GLUCOSE Routine 03/27/2025 8:23 PM EDT POCT GLUCOSE Routine 03/27/2025 5:09 PM EDT MRSA PCR SCREEN STAT 03/27/2025 4:02 PM EDT POCT GLUCOSE Routine 03/27/2025 12:34 PM EDT XR ABDOMEN 1 VIEW STAT 03/27/2025 12: 10 PM EDT POCT GLUCOSE Routine 03/27/2025 8:09 AM EDT PHOSPHORUS Routine 03/27/2025 5:21 AM EDT MAGNESIUM Routine 03/27/2025 5:21 AM EDT BASIC METABOLIC PANEL (BMP) Routine 03/27/2025 5:21 AM EDT CBC AND DIFFERENTIAL Routine 03/27/2025 5:21 AM EDT POCT GLUCOSE Routine 03/26/2025 7:56 PM EDT POCT GLUCOSE Routine 03/26/2025 4:15 PM EDT POCT GLUCOSE Routine 03/26/2025 12:01 PM EDT POCT GLUCOSE Routine 03/26/2025 7:37 AM EDT BASIC METABOLIC PANEL (BMP) Routine 03/26/2025 6:35 AM EDT CBC Routine 03/26/2025 6:35 AM EDT POCT GLUCOSE Routine 03/25/2025 10:[address] ABDOMEN/PELVIS WITH CONTRAST STAT 03/25/2025 10:18 PM EDT POCT GLUCOSE Routine 03/25/2025 8:22 PM EDT POCT GLUCOSE Routine 03/25/2025 5:00 PM EDT POCT GLUCOSE Routine 03/25/2025 11:58 AM EDT POCT GLUCOSE Routine 03/25/2025 10:37 AM EDT POCT GLUCOSE Routine 03/25/2025 8:14 AM EDT BASIC METABOLIC PANEL (BMP) Routine 03/25/2025 4:45 AM EDT CBC Routine 03/25/2025 4:45 AM EDT VANCOMYCIN, TROUGH Timed 03/25/2025 4: 45 AM EDT VANCOMYCIN, PEAK Timed 03/24/2025 8:48 PM EDT POCT GLUCOSE Routine 03/24/2025 8:30 PM EDT POCT GLUCOSE Routine 03/24/2025 4:21 PM EDT POCT GLUCOSE Routine 03/24/2025 11:35 AM EDT POCT GLUCOSE Routine 03/24/2025 8:04 AM EDT IP CONSULT TO WOUND NURSE Routine 03/24/2025 7:18 AM EDT XR CHEST PORTABLE Routine 03/24/2025 4:[address] ABDOMEN/PELVIS WITH CONTRAST Routine 03/24/2025 3:06 AM EDT PT-INR STAT 03/24/2025 2:48 AM EDT LACTIC ACID (LACTATE) STAT 03/24/2025 2:48 AM EDT LIPASE STAT 03/24/2025 2:48 AM EDT LFTS (HEPATIC PANEL) STAT 03/24/2025 2:48 AM EDT MAGNESIUM STAT 03/24/2025 2:48 AM EDT BASIC METABOLIC PANEL (BMP) STAT 03/24/2025 2:48 AM EDT CBC AND DIFFERENTIAL STAT 03/24/2025 2:48 AM EDT BLOOD CULTURE, ROUTINE STAT 2:48 AM EDT BLOOD CULTURE, ROUTINE STAT 2:48 AM EDT BASIC METABOLIC PANEL (BMP) Routine 03/23/2025 7:57 AM EDT Infection CBC AND DIFFERENTIAL Routine 03/23/2025 7:57 AM EDT Infection HEMOGLOBIN A1C Routine 03/05/2025 11:53 AM EDT Pre-op evaluation from Last 3 Months or Most Recently Relevant to Health Maintenance Results * (ABNORMAL) POCT Glucose (04/03/2025 11:54 AM EDT) Only the most recent of47 resultswithin the time period is included. [facility] Glucose, POCT 148(H) 70 - 100 mg/dL [facility] 04/03/2025 11:5 4 AM EDT 04/03/2025 12:20 PM EDT Lorenza Oh MD POINT OF CARE TEST ORDERABL ES Final Result [address] [address] * US LOWER EXTREMITY NON-VASCULAR LIMITED (LEFT) (04/02/2025 10:41 AM EDT) Anatomical Region Laterality Modality Hip Left, Thigh Left, Knee L eft, Leg Left, Ankle Left, Foot Left Ultrasound 04/02/2025 10:4 7 AM EDT Impressions 04/02/2025 10:49 AM EDT Left buttock subcutaneous edema with mild hyperemia. No discrete fluid collection. Narrative 04/02/2025 10:49 AM EDT US LOWER EXTREMITY NON-VASCULAR LIMITED (LEFT) Referring clinician's provided indication for this examination [facility]: Infection; Pain; Soft tissue. Concern for left buttock abscess. S/p surgery. Induration and purulent drainage to left buttoccks at site of previous drain. r/o abscess TECHNIQUE: Limited junior scale and color sonographic images of the left lower extremity were obtained. COMPARISON: CT PELVIS (GI) WITH CONTRAST FINDINGS: Targeted sonographic evaluation of the left buttock. Cutaneous edema with mild hyperemia. No discrete fluid collection. No soft tissue mass. Procedure Note Jan Haro MD - 04/02/2025 US LOWER EXTREMITY NON-VASCULAR LIMITED (LEFT) Referring clinician's provided indication for this examination in [facility]:Infection; Pain; Soft tissue. Concern for left buttock abscess. S/psurgery. Induration and purulent drainage to left buttoccks at site ofprevious drain. r/o abscess TECHNIQUE: Limited junior scale and color sonographic images of the leftlower extremity were obtained. COMPARISON: CT PELVIS (GI) WITH CONTRAST FINDINGS: Targeted sonographic evaluation of the left buttock. Cutaneous edema withmild hyperemia. No discrete fluid collection. No soft tissue mass. IMPRESSION: Left buttock subcutaneous edema with mild hyperemia. No discrete fluidcollection. Dre Riggs PA-C IMG US EXTREMITY Final R esult * (ABNORMAL) Basic metabolic panel (04/02/2025 9:36 AM EDT) Only the most recent of6 resultswithin the time period is included. SODIUM 137 133 - 146 mmol/L [facility] CHLORIDE 99 96 - 108 mmol/L [facility] POTASSIUM 3.4 3.3 - 5.1 mmol/L [facility] CO2 24 21 - 35 mmol/L [facility] BUN 6 6 - 19 mg/dL [facility] CREATININE 0.60 0.5 - 1.5 mg/dL [facility] GLUCOSE 162(H) 70 - 99 mg/dL [facility] CALCIUM 8.8 8.4 - 10.3 mg/dL [facility] EGFR 100 >59 mL/min/1.7 3m2 [facility] Comment:Estimated glomerular filtration rate calculated using the CKD-EPI refit equation. ANION GAP 17 10 - 20 mmol/L [facility] Blood 04/02/2025 9:36 AM EDT 04/02/2025 9:53 AM EDT us Lorenza Oh MD LAB BLOOD BKR ORDERABLES Fi nal Result [facility] [address] [place] [address] * CT PELVIS WITH CONTRAST (04/01/2025 5:51 PM EDT) Anatomical Region Laterality Modality Pelvis Computed Tomogra phy 04/01/2025 6:02 PM EDT Impressions 04/01/2025 6:[address] abdomen pelvis 03/25/2025: 1. Similar postsurgical changes related to abdominoperineal resection with omental flap and gracilis flap reconstruction. 2. Small tract extending from the left perineal surgical site into the left gluteal soft tissues which is only partially imaged. 3. No organized pelvic collection. 4. Interval removal of right lower quadrant percutaneous drainage catheter with unchanged trace unorganized fluid surrounding the omental flap. Narrative 04/01/2025 6:[address] PELVIS (GI) WITH CONTRAST Referring clinician's provided indication for this examination in Epic: *Abnormal imaging; exudate from buttock surgical site on left TECHNIQUE: Multidetector-row CT of the pelvis was performed after administration of intravenous contrast using tailored dose modulation techniques. Images were reconstructed in the axial, coronal, and sagittal planes. COMPARISON: CT ABDOMEN/PELVIS WITH CONTRAST FINDINGS: Bowel: Post surgical changes related to abdominoperineal resection with left lower quadrant end colostomy and omental pedicle flap reconstruction. Peritoneum/Retroperitoneum: Interval removal of a right lower quadrant percutaneous drainage catheter with tract seen from the subcutaneous tissues of the right lower quadrant extending to the right hemipelvis. Similar trace unorganized fluid surrounding the omental flap. Fat stranding is again seen throughout the pelvis. Lymph Nodes: No lymphadenopathy. Pelvic Organs/Bladder: No mass. Anteverted uterus. Normal urinary bladder. Vessels: No abdominal aortic aneurysm. Bones/Soft Tissues: No destructive osseous lesions. Postsurgical changes of the perineum with Gracilis flap reconstruction which extends into the right thigh. There is a small tract extending from the left perineum surgical site into the left gluteal soft tissues which is only partially imaged (6:613). Edema in the gluteal soft tissues bilaterally. Surgical changes of the anterior abdominal wall with overlying skin rachid. Interval improvement in soft tissue edema in the right lateral abdominal wall. Procedure Note Jane Delarosa MD - 04/01/2025 CT PELVIS (GI) WITH CONTRAST Referring clinician's provided indication for this examination in Epic:*Abnormal imaging; exudate from buttock surgical site on left TECHNIQUE: Multidetector-row CT of the pelvis was performed afteradministration of intravenous contrast using tailored dose modulationtechniques. Images were reconstructed in the axial, coronal, and sagittalplanes. COMPARISON: CT ABDOMEN/PELVIS WITH CONTRAST FINDINGS: Bowel: Post surgical changes related to abdominoperineal resection withleft lower quadrant end colostomy and omental pedicle flapreconstruction. Peritoneum/Retroperitoneum: Interval removal of a right lower quadrantpercutaneous drainage catheter with tract seen from the subcutaneoustissues of the right lower quadrant extending to the right hemipelvis.Similar trace unorganized fluid surrounding the omental flap. Fatstranding is again seen throughout the pelvis. Lymph Nodes: No lymphadenopathy. Pelvic Organs/Bladder: No mass. Anteverted uterus. Normal urinarybladder. Vessels: No abdominal aortic aneurysm. Bones/Soft Tissues: No destructive osseous lesions. Postsurgical changesof the perineum with Gracilis flap reconstruction which extends into theright thigh. There is a small tract extending from the left perineumsurgical site into the left gluteal soft tissues which is only partiallyimaged (6:613). Edema in the gluteal soft tissues bilaterally. Surgical changes of the anterior abdominal wall with overlying skinstaples. Interval improvement in soft tissue edema in the right lateralabdominal wall. IMPRESSION: Since CT abdomen pelvis 03/25/2025: 1. Similar postsurgical changes related to abdominoperineal resectionwith omental flap and gracilis flap reconstruction. 2. Small tract extending from the left perineal surgical site into theleft gluteal soft tissues which is only partially imaged. 3. No organized pelvic collection. 4. Interval removal of right lower quadrant percutaneous drainagecatheter with unchanged trace unorganized fluid surrounding the omentalflap. Lorenza Oh MD IMG CT XSPECIALTY ORDERABLE S Final Result * (ABNORMAL) Comprehensive metabolic panel (04/01/2025 5:35 AM EDT) Only the most recent of5 resultswithin the time period is included. SODIUM 135 133 - 146 mmol/L [facility] POTASSIUM 2.9(L) 3.3 - 5.1 mmol/L [facility] CHLORIDE 97 96 - 108 mmol/L [facility] CO2 24 21 - 35 mmol/L [facility] BUN 7 6 - 19 mg/dL [facility] CREATININE 0.50 0.5 - 1.5 mg/dL [facility] GLUCOSE 166(H) 70 - 99 mg/dL [facility] ALBUMIN 3.0(L) 3.9 - 4.8 g/dL [facility] TOTAL PROTEIN 6.4(L) 6.5 - 8.0 g/dL [facility] CALCIUM 8.3(L) 8.4 - 10.3 mg/dL [facility] ALKALINE PHOSPHATASE 157(H) 39 - 117 U/L [facility] TOTAL BILIRUBIN 0.3 0.0 - 1.2 mg/dL [facility] AST 12 0 - 37 U/L [facility] ALT 11 0 - 40 U/L [facility] GLOBULIN 3.4 1 - 4.8 g/dL [facility] EGFR 105 >59 mL/min/1.7 3m2 [facility] Comment:Estimated glomerular filtration rate calculated using the CKD-EPI refit equation. ANION GAP 17 10 - 20 mmol/L [facility] Blood 04/01/2025 5:35 AM EDT 04/01/2025 6:15 AM EDT us Nannette Lazaro MD LAB BLOOD BKR ORDERABLES Fi nal Result [facility] [address] [place] [address] * (ABNORMAL) CBC and differential (04/01/2025 5:35 AM EDT) Only the most recent of8 resultswithin the time period is included. WBC 6.06 4.00 - 11.00 K/uL [facility] RBC 3.07(L) 4.00 - 5.20 M/uL [facility] HGB 9.3(L) 12.0 - 16.0 g/dL [facility] HCT 28.2(L) 36.0 - 46.0 % [facility] PLT 353 150 - 450 K/uL [facility] MCV 91.9 80.0 - 100.0 fL [facility] MCH 30.3 27.0 - 31.0 pg [facility] MCHC 33.0 32.0 - 36.0 g/dL [facility] RDW 12.8 11.5 - 14.5 % [facility] MPV 9.2 8.4 - 12.0 fL [facility] NRBC 0.00 0.00 /100 WBCs [facility] ABSOLUTE NRBC 0.00 0.00 K/uL [facility] DIFF [employer] [facility] NEUTS 73.1 48.0 - 76.0 % [facility] LYMPHS 13.2(L) 18.0 - 41.0 % [facility] MONOS 7.8 4.0 - 11.0 % [facility] EOS 3.6 0.0 - 5.0 % [facility] BASOS 0.2 0.0 - 1.5 % [facility] Granulocytes, immature (%) 2.1(H) 0.0 - 0.9 % [facility] Comment:CONSISTENT WITH PREV IOUS RESULTS ABSOLUTE NEUTS 4.43 1.92 - 7.60 K/uL [facility] ABSOLUTE LYMPHS 0.80 0.72 - 4.10 K/uL [facility] ABSOLUTE MONOS 0.47 0.16 - 1.10 K/uL [facility] ABSOLUTE EOS 0.22 0.00 - 0.50 K/uL [facility] ABSOLUTE BASOS 0.01 0.00 - 0.15 K/uL [facility] Granulocytes, immature 0.13(H) 0.00 - 0.09 K/uL [facility] Blood 04/01/2025 5:35 AM EDT 04/01/2025 6:15 AM EDT us Nannette Lazaro MD LAB BLOOD BKR ORDERABLES Fi nal Result [address] [address] * US ABDOMEN LIMITED SINGLE ORGAN (03/31/2025 8:09 AM EDT) Anatomical Region Laterality Modality Abdomen Ultrasound 03/31/2025 8:51 AM EDT Impressions 03/31/2025 9:04 AM EDT 1. Postsurgical changes status post cholecystectomy. No biliary obstruction. 2. There is minimally increased hepatic echogenicity, likely representing fatty infiltration. Narrative 03/31/2025 9:04 AM EDT US ABDOMEN LIMITED ONE OR MORE ORGANS Referring clinician's provided indication for this examination [facility]: abnormal hepatic function tests; elevated alk phos TECHNIQUE: US Abdominal limited one or more organs. COMPARISON: CT ABDOMEN/PELVIS WITH CONTRAST FINDINGS: Technically difficult examination due to limited sonographic windows. Liver: No focal lesions. Minimally increased hepatic echogenicity. Main Portal Vein: Patent with normal direction of flow. Gallbladder: Surgically absent. Biliary: No intrahepatic or extrahepatic biliary ductal dilatation. The common bile duct measures 6 mm. Procedure Note Suzan Brambila MD - 03/31/2025 US ABDOMEN LIMITED ONE OR MORE ORGANS Referring clinician's provided indication for this examination in [facility]:abnormal hepatic function tests; elevated alk phos TECHNIQUE: US Abdominal limited one or more organs. COMPARISON: CT ABDOMEN/PELVIS WITH CONTRAST FINDINGS: Technically difficult examination due to limited sonographic windows. Liver: No focal lesions. Minimally increased hepatic echogenicity. Main Portal Vein: Patent with normal direction of flow. Gallbladder: Surgically absent. Biliary: No intrahepatic or extrahepatic biliary ductal dilatation. The common bile duct measures 6 mm. IMPRESSION: 1. Postsurgical changes status post cholecystectomy. No biliaryobstruction. 2. There is minimally increased hepatic echogenicity, likely representingfatty infiltration. Nannette Lazaro MD IMG US ABDOMEN Final Resul t * (ABNORMAL) GGT (Gamma glutamyl transferase) (03/29/2025 6:03 AM EDT) GGT 155(H) 7 - 33 U/L [facility] Blood 03/29/2025 6:03 AM EDT 03/29/2025 6:29 AM EDT Nannette Lazaro MD LAB BLOOD BKR ORDERABLES Fi nal Result Performing Organization Address City/[facility]/ZIP Co de Phone Number [address] [address] * (ABNORMAL) Phosphorus (03/29/2025 6:03 AM EDT) Only the most recent of2 resultswithin the time period is included. PHOSPHORUS 2.6(L) 2.7 - 4.5 mg/dL [facility] Blood 03/29/2025 6:03 AM EDT 03/29/2025 6:29 AM EDT Nannette Lazaro MD LAB BLOOD BKR ORDERABLES Fi nal Result [address] [address] * Magnesium (03/29/2025 6:03 AM EDT) Only the most recent of4 resultswithin the time period is included. MAGNESIUM 1.9 1.6 - 2.6 mg/dL [facility] Blood 03/29/2025 6:03 AM EDT 03/29/2025 6:29 AM EDT Nannette Lazaro MD LAB BLOOD BKR ORDERABLES Fi nal Result Performing Organization Address [facility] Co de Phone Number [address] [address] * MRSA PCR SCREEN (03/27/2025 4:02 PM EDT) Pathologist [facility] MRSA PCR SCREEN Negative Negative [facility] Comment:The Xpert MRSA Assay is intended to aid in the prevention and control of MRSA infections in healthcare settings. The assay is not intended to diagnose nor to guide or monitor treatment for MRSA infections. 03/27/2025 4:02 PM EDT 03/27/2025 5:43 PM EDT Nannette Lazaro MD LAB GENERAL ORDERABLES Ana l Result Performing Organization Address [facility] de Phone Number [address] [address] * XR ABDOMEN 1 VIEW (03/27/2025 12:10 PM EDT) Anatomical Region Laterality Modality Abdomen Computed Radiogr aphy 03/27/2025 12:1 3 PM EDT Impressions 03/27/2025 12:17 PM EDT 1. No evidence of obstruction. No abnormally dilated loops of small bowel to suggest ileus. Narrative 03/27/2025 12:17 PM EDT XR ABDOMEN 1 VIEW Referring clinician's provided indication for this examination in Epic: Nausea/vomiting; ? Obstruction or ileus COMPARISON: Abdomen/pelvis CT 03/25/2025, 03/24/2025, abdomen radiograph 09/28/2023 FINDINGS: Tubes/Lines: Retained densities within the cecum and stomach, likely ingested pill. Surgical rachid in place. There is a drainage catheter overlying the right lower quadrant. Bowel: No pathologically distended loops of small bowel. Small to moderate volume fecal burden within the colon. Multilevel spondylosis. Degenerative changes of the hips bilaterally. Procedure Note Suzan Brambila MD - 03/27/2025 XR ABDOMEN 1 VIEW Referring clinician's provided indication for this examination in Epic:Nausea/vomiting; ? Obstruction or ileus COMPARISON: Abdomen/pelvis CT 03/25/2025, 03/24/2025, abdomen radiograph09/28/2023 FINDINGS: Tubes/Lines: Retained densities within the cecum and stomach, likelyingested pill. Surgical rachid in place. There is a drainage catheteroverlying the right lower quadrant. Bowel: No pathologically distended loops of small bowel. Small to moderatevolume fecal burden within the colon. Multilevel spondylosis. Degenerative changes of the hips bilaterally. IMPRESSION: 1. No evidence of obstruction. No abnormally dilated loops of small bowelto suggest ileus. us Nannette Lazaro MD IMG XR ABDOMEN Final Resul t * (ABNORMAL) CBC (03/26/2025 6:35 AM EDT) Only the most recent of2 resultswithin the time period is included. WBC 9.71 4.00 - 11.00 K/uL [facility] RBC 3.15(L) 4.00 - 5.20 M/uL [facility] HGB 9.8(L) 12.0 - 16.0 g/dL [facility] HCT 29.5(L) 36.0 - 46.0 % [facility] PLT 395 150 - 450 K/uL [facility] MCV 93.7 80.0 - 100.0 fL [facility] MCH 31.1(H) 27.0 - 31.0 pg [facility] MCHC 33.2 32.0 - 36.0 g/dL [facility] RDW 12.7 11.5 - 14.5 % [facility] MPV 8.7 8.4 - 12.0 fL [facility] NRBC 0.00 0.00 /100 WBCs [facility] ABSOLUTE NRBC 0.00 0.00 K/uL [facility] Blood 03/26/2025 6:35 AM EDT 03/26/2025 6:58 AM EDT us Lorenza Oh MD LAB BLOOD BKR ORDERABLES Fi nal Result [facility] [address] [place] [address] * CT ABDOMEN/PELVIS WITH CONTRAST (03/25/2025 10:18 PM EDT) Anatomical Region Laterality Modality Abdomen, Pelvis Computed Tomogra phy 03/26/2025 1:49 AM EDT Impressions 03/26/2025 6:47 AM EDT 1. Mildly prominent loop of small bowel in the mid abdomen with air-fluid level and fecal-like contents within the adjacent small bowel loop. Gradual transition to normal caliber loops more distally. Findings are suggestive of ileus. 2. Intervally increased soft tissue edema at the right lateral abdominal wall surrounding the percutaneous drainage catheter and within the muscular wall layers. No drainable fluid collection. 3. Mild bilateral hydronephrosis, increased from prior. No obstructing calculus. 4. Similar 8 mm indeterminate density left adrenal gland nodule as compared to the outside prior CT of March 2024 I agree with the preliminary interpretation from Dr. Arteaga, as below. PRELIMINARY RADIOLOGY INTERPRETATION * Increasing fecal impaction within the proximal colon. Fecal-like contents and gas fluid levels within nondilated small bowel, consistent with ileus. No small bowel obstruction at this time. * Similar postsurgical changes relating to abdominoperineal resection and omental pedicle flap. * Increasing soft tissue edema along the right lateral abdominal wall, worst about the insertion site of the percutaneous drainage catheter, which may reflect mild inflammatory changes. No drainable fluid collection. Narrative 03/26/2025 6:[address] ABDOMEN/PELVIS WITH CONTRAST Referring clinician's provided indication for this examination in Epic: * Bowel obstruction suspected; no ostomy output 5 days, worsening pain RLQ TECHNIQUE: Multidetector-row CT of the abdomen and pelvis was performed after administration of intravenous contrast using tailored dose modulation techniques. Images were reconstructed in the axial, coronal, and sagittal planes. COMPARISON: CT ABDOMEN/PELVIS WITH CONTRAST FINDINGS: Lower Chest: Bibasilar increased prior. No consolidation or pleural effusions. Liver: Normal attenuation. No focal lesions. Biliary: Cholecystectomy. No biliary ductal dilatation. Spleen: No splenomegaly or focal lesions. Pancreas: Pancreatic lipoatrophy. No masses or ductal dilatation. Adrenal Glands: There is a similar 8 mm indeterminate density left adrenal gland nodule as compared to the outside prior CT of March 2024 Kidneys/Ureters: Subcentimeter hypodense renal lesions, too small to characterize. Mild bilateral hydronephrosis, increased from prior. No obstructing calculus. Bowel: Redemonstration of postsurgical changes status post abdominoperitoneal resection and omental pedicle flap reconstruction with left lower quadrant colostomy. A large volume of formed stool is present within the colon proximally, increased from prior. There is a mildly prominent loop of small bowel in the mid abdomen with air-fluid level. Fecal-like contents are demonstrated within the adjacent mildly prominent small bowel loop. There is gradual transition to normal caliber loops more distally. Normal caliber loops are also demonstrated more proximally. Small hiatal hernia. No distention or wall thickening. Peritoneum/Retroperitoneum: Right lower quadrant surgical drain is again demonstrated with tip similarly positioned at the right hemipelvis. Stranding and trace fluid is again present throughout the abdomen and pelvis again most concentrated along the surgical drain. No focal fluid collection demonstrated. Lymph Nodes: No lymphadenopathy. Pelvic Organs/Bladder: The urinary bladder is physiologically distended. No mural thickening. Vessels: No abdominal aortic aneurysm. Bones/Soft Tissues: There is intervally increased soft tissue edema at the right lateral abdominal wall surrounding the percutaneous drainage catheter and within the muscular wall layers. No drainable fluid collection. Procedure Note Polina Brambila MD - 03/26/2025 CT ABDOMEN/PELVIS WITH CONTRAST Referring clinician's provided indication for this examination [facility]: *Bowel obstruction suspected; no ostomy output 5 days, worsening pain RLQ TECHNIQUE: Multidetector-row CT of the abdomen and pelvis was performedafter administration of intravenous contrast using tailored dosemodulation techniques. Images were reconstructed in the axial, coronal,and sagittal planes. COMPARISON: CT ABDOMEN/PELVIS WITH CONTRAST FINDINGS: Lower Chest: Bibasilar increased prior. No consolidation or pleuraleffusions. Liver: Normal attenuation. No focal lesions. Biliary: Cholecystectomy. No biliary ductal dilatation. Spleen: No splenomegaly or focal lesions. Pancreas: Pancreatic lipoatrophy. No masses or ductal dilatation. Adrenal Glands: There is a similar 8 mm indeterminate density left adrenalgland nodule as compared to the outside prior CT of March 2024 Kidneys/Ureters: Subcentimeter hypodense renal lesions, too small tocharacterize. Mild bilateral hydronephrosis, increased from prior. Noobstructing calculus. Bowel: Redemonstration of postsurgical changes status postabdominoperitoneal resection and omental pedicle flap reconstruction withleft lower quadrant colostomy. A large volume of formed stool is presentwithin the colon proximally, increased from prior. There is a mildlyprominent loop of small bowel in the mid abdomen with air-fluid level.Fecal-like contents are demonstrated within the adjacent mildly prominentsmall bowel loop. There is gradual transition to normal caliber loops moredistally. Normal caliber loops are also demonstrated more proximally.Small hiatal hernia. No distention or wall thickening. Peritoneum/Retroperitoneum: Right lower quadrant surgical drain is againdemonstrated with tip similarly positioned at the right hemipelvis.Stranding and trace fluid is again present throughout the abdomen andpelvis again most concentrated along the surgical drain. No focal fluidcollection demonstrated. Lymph Nodes: No lymphadenopathy. Pelvic Organs/Bladder: The urinary bladder is physiologically distended.No mural thickening. Vessels: No abdominal aortic aneurysm. Bones/Soft Tissues: There is intervally increased soft tissue edema at theright lateral abdominal wall surrounding the percutaneous drainagecatheter and within the muscular wall layers. No drainable fluidcollection. IMPRESSION: 1. Mildly prominent loop of small bowel in the mid abdomen with air-fluidlevel and fecal-like contents within the adjacent small bowel loop.Gradual transition to normal caliber loops more distally. Findings aresuggestive of ileus. 2. Intervally increased soft tissue edema at the right lateral abdominalwall surrounding the percutaneous drainage catheter and within themuscular wall layers. No drainable fluid collection. 3. Mild bilateral hydronephrosis, increased from prior. No obstructingcalculus. 4. Similar 8 mm indeterminate density left adrenal gland nodule ascompared to the outside prior CT of March 2024 I agree with the preliminary interpretation from Dr. Arteaga, as below. PRELIMINARY RADIOLOGY INTERPRETATION * Increasing fecal impaction within the proximal colon. Fecal-likecontents and gas fluid levels within nondilated small bowel, consistentwith ileus. No small bowel obstruction at this time. * Similar postsurgical changes relating to abdominoperineal resection andomental pedicle flap. * Increasing soft tissue edema along the right lateral abdominal wall,worst about the insertion site of the percutaneous drainage catheter,which may reflect mild inflammatory changes. No drainable fluidcollection. Dena Jimenez MD IMG CT ABD/PELVIS Final Res ult * (ABNORMAL) Vancomycin, trough (03/25/2025 4:45 AM EDT) VANCOMYCIN,TRO UGH 8.8(L) 10.0 - 20.0 ug/mL [facility] Comment: Interpretation: Therapeutic Range: 10.0 - 20.0 ug/ml. Toxic: Greater than 30.0 ug/ml. Blood 03/25/2025 4:45 AM EDT 03/25/2025 4:56 AM EDT Lorenza Oh MD LAB BLOOD BKR ORDERABLES Fi nal Result [facility] [address] [place] [address] * (ABNORMAL) Vancomycin, peak (03/24/2025 8:48 PM EDT) VANCOMYCIN,PEA K 23.6(L) 30.0 - 40.0 ug/mL [facility] Comment: Interpretation: Therapeutic Range: 30 - 40 ug/ml. Toxic: Greater than or equal to 50 ug/ml. Blood 03/24/2025 8:48 PM EDT 03/24/2025 8:54 PM EDT us Lorenza Oh MD LAB BLOOD ORDERABLES Final Result [address] [address] * (ABNORMAL) POCT Glucose (03/24/2025 8:30 PM EDT) Glucose 136(A) 70 - 100 mg/dL 03/24/2025 8:30 PM EDT us Lorenza Oh MD LAB POCT ENTER/EDIT ORDERAB LES Final Result * XR Chest Portable (03/24/2025 4:05 AM EDT) Anatomical Region Laterality Modality Chest Computed Radiogr aphy 03/24/2025 5:40 AM EDT Impressions 03/24/2025 6:29 AM EDT No focal consolidation. ATTESTATION: I, Beni Rudolph as teaching physician, have reviewed the images for this case and if necessary edited the report originally created by Yuliana Dumont. Narrative 03/24/2025 6:29 AM EDT XR CHEST PORTABLE Referring clinician's provided indication for this examination in [facility]: Hypoxia COMPARISON: CT CHEST OUTSIDE (NO INTERPRETATION) FINDINGS: Devices/Tubes/Lines: None. Lungs: Low lung volumes with bronchovascular crowding and chronic elevation right hemidiaphragm. No focal consolidation or pulmonary edema. Streaky right midlung subsegmental atelectasis. Pleura: No pleural effusion or pneumothorax. Heart/Mediastinum: Normal heart and mediastinum. Bones/Soft Tissues: No significant abnormality. Procedure Note Beni Rudolph MD - 03/24/2025 XR CHEST PORTABLE Referring clinician's provided indication for this examination in [facility]:Hypoxia COMPARISON: CT CHEST OUTSIDE (NO INTERPRETATION) FINDINGS: Devices/Tubes/Lines: None. Lungs: Low lung volumes with bronchovascular crowding and chronicelevation right hemidiaphragm. No focal consolidation or pulmonary edema.Streaky right midlung subsegmental atelectasis. Pleura: No pleural effusion or pneumothorax. Heart/Mediastinum: Normal heart and mediastinum. Bones/Soft Tissues: No significant abnormality. IMPRESSION: No focal consolidation. ATTESTATION: I, Beni Rudolph as teaching physician, have reviewed theimages for this case and if necessary edited the report originally createdby Yuliana Dumont. us Alisha Motley MD IMG XR CHEST Final Result * CT ABDOMEN/PELVIS WITH CONTRAST (03/24/2025 3:06 AM EDT) Anatomical Region Laterality Modality Abdomen, Pelvis Computed Tomogra phy 03/24/2025 4:57 AM EDT Impressions 03/24/2025 5:16 AM EDT 1. Postsurgical changes of abdominoperineal resection with right lower quadrant surgical drain in place. 2. Fat stranding/trace fluid in the right lower quadrant/pelvis which appears centered around the drain, correlate with drain output. No organized drainable fluid collection. 3. Skin thickening and subcutaneous fat stranding/edema in the right lung abdominal wall extending more superiorly than expected from the level of the drain, concerning for superimposed soft tissue infection. No drainable fluid collection. Narrative 03/24/2025 5:[address] ABDOMEN/PELVIS WITH CONTRAST Referring clinician's provided indication for this examination in Epic: * Abdominal abscess/infection suspected TECHNIQUE: Multidetector-row CT of the abdomen and pelvis was performed after administration of intravenous contrast using tailored dose modulation techniques. Images were reconstructed in the axial, coronal, and sagittal planes. COMPARISON: None FINDINGS: Lower Chest: Right lower lobe subsegmental atelectasis. Liver: No suspicious lesions. Biliary: Cholecystectomy. No biliary ductal dilatation. Pancreas: No ductal dilatation or peripancreatic inflammation. Fatty atrophy. Spleen: No suspicious lesions. Bowel: Postsurgical changes of abdominoperineal resection flap reconstruction and left lower quadrant and colostomy. No bowel obstruction. Colonic diverticulosis, without gross diverticulitis. Nondilated appendix. Adrenal Glands: No suspicious nodules. Kidneys/Ureters: No obstructing stones or hydronephrosis. No suspicious mass. Pelvic Organs/Bladder: No suspicious lesion within limits of CT. Peritoneum/Retroperitoneum: Right lateral lower quadrant percutaneous surgical drain in place, with tip in the right hemipelvis. Fat stranding and trace fluid throughout the pelvis and right hemiabdomen, most conspicuous around the surgical drain with mild peritoneal thickening adjacent to the drain. No drainable fluid collection Lymph Nodes: No suspicious lymphadenopathy by CT size criteria. Vessels: Aortic atherosclerosis. No aortic aneurysm. Bones/Soft Tissues: Mild multilevel degenerative changes of the spine. Central midline laparotomy incision with skin rachid in place. Small fat-containing umbilical hernia. Left lower quadrant colostomy with minimal stranding in the fat in the inferior ostomy, which may be postsurgical. Right lateral lower quadrant percutaneous surgical drain in place. Right abdominal skin thickening and subcutaneous soft tissue swelling/edema extending superiorly, greater than expected. Procedure Note Beni Rudolph MD - 03/24/2025 CT ABDOMEN/PELVIS WITH CONTRAST Referring clinician's provided indication for this examination in Epic: *Abdominal abscess/infection suspected TECHNIQUE: Multidetector-row CT of the abdomen and pelvis was performedafter administration of intravenous contrast using tailored dosemodulation techniques. Images were reconstructed in the axial, coronal,and sagittal planes. COMPARISON: None FINDINGS: Lower Chest: Right lower lobe subsegmental atelectasis. Liver: No suspicious lesions. Biliary: Cholecystectomy. No biliary ductal dilatation. Pancreas: No ductal dilatation or peripancreatic inflammation. Fattyatrophy. Spleen: No suspicious lesions. Bowel: Postsurgical changes of abdominoperineal resection flapreconstruction and left lower quadrant and colostomy. No bowelobstruction. Colonic diverticulosis, without gross diverticulitis.Nondilated appendix. Adrenal Glands: No suspicious nodules. Kidneys/Ureters: No obstructing stones or hydronephrosis. No suspiciousmass. Pelvic Organs/Bladder: No suspicious lesion within limits of CT. Peritoneum/Retroperitoneum: Right lateral lower quadrant percutaneoussurgical drain in place, with tip in the right hemipelvis. Fat strandingand trace fluid throughout the pelvis and right hemiabdomen, mostconspicuous around the surgical drain with mild peritoneal thickeningadjacent to the drain. No drainable fluid collection Lymph Nodes: No suspicious lymphadenopathy by CT size criteria. Vessels: Aortic atherosclerosis. No aortic aneurysm. Bones/Soft Tissues: Mild multilevel degenerative changes of the spine.Central midline laparotomy incision with skin rachid in place. Smallfat-containing umbilical hernia. Left lower quadrant colostomy withminimal stranding in the fat in the inferior ostomy, which may bepostsurgical. Right lateral lower quadrant percutaneous surgical drain in place. Rightabdominal skin thickening and subcutaneous soft tissue swelling/edemaextending superiorly, greater than expected. IMPRESSION: 1. Postsurgical changes of abdominoperineal resection with right lowerquadrant surgical drain in place. 2. Fat stranding/trace fluid in the right lower quadrant/pelvis whichappears centered around the drain, correlate with drain output. Noorganized drainable fluid collection. 3. Skin thickening and subcutaneous fat stranding/edema in the right lungabdominal wall extending more superiorly than expected from the level ofthe drain, concerning for superimposed soft tissue infection. No drainablefluid collection. Alisha Motley MD IMG CT ABD/PELVIS Final Resu lt * Blood Culture, Routine (03/24/2025 2:48 AM EDT) Only the most recent of2 resultswithin the time period is included. Special Requests None 03/24/2025 1:54 AM EDT [facility] BLOOD CULTURE NO GROWTH 5 DAYS 03/29/2025 3:13 AM EDT [facility] Blood (Blood) 03/24/2025 2:4 8 AM EDT 03/24/2025 3:01 AM EDT us Alisha Motley MD LAB MICROBIOLOGY CULTURE ORD ERABLES Final Result [facility] [address], [place] [id number] * (ABNORMAL) LFTs (hepatic panel) (03/24/2025 2:48 AM EDT) ALKALINE PHOSPHATASE 177(H) 39 - 117 U/L [facility] TOTAL BILIRUBIN 0.5 0.0 - 1.2 mg/dL [facility] DIRECT BILIRUBIN 0.2 0.0 - 0.2 mg/dL [facility] Bilirubin (Indirect) 0.3 0 - 1.5 mg/dL [facility] AST 57(H) 0 - 37 U/L [facility] ALT 44(H) 0 - 40 U/L [facility] TOTAL PROTEIN 7.1 6.5 - 8.0 g/dL [facility] ALBUMIN 3.3(L) 3.9 - 4.8 g/dL [facility] GLOBULIN 3.8 1 - 4.8 g/dL [facility] A/G Ratio 0.87(L) 1.00 - 4.80 RATIO [facility] Blood 03/24/2025 2:48 AM EDT 03/24/2025 2:59 AM EDT Alisha Motley MD LAB BLOOD BKR ORDERABLES Fin al Result Performing Organization Address City/[facility] Co de Phone Number [address] [address] * (ABNORMAL) PT-INR (03/24/2025 2:48 AM EDT) PT 18.8(H) 10.2 - 12.9 sec [facility] INR 1.5(H) 0.9 - 1.1 [facility] Comment:Therapeutic range fo r oral Vitamin K antagonists: 2.0-3.5 Blood 03/24/2025 2:48 AM EDT 03/24/2025 2:59 AM EDT Alisha Motley MD LAB BLOOD BKR ORDERABLES Fin al Result Performing Organization Address City/[facility]/ZIP Co de Phone Number [address] [phone] * Lipase (03/24/2025 2:48 AM EDT) LIPASE 22 16 - 63 U/L [facility] Blood 03/24/2025 2:48 AM EDT 03/24/2025 2:59 AM EDT Alisha Motley MD LAB BLOOD BKR ORDERABLES Fin al Result Performing Organization Address City/[facility]/ZIP Co de Phone Number [address] [address] * Lactate (03/24/2025 2:48 AM EDT) LACTATE 1.05 0.50 - 2.20 mmol/L [facility] Blood 03/24/2025 2:48 AM EDT 03/24/2025 2:59 AM EDT Alisha Motley MD LAB BLOOD BKR ORDERABLES Fin al Result Performing Organization Address [facility] Co de Phone Number [address] [address] * (ABNORMAL) Hemoglobin A1c (03/05/2025 11:53 AM EDT) HEMOGLOBIN A1C 9.6(H) 4.2 - 5.6 % [facility] Comment: HbA1c levels 5.7-6.4% represent pre-diabetes, indicating impaired glucose control and an increased risk of developing diabetes. The diagnostic HbA1c level for diabetes is 6.5% or greater. HbA1c is performed by the Cheryle Beba-quant immunoassay method which does not detect (incidental) hemoglobin variants. Hemoglobin electrophoresis should be ordered in patients with suspected hemoglobinopathies. CALC MEAN BLD GLUC 228 mg/dL [facility] Comment:The Calculated Mean Blood Glucose (CMBG) represents the estimated average glucose calculated from the measured hemoglobin A1c (HbA1c). There is no established normal range for the CMBG, however a 5.6% HbA1c (upper limit of normal) represents a CMBG of 114 mg/dL. 03/05/2025 11:5 3 AM EDT 03/05/2025 11:57 AM EDT us Cheryl Orellana MD, MSc LAB BLOOD BKR ORDERABL ES Final Result Performing Organization Address City/State/[facility] Co de Phone Number [facility] [address] [place] [phone] from Last 3 Months or Most Recently Relevant to Health Maintenance Insurance [facility] Advance Directives For more information, please contact: [phone] (9AM - 5PM [facility], Monday-Monday) Documents on File Type Date 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/06/2025 * Full Code (Latest Code Status on File) Date Activated Date Inactivated Comments 03/24/2025 9:17 AM Question Answer Comments Code Status Confirmed With: Patient * Full Code Date Activated Date Inactivated Comments 03/06/2025 6:42 PM 03/24/2025 9:17 AM Question Answer Comments Code Status Confirmed With: Patient Healthcare Agents on File Name Relationship Healthcare Agent Relationshi p Communication Demetrius Zimmerman Son Alternate Health care Agent (Proxy form on file) Payton Rodriguez Daughter Alternate Health care Agent (Proxy form on file) Patrice Rodriguez Spouse .Primary Health Care Agent (Proxy form on file) Care Teams Supervisor Filtration Relationship Specialty Start Date End Date Milton Rush MD [address] [place] [phone] PCP - General 02/03/25 John Barillas MD [address] [place] [phone] Referring Physician General Surgery 02/03/25 Cheryl Orellana MD, MSc [address] [place] [phone] [email or web address] Colon and Rectal Surgery 02/03/25 Henrry Patel MD [address] [place] [phone] [email or web address] Medical Oncology 02/03/25 Additional Source Comments The information contained in this document represents components of the legal health record. It is not the complete legal health record.[facility]
--- OUTSIDE RECORDS SUMMARY | 2025-06-20 20:05 | XMS_ITS ---
Author Name [facility] Organization Unknown Care Team Organization Name Specialty Phone Email Start Date End Da te [facility]MER Primary [facility] 06/14/2022
== END 2025-06-20 13:43 | disposition home or self-care (01) ==
LOC: HO.MRI 13:42
PROVIDERS: PCP Internal Medicine; Visit Provider Psychiatry & Neurology Neurology
DX: G40.109 Localization-related (focal) (partial) symptomatic epilepsy and epileptic syndromes with simple partial seizures, not intractable, without status epilepticus (principal)
CPT/HCPCS: 70553; A9585